=== PATIENT | female | born 1930 | race Caucasian/White ===

== ENCOUNTER 2017-02-11 23:58 | Inpatient (IN) | payer MEDICARE ==
[2017-02-12] MEDS ORDERED: Ondansetron HCl/PF 4 MG/2 ML Vial ONE (01:25)
[2017-02-12] MEDS ORDERED: Ondansetron ODT 4 MG TAB SL PRN (04:33)
[2017-02-12] MEDS ORDERED: Sodium Chloride 0.9% 1,000 ML IV SCH ×2 (04:33→06:07)
[2017-02-12] MEDS ORDERED: Acetaminophen 325 MG TAB PO PRN (04:33)
[2017-02-12] MEDS ORDERED: Ondansetron HCl/PF 4 MG/2 ML Vial IVP PRN ×2 (04:33→06:07)
[2017-02-12] MEDS ORDERED: cefTRIAXone\\ROCEPHIN 2 GM in Sodium Chloride 0.9% 100 ML IVPB SCH (08:00)
[2017-02-12] MEDS: Famotidine/PF 20 mg/2ml Vial SLOW IVP SCH ×2 (09:55→22:27)
[2017-02-12] MEDS ORDERED: Ketorolac Tromethamine 30 MG/ML VIAL IVP PRN (11:08)
[2017-02-12] MEDS ORDERED: Promethazine HCl 25 MG/ML VIAL IM/IV PRN (11:08)
[2017-02-12] MEDS ORDERED: Phytonadione 10 MG/ML AMP PO SCH (11:15)
[2017-02-12] MEDS ORDERED: ISOVUE-370 76%-LOCM 1 ML ONE (11:17)
--- NOTE | 2017-02-12 11:57 | CON ---
DATE OF CONSULTATION: 02/12/2017 GENERAL SURGERY CONSULTATION CHIEF COMPLAINT: Midepigastric pain. HISTORY OF PRESENT ILLNESS: This is an 86-year-old female with a 2-week history of epigastric and ri ght upper quadrant pain radiating to the back and shoulder, associated with nausea. She had fever la st night and pain got worse, came to the emergency room. She had gone to the emergency room in [facility] on the day after Jessica, 02/06/2017. There, they gave her oral antibiotics and she develo ped a rash afterwards, which she felt it was from the antibiotics. PAST MEDICAL HISTORY: Significant for coronary artery disease, hypertension, morbid obesity and hype rlipidemia. PAST SURGICAL HISTORY: Include a hysterectomy and aortic valve replacement with a bovine graft. She has had a laparoscopic hiatal hernia repair in [place] and left inguinal hernia repair. ALLERGIES: She has no known drug allergies. SOCIAL HISTORY: She lives alone. No tobacco or alcohol. FAMILY HISTORY: Noncontributory. PHYSICAL EXAMINATION: VITAL SIGNS: Temperature 98, pulse 62, blood pressure 128/68. GENERAL: She is an obese female lying still, in no apparent distress. HEENT: No jaundice. LUNGS: Clear. HEART: Regular rate and rhythm. ABDOMEN: She has petechiae across her abdomen, primarily in her lower extremities on the skin. Her abdomen is soft, very minimal tenderness. No peritoneal signs, no Tenorio's sign. LABORATORY AND X-RAY FINDINGS: She has a white count of 6.5, H&H 12 and 35, platelet count 132. Her PT is 40 with an INR of 4, PTT is 69.2. Electrolytes show an elevated glucose of 130. Her creatini ne is 1.22. Her liver function tests are normal. Amylase normal, lipase normal. Ultrasound shows a distended gallbladder with a 5 mm thickened wall, questionable sludge, questionable tiny gallstones, common bile duct is 7 mm. Pancreas was poorly defined. ASSESSMENT: Possible cholecystitis. PLAN: I would recommend a HIDA scan, IV antibiotics and we need to get her coags reverse.
[2017-02-12 12:06] LABS: #Monocytes 0.6 thou/uL (0.11-0.59); #Neutrophils 2.7 thou/uL (1.40-6.50); %Basophils 0.9 % (0.0-1.0); %Eosinophils 0.8 % (0.0-10.0); %Lymphocytes 22.3 % (21.0-51.0); %Monocytes 13.4 % (0.0-10.0); %Neutrophils 62.6 % (42.0-75.0); Hemoglobin 11.7 g/dL (12.0-16.0); Mean Platelet Volume 8.5 fL (7.4-10.4); Platelet Count 120 thou/uL (130-400); RBC Distribution Width 11.7 % (11.5-14.5); Red Blood Cell (RBC) Count 3.54 mill/uL (4.20-5.40); White Blood Cell (WBC) Count 4.4 thou/uL (4.8-10.8)
[2017-02-12 12:13] LABS: Fibrinogen 398 mg/dL (253-463)
[2017-02-12 12:14] LABS: D-Dimer Test 0.77 *mcg/mL (0.27-0.43); Prothrombin Time 48.6 SEC (12.0-14.7)
[2017-02-12 12:16] LABS: ALT (SGPT) 259 U/L (8-55); AST (SGOT) 615 U/L (5-34); Albumin 3.7 g/dL (3.4-4.8); Alkaline Phosphatase 313 U/L (40-150); Anion Gap 12 mmol/L (10-20); BUN (Urea Nitrogen) 13 mg/dL (9.8-20.1); Bilirubin, Total 0.3 mg/dL (0.2-1.2); Calc. Creatinine Clearance 46 mL/min (70-130); Carbon Dioxide 25 mmol/L (23-31); Chloride 104 mmol/L (98-107); Estimated GFR-MDRD 48; Globulin 2.7 g/dL (2.4-3.5); Glucose 126 mg/dL (83-110); Potassium 4.1 mmol/L (3.5-5.1); Protein, Total 6.4 g/dL (6.0-8.3); Sodium 137 mmol/L (136-145)
[2017-02-12 12:17] LABS: INR-International Normal Ratio 4.9
--- NOTE | 2017-02-12 12:26 | ULT ---
PRELIMINARY REPORT/[facility]/EMERGENCY AFTER HOURS PROCEDURE: EXAM: US Abdomen Limited, Right Upper Quadrant EXAM DATE/TIME: Exam ordered 02/12/2017 12:34 AM CLINICAL HISTORY: 86 years old, female; Pain; Other: Upper abd pain, abnormal gb seen on 02/07/[address] TECHNIQUE: Real-time ultrasound of the right upper quadrant with image documentation. COMPARISON: No relevant prior studies available. FINDINGS: Liver: Unremarkable. No mass. No intrahepatic bile duct dilation. Gallbladder: Gallbladder is substantially distended. Small amount of sludge and cholelithiasis. Gall bladder wall is mildly and diffusely thickened. Equivocal pericholecystic fluid. Sonographic Tenorio s ign reported as "slightly positive." Common bile duct: Common bile duct is at the upper limits of normal at 7 mm in caliber. The lumen daniel ears echogenic rather than fluid attenuation which raises the possibility of choledocholithiasis. No dilation. Pancreas: Suboptimally visualized pancreas. Right kidney: Unremarkable. No stones. No solid mass. No hydronephrosis. IMPRESSION: 1. Distended gallbladder with mild wall thickening, possible pericholecystic fluid, and "slightly pos itive" sonographic Tenorio's is compatible with acute cholecystitis. There is sludge and cholelithiasi s. 2. Common bile duct is at the upper limits of normal at 7 mm in caliber. The lumen appears echogenic rather than fluid attenuation which raises the possibility of choledocholithiasis. Recommend correla tion with CT scan. Thank you for allowing us to participate in the care of your patient. Dictated and Authenticated by: Cooper Medeiros MD 02/12/2017 1:37 AM Central Time ([place] & [place]) FINAL REPORT EMERGENT AFTER HOURS STUDY ULTRASOUND ABDOMEN LIMITED: (RIGHT UPPER QUADRANT) DATE: 02/12/17. TIME: 1:00 a.m. HISTORY: An 86-year-old female with upper abdominal pain. FINDINGS: Gallbladder: Distended. Mural thickening up to 5 mm. Positive tenderness over the gallbladder. Sma ll amount of sludge. Questionable 1 or 2 tiny mobile gallstones, a few millimeters in size each, adj acent to each other. Common duct: 7 mm. There is a small hyperechoic focus apparently within the lumen of the common bile duct, which may represent a calculus. The fluid contents of the lumen of the common duct are diffus kar mildly increased in echogenicity, which may represent sludge. Liver: No hepatomegaly. Echogenicity within normal limits. Pancreas: Very poorly visualized. Right kidney: No hydronephrosis. This report agrees with preliminary report by [employer]. IMPRESSION: 1. Possible acute cholecystitis: mural thickening of a distended gallbladder with a few questionabl e tiny gallstones, plus a small amount of sludge. 2. Probable choledocholithiasis. LESLIE Menchaca POS: TATIANA
[2017-02-12 12:45] LABS: FSP-Qualitative Normal (Normal)
[2017-02-12 12:46] LABS: Platelet Count 120 thou/uL (130-400)
[2017-02-12] MEDS ORDERED: Furosemide 40 MG/4 ML VIAL SLOW IVP SCH (13:00)
[2017-02-12] MEDS ORDERED: VANCOMYCIN IVPB PRN (13:23)
[2017-02-12] MEDS: Meropenem 1 GM in Sterile Water 20 ML SLOW IVP SCH ×2 (13:48→22:27)
[2017-02-12] MEDS ORDERED: Vancomycin HCl 1 GM in Premix Bag 1 BAG IVPB SCH (14:00)
[2017-02-12] MEDS ORDERED: Meropenem 1 GM in Sodium Chloride 0.9% 100 ML IVPB SCH (14:00)
--- NOTE | 2017-02-12 14:19 | PDOC.PN ---
- Subjective Encounter Start Date: 02/12/17 Encounter Start Time: 08:50 Subjective: sob+, no abd pain -: nausea++ - Objective Resuscitation Status: Resuscitation Status FULL:Full Resuscitation MAR Reviewed: Yes Vital Signs & Weight: Vital Signs (12 hours) Temp Pulse Resp BP Pulse Ox 02/12/17 12:00 91 L 02/12/17 11:06 98.2 F 63 16 149/73 H 89 L 02/12/17 09:45 98.2 F 63 16 91 L 02/12/17 07:49 98 F 62 14 128/68 91 L Weight Admit Weight 169 lb Weight 169 lb Result Diagrams: 02/12/17 11:33 02/12/17 11:32 Phys Exam - Physical Examination HEENT: PERRLA, moist MMs Neck: no JVD, supple Respiratory: no wheezing, no rales rhonchi++ Cardiovascular: RRR, no significant murmur Gastrointestinal: soft, non-tender, no distention, positive bowel sounds Musculoskeletal: no edema, pulses present Neurological: non-focal, moves all 4 limbs Psychiatric: A&O x 3 -: petechiae++ over abd wall and lower extremities Dx/Plan (1) Acute cholecystitis Code(s): K81.0 - ACUTE CHOLECYSTITIS Status: Acute (2) Choledocholithiasis Code(s): K80.50 - CALCULUS OF BILE DUCT W/O CHOLANGITIS OR CHOLECYST W/O OBST Status: Acute (3) CHF exacerbation Code(s): I50.9 - HEART FAILURE, UNSPECIFIED Status: Acute Qualifiers: Congestive heart failure type: unspecified congestive heart failure type Qualified Code(s): I50.9 - Heart failure, unspecified (4) H/O aortic valve replacement with porcine valve Code(s): Z98.890 - OTHER SPECIFIED POSTPROCEDURAL STATES; Z95.3 - PRESENCE OF XENOGENIC HEART VALVE Status: Chronic (5) Warfarin-induced coagulopathy Code(s): D68.9 - COAGULATION DEFECT, UNSPECIFIED; T45.515A - ADVERSE EFFECT OF ANTICOAGULANTS, INITIAL ENCOUNTER Status: Acute (6) Atrial fibrillation Code(s): I48.91 - UNSPECIFIED ATRIAL FIBRILLATION Status: Chronic Qualifiers: Atrial fibrillation type: paroxysmal Qualified Code(s): I48.0 - Paroxysmal atrial fibrillation (7) CAD (coronary artery disease) Code(s): I25.10 - ATHSCL HEART DISEASE OF [place] CORONARY ARTERY W/O ANG PCTRS Status: Chronic Qualifiers: Coronary Disease-Associated Artery/Lesion type: [place] artery [place] vs. transplanted heart: [place] heart Associated angina: without angina Qualified Code(s): I25.10 - Atherosclerotic heart disease of [place] coronary artery without angina pectoris (8) Hypertension Code(s): I10 - ESSENTIAL (PRIMARY) HYPERTENSION Status: Chronic Qualifiers: Hypertension type: essential hypertension Qualified Code(s): I10 - Essential (primary) hypertension - Plan change antibiotics to meropenem and vanc, blood cs stat -: platelets are chronically around 130's -: reverse coumadin, 3 units ffp, vit k -: one dose lasix iv now, npo -: tx to imcu, d/w and Deejay * . echo to r/o veg consult ?sepsis, petechiae, prosth valve d/w son and family in room HIDA when more stable reduce iv fluids to 50mls/hr as pt is npo Review of Systems - Medications/Allergies Allergies/Adverse Reactions: Allergies Allergy/AdvReac Type Severity Reaction Status Date / Time Penicillins Allergy Verified 02/12/17 09:09 Medications: Current Medications Albuterol/Ipratropium (Duoneb) 3 ml NEB [id number] [facility] Famotidine (Pepcid) 20 mg SLOW IVP Q12HR [facility] Last Admin: 02/12/17 09:55 Dose: 20 mg Furosemide (Lasix) 40 mg SLOW IVP 1300 [facility] Stop: 02/12/17 14:30 Last Admin: 02/12/17 13:47 Dose: 40 mg Sodium Chloride (Normal Saline 0.9%) 1,000 mls @ 75 mls/hr IV .[id number] [facility] Last Admin: 02/12/17 08:26 Dose: 1,000 mls Meropenem 1 gm/ Sterile Water 20 mls @ 240 mls/hr SLOW IVP Q8HR [facility] Last Admin: 02/12/17 13:48 Dose: 20 mls Vancomycin HCl 1 gm/ Device 200 mls @ 200 mls/hr IVPB 1400 [facility] Last Admin: 02/12/17 13:46 Dose: 200 mls Ketorolac Tromethamine (Toradol) 15 mg IVP Q6H PRN PRN Reason: Pain Stop: 02/17/17 11:09 Miscellaneous Medication (Pharmacy To Dose) 0 each IVPB DAILYPRN PRN PRN Reason: LABS Ondansetron HCl (Zofran) 4 mg IVP Q6H PRN PRN Reason: Nausea/Vomiting Last Admin: 02/12/17 09:54 Dose: 4 mg Phytonadione (Aquamephyton) 10 mg PO DAILY [facility] Stop: 02/14/17 07:00 Promethazine HCl (Phenergan) 25 mg IM/IV Q6H PRN PRN Reason: Nausea/Vomiting Sodium Chloride (Flush - Normal Saline) 10 ml IVF PRN PRN PRN Reason: Saline Flush
[2017-02-12] MEDS ORDERED: Dextrose 5 % And 0.9 % NaCl 1,000 ML IV SCH (14:30)
--- NOTE | 2017-02-12 15:57 | RAD ---
PORTABLE CHEST 1 VIEW: DATE: 02/12/17. TIME: 12:55 p.m. HISTORY: Nausea, upper abdominal pain, cholecystitis. FINDINGS: Comparison is made with the exam of previous day. There are changes of median sternotomy. The heart is enlarged. The aorta is tortuous. A left-sided pacing device is present. There is a suggestion of small bilateral pleural effusions. No pneumotho races or lobar consolidation are seen. POS: STEFFEN
--- NOTE | 2017-02-12 16:46 | CT ---
CT ABDOMEN WITH CONTRAST CT PELVIS WITH CONTRAST: DATE: 02-12-2017 TIME: 12:21 p.m. HISTORY: 86-year-old female with upper abdominal pain, nausea, and cholecystitis with sepsis. Rule out abscess . COMPARISON: 02-07-17 TECHNIQUE: IV injection of iodinated contrast media: Administered. Oral contrast media: Not administered. FINDINGS: Gallbladder is distended, has mural thickening, and mild pericholecystic edema, all suspicious for ac dangelo cholecystitis. There is no abscess within the abdominal cavity or pelvic cavity. There are new sm all bilateral pleural effusions. Again noted is the herniation of much of the stomach superior to the diaphragm, surrounded by multiple surgical clips. New mild interstitial and streaky densities at the bases of the bilateral lower lobes. Cardiomegaly. No evidence of pneumoperitoneum. Fat-containing le ft inguinal hernia, also containing a 3 x 2.5 x 2.5 cm focal fluid collection within it, probably rep resenting trapped intraperitoneal fluid which has herniated along with the fat. This does not contain any bowel loop. Small amount of free fluid flanking the rectum bilaterally, has slightly increased i n volume since the previous CT. There has been no other significant interval change. The oral contras t material from the previous CT is now only in the colon, with the greatest volume in the rectosigmoi d colon. No hydronephrosis bilaterally. One or two small left renal calculi again noted. Liver has sl ightly lower attenuation now than before. No splenomegaly. Atherosclerotic calcifications without ane urysm of the abdominal aorta. No small bowel dilatation. No acute pancreatitis. No adrenal mass. No s plenomegaly. No acute colonic diverticulitis. IMPRESSION: 1. New bilateral small pleural effusions. 2. Distended gallbladder with mural thickening and pericholecystic edema, concerning for acute cholec ystitis, similar to previous CT. 3. No evidence of abscess within the abdominal cavity or pelvic cavity. 4. Moderate to large hiatal hernia with surrounding surgical clips. 5. New finding of hepatic steatosis. 6. Minimal ascites, slightly increased in volume since the previous CT. 7. Incidental finding of fat containing left inguinal hernia, also containing a collection of intrape ritoneal fluid. 8. Left nephrolithiasis without obstructive uropathy. LESLIE Menchaca POS: TATIANA
--- NOTE | 2017-02-12 18:17 | CON ---
DATE OF CONSULTATION: 02/12/2017 CHIEF COMPLAINT: Abdominal pain. HISTORY OF PRESENT ILLNESS: Ms. Ventura is an 86-year-old woman, who has had intermittent epigastric pain over the last couple of weeks. She complains of aching pain, initially would not last very tigre g, but starting the day after [place] the pain became more constant and has remained there ever sin ce. She complains of epigastric to right upper quadrant pain. There is some radiation to her right back. However, she always has back pain, so this makes as difficult to distinguish. She went to the emergency room on 02/07/[address] scan performed. This showed gallbladder distention and wa ll thickening and possibly inflammatory fat stranding around the gallbladder. She was started on ant ibiotics and was discharged. Again the pain persisted, so she came back to the emergency room last n ight. She has had persistent nausea over the last several days with dry heaves. She has only had so me liquids over the last several days. She had an ultrasound performed in the emergency room last ni ght which showed mild wall thickening and pericholecystic fluid. Sludge and cholelithiasis was repor marin as present. The bile duct was noted to be 7 mm. The lumen was reported as more echogenic and fl uid density. She subsequently underwent CT scan of the abdomen and pelvis. This showed some pleural effusion and gallbladder wall thickening and gallbladder distention and possible inflammatory change s around the gallbladder. A fat containing inguinal hernia and a large hiatal hernia were noted. Kylee ramirez developed worsening respiratory status and her BNP was noted to increase from 800-1700. She requir ed a 50% Ventimask for oxygenation. She was subsequently given Lasix and her breathing immediately i mproved. Her oxygen requirement went back down to just nasal cannula and she was much more comfortab le overall. Currently, she is pain free since receiving the Lasix. PAST MEDICAL HISTORY: Atrial fibrillation, on chronic anticoagulation; history of pacemaker placemen t; coronary artery disease; hypertension. She had EGD and colonoscopy in 2014, which were negative. PAST SURGICAL HISTORY: Appendectomy, coronary artery bypass graft, bioprosthetic aortic valve replac ement, hiatal hernia repair, hysterectomy. FAMILY HISTORY: Negative for GI malignancy. SOCIAL HISTORY: No alcohol, tobacco or drugs. ALLERGIES: No known drug allergies. CURRENT MEDICATIONS: Prior to admission, warfarin, omeprazole, Multaq, aspirin, calcium carbonate, f ken oil, multiple vitamin, furosemide 20 mg daily, amlodipine, metoprolol, simvastatin, lamotrigine. Here in the hospital, she is receiving meropenem. She did receive a dose of vitamin K 10 mg orally. REVIEW OF SYSTEMS: Positive for a new petechial rash on her legs and lower abdomen. PHYSICAL EXAMINATION: VITAL SIGNS: Temperature 100.1, pulse 64, blood pressure 115/42. GENERAL: She is in no acute distress. She is awake and alert. Her son is at the bedside and her da [id number]. EYES: Her eyes have no scleral icterus. OROPHARYNX: Clear, without lesions. NECK: No cervical or supraclavicular lymphadenopathy. LUNGS: Have a few expiratory wheezes, some crackles in the lower lungs. HEART: Regular rate and rhythm. ABDOMEN: Soft, minimal tenderness in the upper abdomen. Negative Tenorio sign. No guarding. Her nettei wel sounds are present. EXTREMITIES: Trace lower extremity edema. She does have a petechial rash over the lower extremities below the knees and in the lower abdomen. LABORATORY DATA: Creatinine 1.09 down from 1.22 last night. Bilirubin 0.3. Her AST jumped to 615 t helen from 33 at 10:00 p.m. last night. Her ALT increased to 259 from 18. Her alkaline phosphatase i ncreased at 313 from 59. Her bilirubin remain stable at 0.3. Albumin 3.7. BNP last night was 843 a nd this morning 1788. INR was 4.9 today. Her white blood cell count was 4.4, hemoglobin 11.7, plate lets 120. She has had low platelets in the past back in 2014 that was 112, yesterday her platelets w ere 132 and on 02/07/2017 that were 150. IMPRESSION: 1. Likely cholecystitis. She presents with upper abdominal pain radiates toward the back and worsen s with eating. This has progressively been worsening over the last several days and is associated wi th nausea and vomiting. CT scan and ultrasound showed gallbladder wall thickening and distention and pericholecystic fluid. Gallstones and sludge were suggested by the most recent ultrasound. The nikolai e duct was mildly dilated at 7 mm, which is not very large for an 86-year-old. 2. Abnormal liver function tests. Her liver tests primarily transaminases and alkaline phosphatase jumped from last night to this morning. At the same time, she developed increased respiratory sympto ms from congestive heart failure. I suspect that the elevated liver tests are due to congestive hepa topathy with ischemia rather than choledocholithiasis. 3. Atrial fibrillation on warfarin. Her INR is increased to 4.9 and she has developed a petechial r shanell. This could be rule out related to infection. We will need to follow the trend of the coags and platelets. She has received vitamin K and we will give an opportunity for this to reverse her warfa rin. RECOMMENDATIONS: 1. Follow trend of the coags after vitamin K. 2. HIDA scan is planned for further evidence of acute cholecystitis. She symptomatically is greatly improved after receiving Lasix and if HIDA scan does confirm cholecystitis, then she will likely nee d cardiac followup for surgical risks. If she ultimately requires cholecystectomy, then intraoperati ve cholangiogram could be performed at the same time to rule out choledocholithiasis. 3. Follow the trend of the LFTs. 4. We will hold the FFP for now is that she does not appear to have immediate need for surgery and f luid overload seems to be a bigger problem for her currently. We will give a chance with vitamin K t o work and use FFP if it becomes necessary.
--- NOTE | 2017-02-12 21:18 | NM ---
HIDA SCAN: Indication: Concern for cholecystitis. Comparison: CT abdomen and pelvis, 02-12-17 and right upper quadrant ultrasound dated 02-12-17. Radiopharmaceutical: 5.4 mCi Technetium 99M MDP IV. FINDINGS: There is expected uptake of the radiotracer within the liver. Bowel activity is seen by the 6 minute time jesus. There is a faint focal collection seen adjacent to the region of the common bile duct, bet ween the left and right hepatic lobe, that increases in time through the one hour time jesus. The amou nt of activity appears to diminish slightly at the 38 minute time jesus through the 60 minute time mar k. Lateral projection demonstrates faint activity seen within the region of the anterior hepatic outl ine. There is prominent bowel activity on the lateral projection. IMPRESSION: Equivocal HIDA scan for cystic duct obstruction. There is a faint collection seen between the right a nd left hepatic lobe that accumulates throughout the 60 minute time jesus that may reflect partial grady ling of a distended gallbladder. Would recommend a repeat evaluation with pretreatment with CCK for a dditional evaluation. Findings were discussed with Dr. Villalba at 8:22 p.m. on 02-12-2017. Code CR. POS: [facility]
[2017-02-12] MEDS ORDERED: Acetaminophen 650 MG Suppository PR PRN (21:51)
[2017-02-12] MEDS: Acetaminophen 325 MG TAB PO PRN (22:28)
--- NOTE | 2017-02-12 22:57 | HP ---
DATE OF ADMISSION: 02/12/2017 TIME OF SERVICE: 0530 hours. CHIEF COMPLAINT: Abdominal pain. HISTORY OF PRESENT ILLNESS: Ms. Ventura is a pleasant 86-year-old white female with history of coron kristin artery disease, seizure disorder, atrial fibrillation, hyperlipidemia, hypertension as well as CK D, who presents to the emergency department again in [place] for ongoing abdominal pain. She presented initially on 02/07/2017 for abdominal pain, nausea, and vomiting. Workup revealed what looks like acute cholecystitis. Per the notes, her symptoms were mild and she was discharged home w [facility] outpatient followup. She returns on the night 02/11/2017 for the same symptoms. LABORATORY DATA: Largely unremarkable except for creatinine up from her baseline was around 0.8-1.22 . She was sent here for surgical evaluation. On arrival, Surgery was contacted, they agreed to consult, but told the ER to have her admit. The pa vonda denies any fevers or chills. No chest pain, shortness of breath noted. No nausea, vomiting at present. No current abdominal pain. PAST MEDICAL HISTORY: 1. Coronary artery disease. 2. Seizure disorder. 3. Hyperlipidemia, primary cholesterol. 4. Atrial fibrillation, paroxysmal. 5. Hiatal hernia. 6. Hypertension. 7. Chronic kidney disease, stage 2-3. 8. Congestive heart failure. PAST SURGICAL HISTORY: Include, 1. Pacemaker placement. 2. Appendectomy. 3. Coronary artery bypass grafting. 4. Left inguinal hernia repair with hiatal hernia repair. 5. Bioprosthetic aortic valve replacement. HOME MEDICATIONS: 1. Zanaflex 4 mg p.o. t.i.d. p.r.n. spasms. 2. Zocor 20 mg p.o. at bedtime. 3. Omeprazole 20 mg daily. 4. Multaq 400 mg p.o. b.i.d. 5. Amlodipine 5 mg daily. 6. Toprol-XL 100 mg daily. 7. Fish oil 1000 mg daily. 8. Lasix 20 mg daily. 9. Multivitamin daily. 10. Vitamin C 500 mg daily. 11. Calcium plus D daily. 12. Nitroglycerin sublingual p.r.n. ALLERGIES: To ASPIRIN, AMOXICILLIN causes rash, BACTRIM-DS causes rash. SOCIAL HISTORY: Negative for habits x3. FAMILY HISTORY: Negative for clotting or bleeding disorder. No immune dysfunction. REVIEW OF SYSTEMS: A 10-point review of systems was performed, negative for all systems except as pe r HPI. PHYSICAL EXAMINATION: VITAL SIGNS: Temperature on arrival 100.7, pulse 64, blood pressure 140/75, respiratory rate 22, sat ting 95% on room air. GENERAL: She is awake. She is alert. She is oriented x3. She is an obese elderly white female, ap pears to be in no distress. HEENT: Normocephalic, atraumatic. Pupils equal and reactive to light bilaterally. Mucous membranes are moist. She has no visible lesions. No thrush. NECK: Supple, without lymphadenopathy, JVD, or thyromegaly. CHEST: Lungs are clear. She has good air movement, symmetrical chest excursion. No wheezes or rale s. CARDIOVASCULAR: She is regular with normal rate. She has normal S1, S2. I do not appreciate holosy stolic murmurs. She does have faint 2/6 systolic ejection murmur, best heard at the right upper ster nal border. Pacer site on the left chest, incision is well healed. The pacemaker generator has good mobility. Previous sternotomy incision is well healed without any abnormalities. ABDOMEN: Obese. It is nontender and nondistended. She has no Tenorio sign. She has no rebound, rig idity or guarding. There is normoactive bowel sounds present in all x4 quadrants. EXTREMITIES: No cyanosis or clubbing. She has trace pedal edema. SKIN: Warm, moist, and well perfused. NEUROLOGIC: Cranial nerves II through XII grossly intact. She has no focal deficits. Normal speech and 5/5 strength. MUSCULOSKELETAL: Normal to inspection. She has no joints that are inflamed, no palpable effusions. LABORATORY DATA: CMP is normal except for creatinine of 1.22 of her baseline around 0.8. CBC showed a white count of 6.5 with normal differential, hemoglobin 12.1, hematocrit 35.7, platelet count 132, 000. RADIOGRAPHIC STUDIES: On 02/11/2017, she had chest x-ray that was negative for acute cardiopulmonary disease. On 02/07/2017, she has CT abdomen and pelvis with acute cholecystitis. ASSESSMENT AND PLAN: 1. Acute cholecystitis: We will admit her to inpatient. Surgery was then consulted. We will keep her n.p.o. and anticipate the possible surgery. 2. Coronary artery disease, without symptoms. Continue home medications. 3. Seizure disorder, no seizure since the first one that she had recently. She is not on any anti-s eizure medications. 4. Hyperlipidemia, primary cholesterol on Zocor, we will continue. 5. Hypertension. Continue home medications. 6. Chronic kidney disease with acute kidney injury, creatinine 1.22. We will give her IV fluids and re-evaluate in the morning. 7. Paroxysmal atrial fibrillation, and she is on Multaq. We will continue.
[2017-02-13 04:57] LABS: #Eosinphils 0.1 thou/uL (0.0-0.7); #Lymphocytes 1.2 thou/uL (1.20-3.40); #Monocytes 0.6 thou/uL (0.11-0.59); %Basophils 0.1 % (0.0-1.0); %Eosinophils 1.7 % (0.0-10.0); %Lymphocytes 24.2 % (21.0-51.0); %Monocytes 12.6 % (0.0-10.0); %Neutrophils 61.3 % (42.0-75.0); Hemoglobin 11.3 g/dL (12.0-16.0); Mean Corpuscular HGB CONC 32.4 g/dL (32.0-36.0); Mean Corpuscular Hemoglobin 33.5 pg (27.0-31.0); Mean Platelet Volume 8.6 fL (7.4-10.4); Platelet Count 111 thou/uL (130-400); RBC Distribution Width 11.6 % (11.5-14.5); Red Blood Cell (RBC) Count 3.38 mill/uL (4.20-5.40); White Blood Cell (WBC) Count 4.9 thou/uL (4.8-10.8)
[2017-02-13 04:58] LABS: ALT (SGPT) 159 U/L (8-55); AST (SGOT) 282 U/L (5-34); Albumin 3.1 g/dL (3.4-4.8); Alkaline Phosphatase 233 U/L (40-150); Anion Gap 11 mmol/L (10-20); BUN (Urea Nitrogen) 16 mg/dL (9.8-20.1); Bilirubin, Total 0.4 mg/dL (0.2-1.2); Calc. Creatinine Clearance 42 mL/min (70-130); Calcium 8.6 mg/dL (7.8-10.44); Carbon Dioxide 29 mmol/L (23-31); Chloride 100 mmol/L (98-107); Estimated GFR-MDRD 42; Globulin 2.5 g/dL (2.4-3.5); Glucose 85 mg/dL (83-110); Potassium 3.8 mmol/L (3.5-5.1); Protein, Total 5.6 g/dL (6.0-8.3); Sodium 136 mmol/L (136-145)
[2017-02-13 05:55] LABS: INR-International Normal Ratio 2.1; Prothrombin Time 24.7 SEC (12.0-14.7)
[2017-02-13] MEDS: Meropenem 1 GM in Sterile Water 20 ML SLOW IVP SCH ×3 (06:35→22:04)
[2017-02-13] MEDS ORDERED: Furosemide 40 MG/4 ML VIAL SLOW IVP SCH (08:15)
[2017-02-13] MEDS: Famotidine/PF 20 mg/2ml Vial SLOW IVP SCH ×2 (08:52→22:04)
[2017-02-13] MEDS ORDERED: Phytonadione 10 MG/ML AMP PO SCH (09:00)
--- NOTE | 2017-02-13 12:47 | PDOC.PN ---
- Subjective Encounter Start Date: 02/13/17 Encounter Start Time: 11:20 Subjective: is sitting in chair, feels good -: no abd pain or sob -: no nausea/chest pain/palp - Objective Resuscitation Status: Resuscitation Status FULL:Full Resuscitation MAR Reviewed: Yes Vital Signs & Weight: Vital Signs (12 hours) Temp Pulse Resp BP Pulse Ox 02/13/17 12:00 98.1 F 65 20 95/51 L 99 02/13/17 08:36 98 02/13/17 08:08 68 22 H 98 02/13/17 08:00 98.6 F 68 22 H 107/42 L 98 02/13/17 05:04 116/53 L 02/13/17 04:33 98.6 F 60 16 98/40 L 97 Weight Admit Weight 169 lb Weight 168 lb 14.4 oz I&O: 02/12/17 02/13/17 02/14/17 06:59 06:59 06:59 Intake Total 322 120 Output Total 2050 Balance -1728 120 Result Diagrams: 02/13/17 04:24 02/13/17 04:24 Phys Exam - Physical Examination HEENT: PERRLA, moist MMs Neck: no JVD, supple Respiratory: no wheezing, no rales Cardiovascular: RRR, no significant murmur Gastrointestinal: soft, non-tender, no distention, positive bowel sounds Musculoskeletal: no edema, pulses present Neurological: non-focal, moves all 4 limbs Psychiatric: A&O x 3 Dx/Plan (1) Acute cholecystitis Code(s): K81.0 - ACUTE CHOLECYSTITIS Status: Acute (2) Choledocholithiasis Code(s): K80.50 - CALCULUS OF BILE DUCT W/O CHOLANGITIS OR CHOLECYST W/O OBST Status: Suspected (3) CHF exacerbation Code(s): I50.9 - HEART FAILURE, UNSPECIFIED Status: Acute Qualifiers: Congestive heart failure type: unspecified congestive heart failure type Qualified Code(s): I50.9 - Heart failure, unspecified (4) H/O aortic valve replacement with porcine valve Code(s): Z98.890 - OTHER SPECIFIED POSTPROCEDURAL STATES; Z95.3 - PRESENCE OF XENOGENIC HEART VALVE Status: Chronic (5) Warfarin-induced coagulopathy Code(s): D68.9 - COAGULATION DEFECT, UNSPECIFIED; T45.515A - ADVERSE EFFECT OF ANTICOAGULANTS, INITIAL ENCOUNTER Status: Acute (6) Atrial fibrillation Code(s): I48.91 - UNSPECIFIED ATRIAL FIBRILLATION Status: Chronic Qualifiers: Atrial fibrillation type: paroxysmal Qualified Code(s): I48.0 - Paroxysmal atrial fibrillation (7) CAD (coronary artery disease) Code(s): I25.10 - ATHSCL HEART DISEASE OF [place] CORONARY ARTERY W/O ANG PCTRS Status: Chronic Qualifiers: Coronary Disease-Associated Artery/Lesion type: [place] artery [place] vs. transplanted heart: [place] heart Associated angina: without angina Qualified Code(s): I25.10 - Atherosclerotic heart disease of [place] coronary artery without angina pectoris (8) Hypertension Code(s): I10 - ESSENTIAL (PRIMARY) HYPERTENSION Status: Chronic Qualifiers: Hypertension type: essential hypertension Qualified Code(s): I10 - Essential (primary) hypertension - Plan inr is 2 this am, is getting vit k -: kcentra if any plans for surgery -: has diuresed well, total of 2 doses of lasix from yesterday -: oral lasix from am, LFT's are trending down, likely cause passive congestio -: clinically is much better today, to amb as tolerated, meropenem iv * . Review of Systems - Medications/Allergies Allergies/Adverse Reactions: Allergies Allergy/AdvReac Type Severity Reaction Status Date / Time Penicillins Allergy Verified 02/12/17 09:09 Medications: Current Medications Acetaminophen (Tylenol) 650 mg PO Q4H PRN PRN Reason: Headache/Fever or Pain Last Admin: 02/12/17 22:28 Dose: 650 mg Acetaminophen (Tylenol) 650 mg AL Q4H PRN PRN Reason: Headache/Fever or Pain Albuterol/Ipratropium (Duoneb) 3 ml NEB H3AO-LB BAYRON Last Admin: 02/13/17 08:08 Dose: 3 ml Famotidine (Pepcid) 20 mg SLOW IVP Q12HR B[place] Last Admin: 02/13/17 08:52 Dose: 20 mg Furosemide (Lasix) 40 mg PO DAILY-AC B[place] Meropenem 1 gm/ Sterile Water 20 mls @ 240 mls/hr SLOW IVP Q8HR BAYRON Last Admin: 02/13/17 06:35 Dose: 20 mls Ketorolac Tromethamine (Toradol) 15 mg IVP Q6H PRN PRN Reason: Pain Stop: 02/17/17 11:09 Miscellaneous Medication (Pharmacy To Dose) 0 each IVPB DAILYPRN PRN PRN Reason: LABS Ondansetron HCl (Zofran) 4 mg IVP Q6H PRN PRN Reason: Nausea/Vomiting Last Admin: 02/12/17 09:54 Dose: 4 mg Phytonadione (Aquamephyton) 10 mg PO DAILY BAYRON Stop: 02/14/17 07:00 Last Admin: 02/13/17 09:48 Dose: 10 mg Promethazine HCl (Phenergan) 25 mg IM/IV Q6H PRN PRN Reason: Nausea/Vomiting Sodium Chloride (Flush - Normal Saline) 10 ml IVF PRN PRN PRN Reason: Saline Flush Last Admin: 02/13/17 08:53 Dose: 10 ml
--- NOTE | 2017-02-13 12:59 | CON ---
DATE OF CONSULTATION: 02/13/2017 REASON FOR CONSULTATION: Skin rash. HISTORY OF PRESENT ILLNESS: An 86-year-old patient who has a history of coronary disease and ischemic cardiomyopathy with previous bioprosthetic valve replacement, aortic valve, as well as atrial fibrillation, on chronic Coumadin, who developed abdominal pain for the past 2 weeks, initially seen in [place] and diagnosed with acute cholecystitis and given antimicrobials, but due to persistence of pain, she eventually was admitted. Initial findings included temperature 100.7, pulse 64, BP 140/75, respiratory rate 22. She was awake, alert, and oriented. Pertinent findings on exam, lung exam was normal. Heart examination was normal except for 2/6 systolic murmur. Abdomen is nondistended and nontender. Initial labs with white cell count 4.4, hemoglobin 11, platelets 120,000 with 62 % neutrophils. INR was 4.9. Sodium 137, creatinine 1.09 and 1.21, AST 615 and 282, ALT 259 and 159, alkaline phosphatase 313 and 233. BNP 1700, albumin 3.7 and 3.1. Microbiology thus far we have negative blood cultures and urine culture. The imaging studies included abdomen and pelvis CT from yesterday which showed pleural effusions, distended gallbladder with mural thickening and pericholecystic edema, no abscess, minimal ascites, nephrolithiasis without obstruction. Currently, Ms. Ventura is sitting up in bed. She denies headaches, visual symptoms, sore throat, odynophagia, dysphagia, no dyspnea or back pain, no chest pain, no abdominal pain, no dysuria. PHYICAL EXAMINATION: SKIN: Petechial lesions in the lower extremities only. The patient has peripheral IV access. No [place] catheter. No lymphadenopathy. HEENT: Ocular movements are conjugate. Oral cavity, still quite a few teeth in place, some decay. NECK: Supple. No jugular venous distention. LUNGS: With symmetric air entry with faint basilar crackles. HEART: S1, S2 regular rate, soft aortic murmur. Pacer site okay. ABDOMEN: Soft and not distended or tender. No ascites. No bladder distention. No organomegaly. No tenderness. EXTREMITIES: No joint inflammatory activity. Pulses are 1+ in dorsalis pedis, 1+ edema in lower extremities. NEUROLOGIC: Plantar responses are flexor. Moves all extremities equally. Cognitive function appears intact. LABORATORY AND X-RAY FINDINGS: Lab data has been discussed above as well as imaging studies. She had hepatobiliary scan done yesterday which showed a possible cystic duct obstruction. ASSESSMENT: Acute cholecystitis in the setting of cardiomyopathy with pacemaker and prior aortic valve replacement. There might be obstructing of the cystic duct associated with this. The patient has petechial rash lower extremities only. DISCUSSION: The patient is on proper treatment and I do not think the vancomycin is necessary. Since the petechial rash is limited to the lower extremities, this seems to have an element of hydrostatic pressure plus platelet dysfunction and thrombocytopenia, all contributing to the finding. Bacteremic associated with leukocytoclastic vasculitis, but I do not think she has evidence to suggest that since most of the petechial rash is limited to the lower extremities. Therefore, again hydrostatic phenomenon plus the combination of platelet dysfunction and thrombocytopenia are contributing to this. Coumadin can be associated with vasculitis and obstructive arteriopathy, which can be associated with petechia, but she does not have the other manifestations, typical of it. Vitamin deficiencies such as vitamin C deficiency can be associated with purpura, but does not look like she has any nutritional issues at least until the development of cholecystitis. I would not recommend any active management of this thrombocytopenia as long as there is no progression with it. She will eventually require cholecystostomy, which is not deemed to be a candidate for cholecystectomy. TUSHAR
--- NOTE | 2017-02-13 18:11 | PRG ---
DATE OF SERVICE: 02/13/2017 SUBJECTIVE: She has no acute complaints today. She is breathing better and does not have any abdomi nal pain currently. OBJECTIVE: VITAL SIGNS: Temperature 99.0, pulse 92, blood pressure 100/43. GENERAL: She is in no acute distress, awake and alert. LUNGS: Clear to auscultation bilaterally. HEART: Regular rate and rhythm. ABDOMEN: Minimal tenderness in the epigastric region. There is no guarding and her bowel sounds are present. EXTREMITIES: No lower extremity edema. LABORATORY DATA: INR is down to 2.1. AST improved to 282, ALT improved to 159, alkaline phosphatase improved to 233, bilirubin remains 0.4. IMPRESSION: 1. Likely cholecystitis. The HIDA scan was not definitive. 2. Abnormal liver function test. I do not think that she has choledocholithiasis. Her elevated tra nsaminases and alkaline phosphatase acutely were likely due to congestive hepatopathy. Sepsis also c ould cause cholestasis and transaminitis, but the high AST with the sudden rise and drop is most cons istent with ischemic etiology. RECOMMENDATIONS: 1. Continue to follow the trend of the liver function tests. 2. She remains on meropenem. 3. Repeat HIDA scan has been scheduled for tomorrow.
[2017-02-14 05:25] LABS: ALT (SGPT) 106 U/L (8-55); AST (SGOT) 146 U/L (5-34); Albumin 3.1 g/dL (3.4-4.8); Alkaline Phosphatase 190 U/L (40-150); Anion Gap 11 mmol/L (10-20); BUN (Urea Nitrogen) 15 mg/dL (9.8-20.1); Bilirubin, Total 0.4 mg/dL (0.2-1.2); Calc. Creatinine Clearance 54 mL/min (70-130); Calcium 8.6 mg/dL (7.8-10.44); Carbon Dioxide 29 mmol/L (23-31); Chloride 99 mmol/L (98-107); Estimated GFR-MDRD 57; Globulin 2.4 g/dL (2.4-3.5); Glucose 87 mg/dL (83-110); Potassium 3.3 mmol/L (3.5-5.1); Protein, Total 5.5 g/dL (6.0-8.3); Sodium 136 mmol/L (136-145)
[2017-02-14] MEDS: Meropenem 1 GM in Sterile Water 20 ML SLOW IVP SCH ×3 (05:27→21:32)
[2017-02-14 05:29] LABS: INR-International Normal Ratio 1.3; Prothrombin Time 16.2 SEC (12.0-14.7)
[2017-02-14 06:01] LABS: Eosinophils 4 % (0-10); Lymphocytes 31 % (21-51); MDiff Complete? YES; Mean Corpuscular HGB CONC 32.1 g/dL (32.0-36.0); Mean Corpuscular Hemoglobin 32.9 pg (27.0-31.0); Mean Platelet Volume 8.7 fL (7.4-10.4); Monocytes 19 % (0-10); Neutrophil 43 % (42-75); PLT Morphology Comment Appears Decreased; Platelet Count 110 thou/uL (130-400); RBC Distribution Width 11.6 % (11.5-14.5); RBC Morphology Normal; Reactive Lymphocytes 3 % (0-10); Red Blood Cell (RBC) Count 3.65 mill/uL (4.20-5.40); White Blood Cell (WBC) Count 4.9 thou/uL (4.8-10.8)
[2017-02-14] MEDS ORDERED: Morphine 2 MG/ML SYRINGE SLOW IVP SCH (10:45)
[2017-02-14] MEDS: Furosemide 40 MG TAB PO SCH (12:05)
[2017-02-14] MEDS: Famotidine/PF 20 mg/2ml Vial SLOW IVP SCH ×2 (12:05→21:32)
--- NOTE | 2017-02-14 13:28 | NM ---
HIDA SCAN: CLINICAL HISTORY: Cholecystitis. RADIOPHARMACEUTICAL: Technetium 99m mebrofenin 5.1 millicuries IV. MEDICATION: Cholecystokinin 1.5 mg thirty minutes prior to injection. Morphine sulfate 2 mg IV. FINDINGS: There is absence of activity within the gallbladder with 60 minutes of imaging. Subsequent to the in jection of morphine, there is scintigraphic activity localizing to the expected confines of the gallb ladder lumen. IMPRESSION: Nonvisualization of the gallbladder by 60 minutes of imaging. Subsequent to morphine injection, ther e is evidence to indicate scintigraphic activity within the gallbladder lumen. Findings indicate chr onic cholecystitis. Correlate clinically. POS: TATIANA
[2017-02-14 15:29] VITALS: BMI 26.0
[2017-02-14] MEDS: Dronedarone HCl 400 MG TAB PO SCH (16:43)
--- NOTE | 2017-02-14 18:30 | CON ---
DATE OF CONSULTATION: 02/14/2017 HISTORY OF PRESENT ILLNESS: Hawa Ventura is a pleasant 86-year-old white female who follows since 12/2002. At that time, she explained about her chest discomfort that occurred sitting right in a car ; however, she started to have that while walking at work, relieved in 3 minutes with rest. She serjio ed any shortness of breath, nausea, vomiting or diaphoresis. Echo revealed ejection fraction of 60-6 5% with aortic valvular fibrosis, mild aortic insufficiency, mild tricuspid regurgitation and moderat e mitral regurgitation. She underwent stress echo testing, exercised for 6 minutes and had her usual upper chest discomfort with [address] segment depression in II, III and aVF, which resolved in 1 mi nute and then later became downsloping during recovery. Echo revealed ischemia in the inferoposterio r wall. She underwent catheterization and had ejection fraction of 55-60% with mild mitral regurgita tion. There was 30% proximal LAD. It was felt that her chest pain was not cardiac in nature. She a lso complained of a tremor and was placed on Inderal and her tremor improved. I did not see her again until 8 years later in April 2010. She complained of chest tightness after w alking 500 yards, resolved in 2-3 minutes with rest. This has been occurring for 3 or 4 months. She also occasionally would have discomfort at night. She denied any shortness of breath, nausea, vomit ing or diaphoresis. She had since stopped the Inderal and her tremor was not bothering her much. Ec hocardiogram revealed a somewhat hyperdynamic left ventricle with ejection fraction of 65%-70%, moder ate concentric left ventricular hypertrophy, moderate mitral regurgitation, mitral annular calcificat ion, mild aortic regurgitation and severe aortic stenosis with peak gradient of 96 mm, mean gradient of 67 mm, moderate tricuspid regurgitation, and mild pulmonic regurgitation. She underwent cardiac c atheterization. The mean left ventricular - aortic gradient was 50 mm with an aortic valve area of 0 .82 cm2. There was mild aortic insufficiency. Left ventricular ejection fraction was 70-75%. There was a 40-50% proximal LAD, 30% proximal circumflex. She then underwent aortic valve replacement by Dr. Lyle Curran with placement of a #21 Magna bioprosthetic aortic valve. Postoperatively, she had atrial fibrillation, controlled with Cardizem drip. She was placed back on her beta harsha and ult imately was placed on Cardizem and amiodarone. Ultimately amiodarone was discontinued. In 03/2012, she presented with a seizure, also complains of left-sided chest discomfort. She was fou nd to have atrial fibrillation at that time. She had been on anticoagulation at the time of admissio n for paroxysmal atrial fibrillation. Echo revealed left atrial enlargement, normal left ventricular systolic function and a bioprosthetic aortic valve. She underwent Cardiolite testing which was norm al. She was then placed on Coumadin. She would have episodes where she became extremely bradycardic with heart rates in the 30s and had greater than four second pauses. A dual chamber pacemaker was t hen placed. She was also placed on Multaq 400 mg b.i.d. due to her paroxysmal atrial fibrillation. On her pacemaker time, she has been seen to have increased episodes of atrial fibrillation. Her meto prolol dose has been gradually increased to 100 mg b.i.d. and this in combination with the Multaq. I t has pretty much kept her out of atrial fibrillation for the past year or two. Also in 09/2015, she complained of exertional chest discomfort and she underwent Lexiscan Cardiolite testing which was pr obably normal with ejection fraction of 76%. Echocardiogram also at that time revealed ejection frac tion of 60-65%, mild left atrial enlargement, severe mitral annular calcification, moderate mitral re gurgitation, bioprosthetic aortic valve with normal function, moderate tricuspid regurgitation and mo derate pulmonic insufficiency. She has been relatively asymptomatic for the last 2 visits to the office, the last of which was in . She now presents with 2-3 days of abdominal pain. Abdominal and pelvis CT in [place] re vealed gallbladder distention following with gallbladder wall thickening and possible pericholecystic inflammatory fat stranding, and small amount of pelvic fluid. Abdominal ultrasound revealed a stent in gallbladder with mild wall thickening, possible pericholecystic fluid, and slightly positive Murp hy's sign. There is sludge and cholelithiasis, bile duct was at the upper limits were normal. She w as then placed on antibiotics and her Coumadin has been held. She denies any recent chest discomfort , shortness of breath, PND, orthopnea, or leg edema. PAST MEDICAL HISTORY: Hypertension, hypercholesterolemia. No history of diabetes, mild coronary art sunday disease, seizure disorder which may in reality have been due to sinus pause and syncope, paroxysm al atrial fibrillation, chronic kidney disease. OPERATIONS: Aortic valve replacement with bioprosthetic valve, dual-chamber pacemaker placement, dainel endectomy, hiatal hernia repair, left inguinal herniorrhaphy. HOME MEDICATIONS: Include Zanaflex 4 mg t.i.d. p.r.n., simvastatin 20 at bedtime, omeprazole 20 vicente y, Multaq 400 mg b.i.d., amlodipine 5 mg daily, metoprolol 100 daily, warfarin, Lasix 20 daily, multi vitamin daily, calcium plus D, and nitroglycerin p.r.n. ALLERGIES: Include AMOXICILLIN causing rash, BACTRIM causing a rash and ASPIRIN will be avoided with WARFARIN. SOCIAL HISTORY: She does not smoke or drink. FAMILY HISTORY: Brother had CABG. REVIEW OF SYSTEMS: Twelve point review of systems otherwise unremarkable. PHYSICAL EXAMINATION: VITAL SIGNS: Blood pressure 99/51, pulse 72. HEENT: PERRL. NECK: Supple. CHEST: Clear. CARDIAC: S1 and S2 are normal, without any S3 or S4. There is a 2/6 systolic ejection murmur in the aortic area along the left sternal border. Carotid upstrokes are normal without bruits. ABDOMEN: Normal bowel sounds without tenderness, organomegaly except for slight tenderness in the ri ght upper quadrant. EXTREMITIES: Revealed no clubbing, cyanosis or edema. NEUROLOGIC: Grossly intact. SKIN: Warm and dry. LABORATORY DATA: EKG revealed atrial pacing, but otherwise unremarkable. X-ray findings as noted ab ove. Hemoglobin 12.0, hematocrit 37.3, white count 4900, platelets 110,000. INR on admission was 4. 0, went up to 4.9, but now is down to 1.3. Sodium 136, potassium 3.3, chloride 99, carbon dioxide 29 , BUN 11, creatinine 0.93. AST on admission was 615, ALT 259, alkaline phosphatase 313 and these hav e fallen to 146, 106 and 190 respectively. BNP 1788.1. IMPRESSION: 1. Acute cholecystitis with probable passing of stone. 2. Minimal coronary artery disease on catheterization in May 2010 with 40-50% proximal left anteri or descending and 30% proximal circumflex. She also had probably normal Cardiolite in 09/2015. 3. Status post aortic valve replacement. 4. Normal left ventricular function. 5. Status post pacemaker placement for 4-second pauses and history of syncope with seizure. 6. Paroxysmal atrial fibrillation, which appears to be under good control with beta harsha and Mult aq. 7. Hypercholesterolemia. 8. Seizures, which may have been due to sinus pause. 9. Hypertension. 10. Positive family history. 11. Venous insufficiency. PLAN: The patient will be maintained on her usual medicines except holding the warfarin. She is cur rently being treated with antibiotics and pressure was somewhat low and metoprolol also will be held. This should be restarted as soon as her pressure will allow to help keep her from developing atrial fibrillation. Multaq will also be resumed. Ms. Ventura appears to be an acceptable cardiac risk fo r general anesthesia and laparoscopic cholecystectomy with minimal coronary artery disease and cathet erization 7 years ago and normal Cardiolite one and a half years ago. I will follow the patient with you.
[2017-02-15] MEDS: Dronedarone HCl 400 MG TAB PO SCH ×2 (06:21→18:52)
[2017-02-15] MEDS: Meropenem 1 GM in Sterile Water 20 ML SLOW IVP SCH ×3 (07:01→21:27)
[2017-02-15] MEDS ORDERED: Midazolam HCl 2 mg/2 ml Vial ONE (07:33)
[2017-02-15] MEDS ORDERED: Fentanyl 100 MCG/2 ML VIAL ONE (07:33)
[2017-02-15] MEDS ORDERED: Bupivacaine 0.25% HCL 30 ML VIAL ONE (07:45)
[2017-02-15] MEDS ORDERED: Iothalamate Meglumine 60% 50 ML VIAL FS ONE (07:45)
[2017-02-15] MEDS ORDERED: Levofloxacin 500 mg/D5W 100 ml Premix Bag ONE (07:52)
[2017-02-15] MEDS ORDERED: Meperidine HCl/PF 25 MG/ML VIAL SLOW IVP PRN (07:53)
[2017-02-15] MEDS ORDERED: Promethazine HCl 25 MG/ML VIAL SLOW IVP PRN (07:53)
[2017-02-15] MEDS ORDERED: Morphine Sulfate 2 MG/ML SYRINGE SLOW IVP PRN (07:53)
[2017-02-15] MEDS ORDERED: Promethazine HCl 25 MG/ML VIAL IM PRN ×2 (07:53→09:23)
[2017-02-15] MEDS ORDERED: Ondansetron HCl/PF 4 MG/2 ML Vial IVP PRN ×2 (07:53→09:23)
[2017-02-15] MEDS ORDERED: HYDROcodone/Acetaminophen 10/325 mg Tablet PO PRN ×2 (09:23)
[2017-02-15] MEDS ORDERED: Morphine 4 MG/ML Carpuject SLOW IVP PRN (09:23)
[2017-02-15] MEDS ORDERED: Mag-Al 1200 mg/1200 mg/30 ML UDCUP PO PRN (09:23)
[2017-02-15] MEDS ORDERED: hydrALAZINE 20 MG/ML VIAL SLOW IVP PRN (09:23)
[2017-02-15] MEDS ORDERED: Calcium Carbonate 500 MG ChewTAB PO PRN (09:23)
[2017-02-15] MEDS ORDERED: Dextrose 50% Abboject 50 ML SYRINGE SLOW IVP PRN (09:23)
[2017-02-15] MEDS ORDERED: Dextrose 5% in Water 1,000 ML IV PRN (09:23)
[2017-02-15] MEDS ORDERED: Sodium Chloride 0.9% 1,000 ML IV SCH (09:30)
[2017-02-15] MEDS ORDERED: Naloxone HCl 0.4 mg/ml Vial ONE (09:36)
[2017-02-15] MEDS ORDERED: Morphine 4 MG/ML VIAL SLOW IVP PRN ×2 (09:41→09:45)
[2017-02-15] MEDS ORDERED: Glycopyrrolate 0.2 MG/ML 5 ML SYRINGE ONE ×2 (09:41→13:31)
--- NOTE | 2017-02-15 10:11 | OP ---
DATE OF PROCEDURE: 02/15/2017 PREOPERATIVE DIAGNOSIS: Acute cholecystitis. SURGEON: Fer Villalba M.D. PROCEDURE PERFORMED: Laparoscopic cholecystectomy with intraoperative cholangiogram. INDICATIONS: The patient is an 86-year-old female who presented with severe epigastric and right upp er quadrant pain. She was over anticoagulated. She was on Coumadin. She had an ultrasound that ini tially showed a questionable stone. CT did show the stones. HIDA scan showed a faint amount of cont rast within the gallbladder. She did have elevated liver functions. FINDINGS: Thickened gallbladder wall, normal cholangiogram. PROCEDURE: After informed consent was obtained, the patient was taken to the operating room and give n general endotracheal anesthesia. She was placed in the supine position, abdomen was prepped and dr aped in the usual fashion. Local anesthesia infiltrated subcutaneously and deep and a subumbilical i ncision was performed. The subcu divided sharply. The fascia grasped and 2 stay sutures of 0 Vicryl placed to either side of midline. Midline incised. Digital palpation revealed no local adhesions. A blunt 10/12 mm trocar inserted. Pneumoperitoneum was created to a pressure of 15 mmHg. A 0 degre e laparoscope inserted. Under direct vision, three 5 mm ports placed subcostally. The gallbladder g rasped and advanced superiorly. The peritoneum lysed to expose the cystic duct, cystic artery and cr itical view. A clip was placed at the base of the gallbladder. Incision made in the cystic duct. A n Arrow cholangiocatheter inserted. Intraoperative cholangiogram was performed utilizing fluoroscopy , showed free flow into the duodenum, no filling defects. The catheter removed. The duct triply lig ated with Hemoclips and divided. The artery triply ligated with Hemoclips and divided. The gallblad aldo was removed from its fossa utilizing electrocautery, removed from the abdomen through the umbilic al port. Hemostasis was assured. Trocars and retractors removed. The fascia closed with interrupte d 0 Vicryl suture. The skin closed with interrupted 4-0 Rapide. Dermabond applied. The patient roberto erated the procedure well and transferred to recovery in good condition. Sponge and needle count les ified correct x2.
--- NOTE | 2017-02-15 10:35 | RAD ---
INTRAOPERATIVE CHOLANGIOGRAM: Date: 02-15-17 History: Cholecystectomy. Intraoperative cholangiogram requested to evaluate for biliary filling defe ct. FINDINGS: Two intraoperative images are provided during intraoperative cholangiogram. There is a possible subcentimeter filling defect noted on both images within the distal CBD just prox imal to the region of the ampulla of Vater. IMPRESSION: Findings suspicious for a subcentimeter filling defect within the distal CBD just proximal to the amp eddy of Vater. Correlation with real-time imaging required. This could be on the basis of choledochol ithiasis, air bubble or potentially blood clot. POS: TATIANA
[2017-02-15] MEDS: Famotidine/PF 20 mg/2ml Vial SLOW IVP SCH (10:50)
[2017-02-15] MEDS: Furosemide 40 MG TAB PO SCH (10:50)
[2017-02-15] MEDS ORDERED: Dexamethasone 20 MG/5 ML VIAL ONE (13:31)
[2017-02-15] MEDS ORDERED: PROPOFOL 200 MG/20 ML VIAL ONE (13:31)
[2017-02-15] MEDS ORDERED: ePHEDrine/0.9% NaCl/PF SYRINGE 50 mg/10 ml ONE (13:31)
[2017-02-15] MEDS ORDERED: Lidocaine 1% PF 5 ML VIAL ONE (13:31)
[2017-02-15] MEDS ORDERED: Ondansetron HCl/PF 4 MG/2 ML Vial ONE (13:31)
--- NOTE | 2017-02-15 14:35 | PDOC.PN ---
- Subjective Encounter Start Date: 02/15/17 Encounter Start Time: 14:33 Subjective: feels much better. no new complaints. -: s/p Lap salv[place] this morning.no AP,no N/V/D - Objective Resuscitation Status: Resuscitation Status FULL:Full Resuscitation MAR Reviewed: Yes Vital Signs & Weight: Vital Signs (12 hours) Temp Pulse Resp BP Pulse Ox 02/15/17 14:33 96 02/15/17 14:27 74 24 H 96 02/15/17 12:21 98.2 F 71 16 108/57 L 97 02/15/17 10:35 99.1 F 73 16 101/50 L 94 L 02/15/17 07:00 98.4 F 73 18 104/53 L 94 L 02/15/17 04:30 93 L 02/15/17 04:00 98.9 F 80 18 102/48 L 93 L Weight Admit Weight 169 lb Weight 166 lb 4.8 oz I&O: 02/14/17 02/15/17 02/16/17 06:59 06:59 06:59 Intake Total 1661 742 Output Total 2150 300 Balance -489 442 Result Diagrams: 02/14/17 04:27 02/14/17 04:27 Additional Labs: Microbiology 02/12/17 Unknown Urine voided Urine Culture - Final 02/12/17 13:15 Venous blood - Left Hand Blood Culture - Preliminary NO GROWTH AT 48 HOURS 02/12/17 13:08 Venous blood - Left Arm Blood Culture - Preliminary NO GROWTH AT 48 HOURS Laboratory Tests 02/11/17 02/11/17 02/12/17 22:10 22:10 11:32 Creatinine 1.22 H 1.09 AST 615 H ALT 259 H Alkaline Phosphatase 313 H B-Natriuretic Peptide 843.8 H 02/12/17 02/13/17 02/14/17 11:33 04:24 04:27 Creatinine 1.21 H 0.93 AST 282 H 146 H ALT 159 H 106 H Alkaline Phosphatase 233 H 190 H B-Natriuretic Peptide 1788.1 H Phys Exam - Physical Examination Constitutional: NAD pale HEENT: PERRLA, moist MMs, sclera anicteric, oral pharynx no lesions Neck: no nodes, no JVD, supple, full ROM Respiratory: no wheezing, no rales, no rhonchi, clear to auscultation bilateral Cardiovascular: RRR, no significant murmur Gastrointestinal: soft, non-tender, no distention, positive bowel sounds surgical sites look Ok Musculoskeletal: no edema, pulses present Neurological: non-focal, normal sensation, moves all 4 limbs Psychiatric: normal affect, A&O x 3 Skin: no rash Dx/Plan (1) Transaminitis Code(s): R74.0 - NONSPEC ELEV OF LEVELS OF TRANSAMNS & LACTIC ACID DEHYDRGNSE Status: Acute (2) Acute cholecystitis Code(s): K81.0 - ACUTE CHOLECYSTITIS Status: Acute (3) Warfarin-induced coagulopathy Code(s): D68.9 - COAGULATION DEFECT, UNSPECIFIED; T45.515A - ADVERSE EFFECT OF ANTICOAGULANTS, INITIAL ENCOUNTER Status: Acute (4) H/O aortic valve replacement with porcine valve Code(s): Z98.890 - OTHER SPECIFIED POSTPROCEDURAL STATES; Z95.3 - PRESENCE OF XENOGENIC HEART VALVE Status: Chronic (5) SIRS (systemic inflammatory response syndrome) Code(s): R65.10 - SIRS OF NON-INFECTIOUS ORIGIN W/O ACUTE ORGAN DYSFUNCTION Status: Acute (6) Atrial fibrillation Code(s): I48.91 - UNSPECIFIED ATRIAL FIBRILLATION Status: Chronic Qualifiers: Atrial fibrillation type: paroxysmal Qualified Code(s): I48.0 - Paroxysmal atrial fibrillation (7) CAD (coronary artery disease) Code(s): I25.10 - ATHSCL HEART DISEASE OF [place] CORONARY ARTERY W/O ANG PCTRS Status: Chronic Qualifiers: Coronary Disease-Associated Artery/Lesion type: [place] artery [place] vs. transplanted heart: [place] heart Associated angina: without angina Qualified Code(s): I25.10 - Atherosclerotic heart disease of [place] coronary artery without angina pectoris (8) Hypertension Code(s): I10 - ESSENTIAL (PRIMARY) HYPERTENSION Status: Chronic Qualifiers: Hypertension type: essential hypertension Qualified Code(s): I10 - Essential (primary) hypertension (9) Chronic diastolic CHF (congestive heart failure) Code(s): I50.32 - CHRONIC DIASTOLIC (CONGESTIVE) HEART FAILURE Status: Chronic Comment: ECHO with NL EF (10) Pacemaker Code(s): Z95.0 - PRESENCE OF CARDIAC PACEMAKER Status: Chronic - Plan plan discussed w/ family, continue antibiotics, PT/OT, respiratory therapy, incentive spirometry, out of bed/ambulate, DVT proph w/SCDs cont meropenam.Post-op care. am labs. -: BNP high.cont Lasix.check CXR.repeat BNP in am -: HR controlled.cont Multaq.cardiology following. -: INR improved.coumadin on hold.Restart w Ok w GS. -: Metoprolol on hold for low BP .monitor & restart if BP better * .DC IVF to prevent fluid OL. * add OT,PT. * likley home in next 24 hours w HH.refuses rehab * am labs Review of Systems - Review of Systems Constitutional: weakness, malaise. negative: fever, chills, sweats, other ENT: negative: Ear Pain, Ear Discharge, Nose Pain, Nose Discharge, Nose Congestion, Mouth Pain, Mouth Swelling, Throat Pain, Throat Swelling, Other Respiratory: negative: Cough, Dry, Shortness of Breath, Hemoptysis, SOB with Excertion, Pleuritic Pain, Sputum, Wheezing Cardiovascular: negative: chest pain, palpitations, orthopnea, paroxysmal nocturnal dyspnea, edema, light headedness, other Gastrointestinal: negative: Nausea, Vomiting, Abdominal Pain, Diarrhea, Constipation, Melena, Hematochezia, Other Genitourinary: negative: Dysuria, Frequency, Incontinence, Hematuria, Retention , Other Musculoskeletal: negative: Neck Pain, Shoulder Pain, Arm Pain, Back Pain, Hand Pain, Leg Pain, Foot Pain, Other Neurological: negative: Weakness, Numbness, Incoordination, Change in Speech, Confusion, Seizures, Other - Medications/Allergies Allergies/Adverse Reactions: Allergies Allergy/AdvReac Type Severity Reaction Status Date / Time amoxicillin Allergy Verified 02/15/17 08:01 Penicillins Allergy Verified 02/12/17 09:09 Medications: Current Medications Acetaminophen (Tylenol) 650 mg PO Q4H PRN PRN Reason: Headache/Fever or Pain Last Admin: 02/12/17 22:28 Dose: 650 mg Acetaminophen (Tylenol) 650 mg [place] Q4H PRN PRN Reason: Headache/Fever or Pain Hydrocodone Bitart/Acetaminophen ([place] 10/325) 1 tab PO Q6H PRN PRN Reason: Moderate Pain (4-6) Hydrocodone Bitart/Acetaminophen ([place] 10/325) 2 tab PO Q6H PRN PRN Reason: Severe Pain (7-10) Al Hydroxide/Mg Hydroxide (Maalox) 15 ml PO Q6H PRN PRN Reason: Dyspepsia Albuterol/Ipratropium (Duoneb) 3 ml NEB G1DH-MH [facility] Last Admin: 02/15/17 14:27 Dose: 3 ml Albuterol/Ipratropium (Duoneb) 3 ml NEB Q4H PRN PRN Reason: Wheezing Calcium Carbonate (Tums) 1,000 mg PO Q4H PRN PRN Reason: Dyspepsia Dextrose/Water (Dextrose 50%) 25 gm SLOW IVP PRN PRN PRN Reason: Hypoglycemia Dronedarone (Multaq) 400 mg PO BID-[facility] Last Admin: 02/15/17 06:21 Dose: 400 mg Enoxaparin Sodium (Lovenox) 40 mg SC 0900 [facility] Famotidine (Pepcid) 20 mg SLOW IVP Q12HR [facility] Last Admin: 02/15/17 10:50 Dose: 20 mg Famotidine (Pepcid) 20 mg PO Q12HR [facility] Famotidine (Pepcid) 20 mg SLOW IVP Q12HR [facility] Fish Oil (Fish Oil) 1,000 mg PO DAILY [facility] Furosemide (Lasix) 40 mg PO DAILY-AC [facility] Last Admin: 02/15/17 10:50 Dose: 40 mg Glucagon (Glucagon) 1 mg IM PRN PRN PRN Reason: Hypoglycemia Hydralazine HCl (Apresoline) 10 mg SLOW IVP Q4H PRN PRN Reason: SBP > 170 or DBP > 100 Meropenem 1 gm/ Sterile Water 20 mls @ 240 mls/hr SLOW IVP Q8HR [facility] Last Admin: 02/15/17 14:32 Dose: 20 mls Dextrose/Water (D5w) 1,000 mls @ 0 mls/hr IV .Q0M PRN; As Directed PRN Reason: Hypoglycemia Sodium Chloride (Normal Saline 0.9%) 1,000 mls @ 120 mls/hr IV .Q8H20M [facility] Last Admin: 02/15/17 10:51 Dose: 1,000 mls Lamotrigine (Lamictal) 100 mg PO DAILY [facility] Morphine Sulfate (Morphine) 2 mg SLOW IVP Q2H PRN PRN Reason: MILD PAIN 1.3 Morphine Sulfate (Morphine) 4 mg SLOW IVP Q2H PRN PRN Reason: MOD PAIN 4-6 Ondansetron HCl (Zofran) 4 mg IVP Q6H PRN PRN Reason: Nausea/Vomiting Last Admin: 02/12/17 09:54 Dose: 4 mg Ondansetron HCl (Zofran) 4 mg IVP Q6H PRN PRN Reason: Nausea/Vomiting Pantoprazole Sodium (Protonix) 40 mg PO DAILY [facility] Promethazine HCl (Phenergan) 25 mg IM/IV Q6H PRN PRN Reason: Nausea/Vomiting Promethazine HCl (Phenergan) 12.5 mg IM Q4H PRN PRN Reason: Nausea/Vomiting Simvastatin (Zocor) 20 mg PO HS [facility] Sodium Chloride (Flush - Normal Saline) 10 ml IVF PRN PRN PRN Reason: Saline Flush Last Admin: 02/14/17 21:33 Dose: 10 ml
[2017-02-15] MEDS ORDERED: Simvastatin 20 MG TAB PO SCH (21:00)
[2017-02-15] MEDS: Famotidine 40 MG/4 ML VIAL SLOW IVP SCH (21:28)
[2017-02-15] MEDS: Famotidine 20 MG TAB PO SCH (21:29)
[2017-02-15] MEDS: Acetaminophen 325 MG TAB PO PRN (23:15)
[2017-02-16 06:45] LABS: #Lymphocytes 0.9 thou/uL (1.20-3.40); #Monocytes 0.8 thou/uL (0.11-0.59); #Neutrophils 3.9 thou/uL (1.40-6.50); %Basophils 0.6 % (0.0-1.0); %Eosinophils 0.2 % (0.0-10.0); %Lymphocytes 15.4 % (21.0-51.0); %Monocytes 13.9 % (0.0-10.0); Hemoglobin 11.4 g/dL (12.0-16.0); Mean Corpuscular HGB CONC 33.2 g/dL (32.0-36.0); Mean Corpuscular Hemoglobin 33.7 pg (27.0-31.0); Mean Platelet Volume 9.1 fL (7.4-10.4); Platelet Count 120 thou/uL (130-400); RBC Distribution Width 11.4 % (11.5-14.5); Red Blood Cell (RBC) Count 3.37 mill/uL (4.20-5.40); White Blood Cell (WBC) Count 5.5 thou/uL (4.8-10.8)
[2017-02-16] MEDS: Meropenem 1 GM in Sterile Water 20 ML SLOW IVP SCH (06:46)
[2017-02-16 06:53] LABS: ALT (SGPT) 64 U/L (8-55); AST (SGOT) 71 U/L (5-34); Albumin 3.1 g/dL (3.4-4.8); Alkaline Phosphatase 140 U/L (40-150); Anion Gap 12 mmol/L (10-20); BUN (Urea Nitrogen) 15 mg/dL (9.8-20.1); Bilirubin, Total 0.6 mg/dL (0.2-1.2); Calc. Creatinine Clearance 52 mL/min (70-130); Calcium 8.6 mg/dL (7.8-10.44); Carbon Dioxide 31 mmol/L (23-31); Chloride 96 mmol/L (98-107); Estimated GFR-MDRD 57; Globulin 2.4 g/dL (2.4-3.5); Glucose 139 mg/dL (83-110); Potassium 3.7 mmol/L (3.5-5.1); Protein, Total 5.5 g/dL (6.0-8.3); Sodium 135 mmol/L (136-145)
[2017-02-16] MEDS ORDERED: Warfarin Sodium 5 MG TAB PO SCH (08:30)
[2017-02-16] MEDS: Dronedarone HCl 400 MG TAB PO SCH (08:55)
[2017-02-16] MEDS: Furosemide 40 MG TAB PO SCH (08:55)
[2017-02-16] MEDS: Famotidine 20 MG TAB PO SCH (08:55)
[2017-02-16] MEDS: Famotidine 40 MG/4 ML VIAL SLOW IVP SCH (08:57)
[2017-02-16] MEDS: Acetaminophen 325 MG TAB PO PRN (08:57)
[2017-02-16] MEDS ORDERED: Enoxaparin Sodium 40 MG/0.4 ML SYRINGE SC SCH (09:00)
[2017-02-16] MEDS ORDERED: lamoTRIgine 100 MG TAB PO SCH (09:00)
[2017-02-16] MEDS ORDERED: Fish Oil 1,000 MG CAP PO SCH (09:00)
[2017-02-16 12:09] VITALS: BP 97/60; TEMP 98.6
--- NOTE | 2017-02-16 20:00 | DIS ---
DATE OF ADMISSION: 02/12/2017 DATE OF DISCHARGE: 02/16/2017 DISCHARGE DISPOSITION: Home with home health. PRIMARY CARE PHYSICIAN: Alberto Roberts M.D. DISCHARGE FOLLOWUP: 1. Followup with PCP. 2. Neurosurgery, Dr. Villalba. DISCHARGE DIAGNOSES: 1. Acute cholecystitis, status post laparoscopic cholecystectomy. 2. Transaminitis secondary to #1. 3. Warfarin-induced coagulopathy, resolved. 4. Chronic atrial fibrillation on chronic anticoagulation. 5. Coronary artery disease. 6. Hypertension. 7. History of aortic valve replacement. 8. Chronic diastolic congestive heart failure. 9. Pacemaker in place. DISCHARGE MEDICATIONS: Coumadin 5 mg daily, omeprazole 20 mg daily, multivitamin daily, fish oil thierry ly, Multaq 400 mg p.o. b.i.d., calcium carbonate with vitamin D daily, aspirin 81 mg daily, vitamin C 500 mg daily, Lasix 20 mg daily, amlodipine 2.5 mg daily, metoprolol succinate 200 mg daily, simvast atin 20 mg daily, lamotrigine 100 mg daily, new medication Flagyl 500 mg every 8 hours for 5 more day s, levofloxacin 500 mg daily for 5 more days, and Florastor 250 mg p.o. daily for 10 days. PROCEDURES DONE IN THE HOSPITAL: 1. Transthoracic echocardiogram, which showed EF of 60-65% and diastolic dysfunction, moderate devante l regurgitation and tricuspid regurgitation. 2. Abdominal ultrasound upon presentation, which shows a distended gallbladder with mild wall thicke teri, possible pericholecystic fluid. CBD upper limit of normal. 3. CT scan of the abdomen and pelvis on admission, which shows small bilateral pleural effusion and distended gallbladder with mural wall thickening and pericholecystic edema concerning for acute salvador cystitis. No abscess. Framsolu-fy-ltiny hiatal hernia also seen along with hepatic steatosis and mi ld ascites. 4. HIDA scan on admission, which is inconclusive for cystic duct obstruction. 5. Repeat HIDA scan 2 days later on 02/14/2017 which once again has nonvisible visualization of the gallbladder. Findings indicate chronic cholecystitis. 6. Laparoscopic cholecystectomy with intraoperative cholangiogram on 02/15/2017. CONSULTATIONS INHOUSE: 1. General Surgery, Dr. Villalba. 2. Gastroenterology, Dr. Lyle Muniz. 3. Cardiology, Dr. Oliva. HISTORY OF PRESENT ILLNESS: Ms. Ventura is an 86-year-old female with past medical history of coronary artery disease, dyslipidemia, chronic atrial fibrillation on Coumadin, as well as hypert ension and chronic kidney disease who presented to ER with complaints of abdominal pain. She was see n initially on 02/07/2017 in the emergency room for similar complaints and was diagnosed with mild ac [place] cholecystitis and was discharged. Her symptoms returned on the night of 02/11/2017 and this time , she was admitted for further evaluation. Ultrasound of the abdomen and CT scan of the abdomen and pelvis was done upon admission with the results mentioned above. She was admitted on empiric antibio tic with a presumptive diagnosis of acute cholecystitis. She was hemodynamically stable. Cardiology was consulted for preoperative evaluation as well as GI and General Surgery were consulted given her transaminitis on presentation. Please see admission history and physical for further details. HOSPITAL COURSE: She was seen by Dr. Villalba and Dr. Muniz from General Surgery and [facility]. HIDA scan was ordered which was inconclusive, so it was repeated. Her transaminitis did not re solve, so decision was made for her to undergo laparoscopic cholecystectomy, which she tolerated very well. Antibiotics were continued and later changed to oral. She had INR of 4 upon presentation, so Coumadin was reversed with vitamin K and her INR prior to disc harge was 1.3 and she was restarted on Coumadin. She is status post day #2 from laparoscopic cholecy stectomy. She was started on Lasix orally 40 mg a day for BNP of 1788. BNP improved to 559 with oral Lasix. H er transaminitis improved and her kidney function also improved which was mildly abnormal upon presen tation. Overall, the patient did very well after laparoscopic cholecystectomy and was discharged by [facility] earlier this morning. She was seen and examined by myself prior to discharge. Home health has been arranged for her. PHYSICAL EXAMINATION: VITAL SIGNS: Temperature 98.6, pulse of 71, respirations 17, saturating 96% on room air, blood press ure 97/60. GENERAL: Distress. CHEST: Clear to auscultation. Rate and rhythm is regular. ABDOMEN: Soft, nontender, nondistended. Surgical site looks clean without dehiscence, erythema or d ischarge. LABORATORY DATA: Total bilirubin 0.6, AST 71, which was 615 on presentation, ALT of 64, which was 25 9 on presentation and alkaline phosphatase 140, which was 313 on presentation. She is instructed to follow with general surgeon and primary care physician as an outpatient. Discha rge plan was discussed with the patient and medication reconciliation was done. She verbalized under standing. Total time spent in the discharge of this patient 32 minutes.
--- NOTE | 2017-03-15 20:55 | PRG ---
DATE OF SERVICE: 02/14/2017 ATTENDING PHYSICIAN: Dr. Rory Malone. SUBJECTIVE: The patient was seen and assessed this morning. She reports that the chest pressure is better this morning. She denies shortness of breath or any other review of systems at this time. PHYSICAL EXAMINATION: HEAD: Normocephalic, atraumatic. EYES: PERRL. NECK: Supple. CHEST: Clear. CARDIAC: S1, S2 were normal, without S3 or S4. She does have a systolic ejection murmur in the aort ic area. ABDOMEN: Nontender, nondistended. EXTREMITIES: No clubbing, cyanosis or edema. NEUROLOGIC: Cranial nerves II-XII grossly intact. LABORATORY DATA: WBC is 4.9, hemoglobin 12.0, hematocrit 37.3, platelets 110 these are lab values fo r 02/14/2017. Her PT on 02/14/2017 was 16.2, INR 1.3, PTT 41.0. CMP on 02/14/2017 sodium 136, potas sium 3.3, chloride 99, CO2 of 29, BUN 15, creatinine 0.93, glucose 87, AST 146, ALT 106, alkaline gareth sphatase 190. ASSESSMENT AND PLAN: 1. Acute transaminitis. 2. Acute cholecystitis. 3. Warfarin induced coagulopathy. 4. History of aortic valve disease. 5. Systemic inflammatory response syndrome. 6. Atrial fibrillation. 7. Coronary artery disease. PLAN: The patient will be continued her antibiotics. We will be providing PT, OT respiratory therap y and encouraging the patient to ambulate. We will continue Lasix. Cardiology is on the case and th ey are controlling her arrhythmia with Multaq. Her INR had improved since we are holding her Coumadi n. The patient is progressing well on the current regimen.
== END 2017-02-16 14:14 | disposition home health service (06) | DRG 417 ==
LOC: ERS 23:58 → SURG A 02-12 04:12 → IMCU/EMU 02-12 14:13 → 2NO 02-14 18:00 → SURG B 02-15 22:39
PROVIDERS: ADMIT Internal Medicine Infectious Disease; ATTEND Internal Medicine Infectious Disease
PROC: 0FT44ZZ Resection of Gallbladder, Percutaneous Endoscopic Approach (ICD-10-PCS; principal; 2017-02-15)
PROC: BF13YZZ Fluoroscopy of Gallbladder and Bile Ducts using Other Contrast (ICD-10-PCS; 2017-02-15)
DX: K81.0 Acute cholecystitis (principal); I50.33 Acute on chronic diastolic (congestive) heart failure; N17.9 Acute kidney failure, unspecified; D68.9 Coagulation defect, unspecified; I48.0 Paroxysmal atrial fibrillation; R65.10 Systemic inflammatory response syndrome (SIRS) of non-infectious origin without acute organ dysfunction; I13.0 Hypertensive heart and chronic kidney disease with heart failure and stage 1 through stage 4 chronic kidney disease, or unspecified chronic kidney disease; I48.2 Chronic atrial fibrillation; G40.909 Epilepsy, unspecified, not intractable, without status epilepticus; N18.3 Chronic kidney disease, stage 3 (moderate); E78.5 Hyperlipidemia, unspecified; E78.00 Pure hypercholesterolemia, unspecified; I25.10 Atherosclerotic heart disease of native coronary artery without angina pectoris; R74.0 Nonspecific elevation of levels of transaminase and lactic acid dehydrogenase [LDH]; T45.515A Adverse effect of anticoagulants, initial encounter; Z79.01 Long term (current) use of anticoagulants; Z95.0 Presence of cardiac pacemaker; Z95.1 Presence of aortocoronary bypass graft; I87.2 Venous insufficiency (chronic) (peripheral); R23.3 Spontaneous ecchymoses; I25.5 Ischemic cardiomyopathy; Z90.710 Acquired absence of both cervix and uterus; E66.9 Obesity, unspecified; Z68.26 Body mass index [BMI] 26.0-26.9, adult; Z95.3 Presence of xenogenic heart valve; K81.1 Chronic cholecystitis
CPT/HCPCS: 36415; 36416; 47532; 71045; 74177; 76705; 78226; 78227; 80053; 83690; 83880; 85025; 85049; 85300; 85362; 85379; 85384; 85610; 85730; 86850; 86900; 86901; 87040; 87086; 88304; 93306; 94640; 96374; A4216; A9537; G8978-GP-CK; G8979-GP-CJ; J0131; J0696; J1100; J1940; J1956; J2001; J2185; J2250; J2310; J2405; J2704; J3010; J3370; J3430; J7050; J7620; Q9961; S0020; S0028

== ENCOUNTER 2017-04-06 05:48 | Day surgery (SDC) | payer MEDICARE ==
[2017-04-05 13:35] VITALS: BMI 25.8
[2017-04-06 06:30] LABS: #Eosinphils 0.5 thou/uL (0.0-0.7); #Lymphocytes 2.3 thou/uL (1.20-3.40); #Monocytes 0.8 thou/uL (0.11-0.59); #Neutrophils 2.3 thou/uL (1.40-6.50); %Basophils 0.7 % (0.0-1.0); %Eosinophils 8.6 % (0.0-10.0); %Lymphocytes 38.2 % (21.0-51.0); %Monocytes 13.7 % (0.0-10.0); %Neutrophils 38.9 % (42.0-75.0); Hemoglobin 12.3 g/dL (12.0-16.0); Mean Corpuscular HGB CONC 33.3 g/dL (32.0-36.0); Mean Corpuscular Hemoglobin 33.7 pg (27.0-31.0); Mean Platelet Volume 8.3 fL (7.4-10.4); Platelet Count 132 thou/uL (130-400); RBC Distribution Width 12.1 % (11.5-14.5); Red Blood Cell (RBC) Count 3.66 mill/uL (4.20-5.40)
[2017-04-06 06:36] LABS: INR-International Normal Ratio 1.1; PTT 28.4 SEC (22.9-36.1); Prothrombin Time 14.2 SEC (12.0-14.7)
[2017-04-06 06:55] LABS: ALT (SGPT) 16 U/L (8-55); AST (SGOT) 23 U/L (5-34); Albumin 3.9 g/dL (3.4-4.8); Alkaline Phosphatase 63 U/L (40-150); Anion Gap 9 mmol/L (10-20); BUN (Urea Nitrogen) 18 mg/dL (9.8-20.1); Bilirubin, Total 1.2 mg/dL (0.2-1.2); Calc. Creatinine Clearance 39 mL/min (70-130); Calcium 9.5 mg/dL (7.8-10.44); Carbon Dioxide 30 mmol/L (23-31); Chloride 103 mmol/L (98-107); Estimated GFR-MDRD 42; Globulin 2.9 g/dL (2.4-3.5); Glucose 105 mg/dL (83-110); Potassium 3.6 mmol/L (3.5-5.1); Protein, Total 6.8 g/dL (6.0-8.3); Sodium 138 mmol/L (136-145)
[2017-04-06] MEDS ORDERED: Lidocaine 2% w/Epinephrine 1:200K 20 ML VIAL ONE (06:55)
[2017-04-06] MEDS ORDERED: CEFAZOLIN/Water 2 GM/20 ML SYRINGE ONE (06:55)
[2017-04-06] MEDS ORDERED: Bupivacaine 0.25% HCL 30 ML VIAL ONE (06:55)
[2017-04-06] MEDS ORDERED: Fentanyl 100 MCG/2 ML VIAL ONE (07:25)
[2017-04-06] MEDS ORDERED: Levofloxacin 500 mg/D5W 100 ml Premix Bag ONE (07:51)
--- NOTE | 2017-04-06 10:25 | OP ---
PREOPERATIVE DIAGNOSIS: Left inguinal hernia. SURGEON: Fer Villalba M.D. PROCEDURE PERFORMED: Left inguinal hernia repair with mesh. INDICATIONS: This is an 86-year-old female who developed a left inguinal bulge and was found to have a hernia. FINDINGS: Left direct inguinal hernia. PROCEDURE IN DETAIL: After informed consent was obtained, patient was taken to the operating room an d given general endotracheal anesthesia. She was placed in the supine position. The left groin was prepped and draped in the usual fashion. Local anesthesia infiltrated subcutaneously and deep. A le ft inguinal incision was performed. Subcu divided sharply. The fascia of the external oblique was i ncised in the direction of its fibers through the external ring. The floor was inspected. A bulge w as found. This was opened and entered the preperitoneal space. A digital dissection was performed i n the preperitoneal space. The femoral canal was inspected. There was no internal femoral hernia. The hernia was reduced and reduction maintained utilizing a PHS hernia system. The posterior layer w as placed in the preperitoneal space. Anterior, it was laid out, sutured to the pubic tubercle with a 2-0 Prolene suture, tucked under the external oblique fascia laterally. Then, the external oblique fascia closed over the mesh with a running 3-0 Vicryl. Then, Meredith's closed with interrupted 3-0 V icryl after hemostasis assured and the skin closed with a running subcuticular 4-0 Rapide. Steri-Str ips applied. Sterile bandage applied. The patient tolerated the procedure well and transferred to [facility] in good condition. Sponge and needle count verified correct x2.
[2017-04-06] MEDS ORDERED: HYDROcodone/Acetaminophen 5/325 mg Tablet ONE (10:59)
--- NOTE | 2017-04-06 13:23 | EKG ---
Test Reason : PREOP Blood Pressure : / mmHG Vent. Rate : 061 BPM Atrial Rate : 061 BPM P-R Int : 124 ms QRS Dur : 110 ms QT Int : 466 ms P-R-T Axes : -07 021 -15 degrees QTc Int : 469 ms Electronic atrial pacemaker T wave abnormality, consider inferior ischemia Abnormal ECG Confirmed by CHANCE VALADEZ ([id number]) on 04/06/2017 1:23:05 PM Referred By: HEATHER Confirmed By:CHANCE VALADEZ
== END 2017-04-06 11:02 | disposition home or self-care (01) ==
LOC: SDC 05:48
PROVIDERS: ATTEND Surgery
PROC: 0YU60JZ Supplement Left Inguinal Region with Synthetic Substitute, Open Approach (ICD-10-PCS; principal; 2017-04-06)
DX: K40.90 Unilateral inguinal hernia, without obstruction or gangrene, not specified as recurrent (principal); Z88.0 Allergy status to penicillin; Z88.1 Allergy status to other antibiotic agents; Z98.890 Other specified postprocedural states
CPT/HCPCS: 49505; 80053; 85025; 85610; 85730; 93005; C1781; 36415; 93010; J1956; J3010; S0020

== ENCOUNTER 2017-06-13 23:44 | Inpatient (IN) | payer MEDICARE ==
[2017-06-14] MEDS ORDERED: Ondansetron ODT 4 MG TAB ONE ×2 (00:12→01:03)
[2017-06-14 00:20] LABS: #Eosinphils 0.4 thou/uL (0.0-0.7); #Lymphocytes 1.8 thou/uL (1.20-3.40); #Monocytes 0.7 thou/uL (0.11-0.59); #Neutrophils 6.5 thou/uL (1.40-6.50); %Basophils 0.1 % (0.0-1.0); %Eosinophils 3.7 % (0.0-10.0); %Lymphocytes 19.2 % (21.0-51.0); %Monocytes 7.6 % (0.0-10.0); %Neutrophils 69.3 % (42.0-75.0); Hemoglobin 13.2 g/dL (12.0-16.0); Mean Corpuscular HGB CONC 34.9 g/dL (32.0-36.0); Mean Corpuscular Hemoglobin 34.7 pg (27.0-31.0); Mean Corpuscular Volume 99.4 fl (81.0-99.0); Mean Platelet Volume 7.7 fL (7.4-10.4); Platelet Count 135 thou/uL (130-400); RBC Distribution Width 11.9 % (11.5-14.5); White Blood Cell (WBC) Count 9.4 thou/uL (4.8-10.8)
[2017-06-14 00:33] LABS: Bilirubin Negative (Negative); Blood, Urine Negative (Negative); Clarity CLEAR (Clear); Glucose, Urine (Dipstick) Negative (Negative); Leukocyte Small (Negative); Nitrite Negative (Negative); Protein, Urine (Dipstick) Trace mg/dL (Neg-Trace); Specific Gravity, Urine 1.017 (1.002-1.036)
[2017-06-14 00:36] LABS: Bacteria/HPF None Seen HPF (None Seen); Hyaline Casts/LPF 0-3 HYALINE CAST LPF (0-3 Hyaline); RBC/HPF 0-3 HPF (0-3); Squamous Epithelial 0-3 HPF (0-3)
[2017-06-14 00:42] LABS: ALT (SGPT) 19 U/L (8-55); AST (SGOT) 29 U/L (5-34); Albumin 4.1 g/dL (3.4-4.8); Alkaline Phosphatase 85 U/L (40-150); Anion Gap 11 mmol/L (10-20); BUN (Urea Nitrogen) 22 mg/dL (9.8-20.1); Bilirubin, Total 0.8 mg/dL (0.2-1.2); CK (CPK) 110 U/L (29-168); Calc. Creatinine Clearance 0 mL/min (70-130); Calcium 9.2 mg/dL (7.8-10.44); Carbon Dioxide 30 mmol/L (23-31); Chloride 101 mmol/L (98-107); Estimated GFR-MDRD 41; Globulin 2.9 g/dL (2.4-3.5); Glucose 138 mg/dL (83-110); Potassium 3.9 mmol/L (3.5-5.1); Sodium 138 mmol/L (136-145)
[2017-06-14 00:44] LABS: CKMB 1.4 ng/mL (0-6.6); Troponin I Less than 0.010 ng/mL (< 0.028)
[2017-06-14] MEDS ORDERED: Morphine 4 MG/ML VIAL ONE (00:55)
[2017-06-14] MEDS ORDERED: Ondansetron HCl/PF 4 MG/2 ML Vial IVP PRN ×2 (04:40→09:31)
[2017-06-14] MEDS ORDERED: Ondansetron ODT 4 MG TAB SL PRN ×2 (04:40→09:31)
[2017-06-14] MEDS ORDERED: Morphine 4 MG/ML VIAL SLOW IVP PRN (04:40)
[2017-06-14] MEDS ORDERED: D5 1/2 NS w/20 mEq KCL 1,000 ML IV SCH (04:45)
[2017-06-14 08:03] LABS: Anion Gap 9 mmol/L (10-20); BUN (Urea Nitrogen) 19 mg/dL (9.8-20.1); Calc. Creatinine Clearance 48 mL/min (70-130); Calcium 8.3 mg/dL (7.8-10.44); Carbon Dioxide 26 mmol/L (23-31); Chloride 105 mmol/L (98-107); Estimated GFR-MDRD 52; Glucose 150 mg/dL (83-110); Lipase 24 U/L (8-78); Magnesium 2.3 mg/dL (1.6-2.6); Phosphorus 2.8 mg/dL (2.3-4.7); Potassium 4.6 mmol/L (3.5-5.1); Sodium 135 mmol/L (136-145)
--- NOTE | 2017-06-14 08:49 | RAD ---
SINGLE VIEW OF THE CHEST: COMPARISON: None. HISTORY: Diffuse abdominal pain. FINDINGS: A single view of the chest shows an enlarged but stable cardiomediastinal silhouette. The patient is status post sternotomy. An NG tube is seen with its tip in the stomach. The pacemaker is unchanged in position. Opacity is seen in the left lower lobe which may represent atelectasis or an infiltrat e. IMPRESSION: Left lower lobe atelectasis versus infiltrate. POS: CET
[2017-06-14] MEDS ORDERED: Eucerin (Mineral Oil/Petrolatum,White) 30 gm Jar TOP PRN (09:31)
[2017-06-14] MEDS ORDERED: Acetaminophen 650 MG Suppository PR PRN (09:31)
[2017-06-14] MEDS ORDERED: Chloraseptic Spray 180 ml Bottle PO PRN (09:31)
[2017-06-14] MEDS ORDERED: hydrALAZINE 20 MG/ML VIAL SLOW IVP PRN (09:31)
[2017-06-14] MEDS ORDERED: Sodium Chloride 0.65% Nasal 44 ML BOT EA NARE PRN (09:31)
[2017-06-14] MEDS ORDERED: Artificial Tears 18 DROP/0.9 ML EA EYE PRN (09:31)
[2017-06-14 10:02] LABS: INR-International Normal Ratio 1.7; Prothrombin Time 20.9 SEC (12.0-14.7)
--- NOTE | 2017-06-14 10:08 | CON ---
DATE OF CONSULTATION: 06/14/2017 CHIEF COMPLAINT: Groin pain. HISTORY OF PRESENT ILLNESS: This is an 87-year-old female who underwent a left inguinal hernia repai r with mesh in March who developed a recurrent painful left groin bulge and vomiting. CT scan harriett wed a recurrent left inguinal hernia with a small-bowel obstruction. Last flatus was last night. PAST MEDICAL HISTORY: Coronary artery disease, seizure disorder, hyperlipidemia, atrial fibrillation , hypertension, renal insufficiency, congestive heart failure. PAST SURGICAL HISTORY: Pacemaker, appendectomy, CABG, left inguinal hernia repair, hiatal hernia rep air, aortic valve repair. MEDICATIONS: She is on Coumadin, simvastatin, aspirin, Lasix. ALLERGIES: PENICILLIN. PHYSICAL EXAMINATION: VITAL SIGNS: Temperature 98.4, pulse 78, blood pressure 129/70. GENERAL: She is currently in no apparent distress. She has an NG tube in, only 100 mL out. HEENT: Otherwise unremarkable. LUNGS: Clear. HEART: Irregular, irregular. ABDOMEN: Soft, nondistended, nontender. I do not feel a palpable bulge or hernia, at this time. It is not tender. LABORATORY AND X-RAY FINDINGS: Her white count is 9.4, H&H 13 and 37, platelet count 135. Electroly yonny are fine. EKG shows atrial fibrillation at 61. ASSESSMENT: Possible recurrent left inguinal hernia with a small-bowel obstruction. PLAN: Repeat KUB, check PT, PTT, because she is on Coumadin.
--- NOTE | 2017-06-14 10:42 | CT ---
PRELIMINARY REPORT/[facility]/EMERGENTY AFTER-HOURS PROCEDURE CT Abdomen and Pelvis Without Intravenous Contrast EXAM DATE/TIME: Exam ordered 06/14/2017 1:28 AM CLINICAL HISTORY: 87 years old, female; Pain; Abdominal pain; Generalized; Patient HX: Er5; F85 presents to ed C/O diff use abdominal pain onset before 1999. Pt reports it started in her lower abdomen. This does feel geraldine lar to when her hernia was incarcerated. She had surgery on it 2 months ago. Pt has passed some gas TECHNIQUE: Axial computed tomography images of the abdomen and pelvis without intravenous contrast. Coronal refo rmatted images were created and reviewed. COMPARISON: No relevant prior studies available. FINDINGS: Lung bases: Unremarkable. No mass. No consolidation. Mediastinum: Large hiatal hernia. ABDOMEN: Liver: Unremarkable. Gallbladder and bile ducts: Prior cholecystectomy. No ductal dilation. Pancreas: Unremarkable. No ductal dilation. Spleen: Unremarkable. No splenomegaly. Adrenals: Unremarkable. No mass. Kidneys and ureters: Nonobstructive nephrolithiasis left kidney. Stomach and bowel: High-grade distal small bowel obstruction with transition point in the left lower quadrant/left pelvis, near the orifice of a small persistent left inguinal hernia which contains fat and a trace pocket of fluid. The fluid tracks up to small bowel near the transition point. It is conc eivable that the patient was obstructed secondary to a small bowel containing left inguinal hernia up on presentation but has subsequently been reduced. There is a small chance that this pocket of fluid in the left lower hernia is actually a small residual herniated portion of the small bowel, resulting in persistent obstruction. No bowel thickening. PELVIS: Appendix: Appendix not visualized. No evidence of appendicitis. Bladder: Unremarkable. No stones. Reproductive: Prior hysterectomy. ABDOMEN and PELVIS: Intraperitoneal space: Unremarkable. No free air. No significant fluid collection. Bones/joints: No acute fracture. No dislocation. Soft tissues: Prior left inguinal hernia repair. Vasculature: Unremarkable. No abdominal aortic aneurysm. Lymph nodes: Unremarkable. No enlarged lymph nodes. IMPRESSION: High-grade distal small bowel obstruction with transition point in the left lower quadrant/left pelvi s, near the orifice of a small persistent left inguinal hernia which contains fat and a trace pocket of fluid. The fluid tracks up to small bowel near the transition point. It is conceivable that the patient was obstructed secondary to a small bowel containing left inguinal hernia upon presentation but has subse quently been reduced. There is a small chance that this pocket of fluid in the left lower hernia is a ctually a small residual herniated portion of the small bowel, resulting in persistent obstruction. Thank you for allowing us to participate in the care of your patient. Dictated and Authenticated by: Cooper Medeiros MD 06/14/2017 2:45 AM Central Time ([place] & [place]) FINAL REPORT CT ABDOMEN AND PELVIS NONCONTRAST: DATE: 06/14/17. TIME: Performed on an emergency basis at 0129 hours. HISTORY: Bilateral flank pain. FINDINGS: The findings agree with the preliminary report by Dr. Medeiros from [facility]. Nonobstructing left renal calculi are stable. Lack of contrast limits evaluation for other abnormalities. Partial distal small bowel obstruction i s confirmed. Fluid in the left inguinal hernia has increased slightly since a 03/19/17 exam. POS: [facility]
[2017-06-14] MEDS ORDERED: Morphine 4 MG/ML VIAL IV PRN (10:59)
--- NOTE | 2017-06-14 11:30 | RAD ---
FRONTAL VIEW ABDOMEN/KUB SERIES: INDICATION: Small bowel obstruction. FINDINGS: Enteric catheter traverses to the medial left upper quadrant. There are air-filled distended loops o f bowel in the abdomen and pelvis. No obvious free air visualized, although portions of the upper ab domen are excluded which limits evaluation. IMPRESSION: Air-filled distended loops of bowel of the abdomen and pelvis correlative to the prior history of bow el obstruction. Recommend continued followup. POS: [facility]
--- NOTE | 2017-06-14 11:37 | HP ---
PRIMARY CARE PHYSICIAN: Dr. Alberto Roberts. REASON FOR ADMISSION: Small-bowel obstruction. HISTORY OF PRESENT ILLNESS: An 87-year-old female who has previous history of coronary artery diseas e with CABG as well as inguinal hernia repair who presented to emergency room with a complaint of lef t-sided abdominal pain. Predominantly, she was hurting in her left lower quadrant and subsequently p ain started diffusely along with abdominal distention. She felt nausea, but no vomiting. The patien t was having a 4/10 in intensity abdominal pain, which was intermittent, crampy, associated with naus ea. She was passing gas. She reported that she had exactly similar symptoms when her hernia was inc arcerated and required surgery about 2 months ago. With these symptoms, she went to emergency room and in the emergency room, patient had a CT of the ab domen and pelvis which showed high grade distal small-bowel obstruction with transition point in left lower quadrant and left pelvis. The patient was admitted under Sound team and Dr. Villalba was consult ed. This patient denies any chest pain, palpitation, dizziness, syncope. She denies any UTI symptoms. S he denies any melena or hematochezia. She denies any headache, focal motor or sensory symptoms. In the past, this patient had a surgery by Dr. Villalba in 03/2017 and that was for left inguinal hernia repair with mesh. REVIEW OF SYSTEMS: The following complete review of systems was negative, unless otherwise mentioned in the HPI or below: Constitutional: Weight loss or gain, ability to conduct usual activities. Skin: Rash, itching. Eyes: Double vision, pain. ENT/Mouth: Nose bleeding, neck stiffness, pain, tenderness. Cardiovascular: Palpitations, dyspnea on exertion, orthopnea. Respiratory: Shortness of breath, wheezing, cough, hemoptysis, fever or night sweats. Gastrointestinal: Poor appetite, abdominal pain, heartburn, nausea, vomiting, constipation, or diarr hea. Genitourinary: Urgency, frequency, dysuria, nocturia. Musculoskeletal: Pain, swelling. Neurologic/Psychiatric: Anxiety, depression. Allergy/Immunologic: Skin rash, bleeding tendency. Please see my HPI for pertinent positive and negative. All other review of systems reviewed and nega tive except as mentioned in the HPI. ALLERGIES: AMOXICILLIN, PENICILLIN. CURRENT HOME MEDICATIONS: Amlodipine 2.5 mg p.o. daily, vitamin C 500 mg p.o. daily, aspirin 81 mg p .o. daily, calcium with vitamin D 1 tablet p.o. daily, Multaq 400 mg p.o. b.i.d., fish oil 1000 mg p. o. daily, Lasix 20 mg p.o. daily, lamotrigine 100 mg p.o. daily, Toprol-XL 200 mg p.o. daily, multivi tamin 1 tablet p.o. daily, omeprazole 20 mg p.o. daily, Zocor 20 mg p.o. at bedtime, warfarin 6 mg p. o. daily. PAST MEDICAL HISTORY: Generalized seizure disorder, hypertension, dyslipidemia, history of hiatal he rnia, paroxysmal atrial fibrillation, coronary artery disease, chronic kidney disease stage 3, histor y of pacemaker. PAST SURGICAL HISTORY: Pacemaker surgery, hysterectomy, appendicectomy, CABG, valve replacement with a bovine valve, left inguinal hernia repair, hiatal hernia surgery. PAST PSYCHIATRIC HISTORY: Reviewed and negative. SOCIAL HISTORY: Patient lives at home alone. She denies any tobacco, alcohol or illicit drug abuse history. FAMILY HISTORY: No strong family history of premature coronary artery disease, stroke or cancer. EMERGENCY ROOM COURSE: Patient was given Zofran 4 mg sublingual, morphine 4 mg, IV fluid. PHYSICAL EXAMINATION: VITAL SIGNS: On arrival, blood pressure is 160/57, pulse 70, respiratory rate 16, temperature 97.9, saturation 96% on room air, weight 74.8 kilograms. GENERAL: Patient is currently alert, awake, in no obvious acute distress. HEENT: Head: Normocephalic, atraumatic. Eyes: Pupils round, reactive to light. Extraocular muscl e intact. ENT: NG tube in place with low intermittent suction. Oropharynx within normal limits. M oist mucous membrane. No oral lesion, no pharyngeal erythema, no exudate. NECK: Supple, no JVD, no thyromegaly, no carotid bruit, no jugular venous distention. LUNGS: Clear to auscultation without any rhonchi or rales. CARDIAC: S1, S2 regular. Systolic murmur present. No gallop, no rub. ABDOMEN: Slightly distended. Diffuse, vague discomfort noted. Bowel sounds present. Surgical scar is well healed. No peritoneal sign, no guarding, no rigidity, no rebound. BACK: Unremarkable, no CVA tenderness. EXTREMITIES: Upper extremity, passive movement of all joints are normal. Lower extremity, no edema. Good peripheral pulsation. SKIN: No skin rash. HEMATOLOGICAL: No lymphadenopathy. NEUROLOGIC: The patient is currently alert, oriented x3. Cranial nerves II through XII intact. Mot or and sensation within normal limits. No focal neurological deficit noted. SIGNIFICANT LABORATORY DATA AND IMAGIN. EKG done in the emergency room showing pacemaker rhythm. 2. CT of the abdomen and pelvis reported as high grade distal small-bowel obstruction with transitio n point in the left lower quadrant. CBC: WBC 9.4, hemoglobin 13.2, platelet 135. INR 1.7. BMP: Sodium 138, potassium 3.9, chloride 10 1, carbon dioxide 30, anion gap 11, BUN 22, creatinine 1.23, glucose 138, calcium 9.2, phosphorus 2.8 , magnesium 2.3. LFT: AST 29, ALT 19, alkaline phosphatase 85, albumin 4.1, CK 110, CK-MB 1.4, trop onin I less than 0.010. Lipase 24. Urinalysis consistent with leukocyte esterase small. ASSESSMENT AND PLAN: 1. Small-bowel obstruction. The patient does have radiologically proven left-sided distal small-bow el obstruction with transition point on the left hemipelvis. Dr. Villalba already evaluated this patien t and he is suspecting recurrent left inguinal hernia with small-bowel obstruction. X-ray KUB is ord ered. Patient already has NG tube with low intermittent suction. The patient is already on IV fluid . She is n.p.o. We will defer further management to General Surgery. We will try to treat conserva tively. Currently, she does have bowel sound. 2. History of a bovine prosthetic valve. Based on echocardiography in 02/2017, the patient has norm al functioning bioprosthetic valve in aortic position and at the same time, the patient does have mod erate mitral regurgitation and moderate tricuspid regurgitation. As the patient is n.p.o. and the swati ferrari is already on chronic anticoagulation therapy with warfarin, we will continue Lovenox 40 mg sub cu daily while in hospital. When the patient is able to take p.o. and at that time, we will resume w arfarin therapy and monitor PT/INR on daily basis. 3. Hypertension. Currently, the patient's blood pressure is well controlled. She is n.p.o. We buddy l use p.r.n. basis hydralazine for blood pressure if needed. Upon oral intake, we will resume amlodi pine 2.5 mg p.o. daily. 4. Paroxysmal atrial fibrillation. Currently, the patient appears to be in sinus rhythm. She has p acemaker rhythm. She is on Multaq 400 mg twice daily and she is on chronic anticoagulation therapy w ith warfarin. Upon starting oral intake, we will resume Multaq, warfarin as well as aspirin therapy. 5. Gastroesophageal reflux disease. At this point, the patient is n.p.o. and we will start Protonix 40 mg IV daily. 6. Dyslipidemia. We will continue Zocor 20 mg p.o. at bedtime when the patient able to start p.o. i ntake. 7. Coronary artery disease. She will continue aspirin, Toprol-XL 200 mg p.o. daily upon starting or al intake along with the Zocor 20 mg p.o. at bedtime. 8. Deep venous thrombosis prophylaxis. At this point, we are giving her Lovenox 40 mg subcu daily, but then we will start warfarin therapy. 9. Gastrointestinal prophylaxis. Patient is already on Protonix therapy. 10. Code status: The patient is FULL CODE. Patient does not have any surrogate decision maker. Disposition plan based on clinical course and General Surgery recommendation. It is unclear whether this patient will need surgery at this point or not. We will monitor clinically while in hospital an d we will decide accordingly based on clinical course. Plan of care discussed with the patient in de tail.
[2017-06-14] MEDS: Dextrose 5 % And 0.9 % NaCl 1,000 ML IV SCH ×2 (15:17→22:55)
[2017-06-15 04:46] LABS: INR-International Normal Ratio 1.7; PTT 32.2 SEC (22.9-36.1); Prothrombin Time 20.1 SEC (12.0-14.7)
[2017-06-15 04:56] LABS: Anion Gap 6 mmol/L (10-20); BUN (Urea Nitrogen) 9 mg/dL (9.8-20.1); Calc. Creatinine Clearance 59 mL/min (70-130); Calcium 8.1 mg/dL (7.8-10.44); Carbon Dioxide 27 mmol/L (23-31); Chloride 110 mmol/L (98-107); Estimated GFR-MDRD 66; Glucose 136 mg/dL (83-110); Magnesium 2.3 mg/dL (1.6-2.6); Phosphorus 2.1 mg/dL (2.3-4.7); Potassium 4.1 mmol/L (3.5-5.1); Sodium 139 mmol/L (136-145)
[2017-06-15 05:43] LABS: #Eosinphils 0.4 thou/uL (0.0-0.7); #Lymphocytes 1.8 thou/uL (1.20-3.40); #Monocytes 0.5 thou/uL (0.11-0.59); #Neutrophils 1.8 thou/uL (1.40-6.50); %Basophils 0.5 % (0.0-1.0); %Eosinophils 8.1 % (0.0-10.0); %Lymphocytes 39.9 % (21.0-51.0); %Monocytes 12.2 % (0.0-10.0); %Neutrophils 39.4 % (42.0-75.0); Hemoglobin 11.6 g/dL (12.0-16.0); MDiff Complete? YES; Macrocytosis SLIGHT = 6-15 cells (100X) (0-5/hpf); Mean Corpuscular HGB CONC 32.9 g/dL (32.0-36.0); Mean Corpuscular Hemoglobin 33.5 pg (27.0-31.0); Mean Platelet Volume 8.3 fL (7.4-10.4); PLT Morphology Comment Appears Decreased; Platelet Count 116 thou/uL (130-400); RBC Distribution Width 12.1 % (11.5-14.5); Red Blood Cell (RBC) Count 3.45 mill/uL (4.20-5.40); White Blood Cell (WBC) Count 4.4 thou/uL (4.8-10.8)
[2017-06-15] MEDS: Dextrose 5 % And 0.9 % NaCl 1,000 ML IV SCH ×4 (06:30→21:34)
--- NOTE | 2017-06-15 07:50 | RAD ---
KUB: INDICATION: History of small bowel obstruction. COMPARISON: Prior exam dated 06/14/17. FINDINGS: The extent of the air-filled small bowel distention is improved from the comparison examination. Gas tric catheter has been withdrawn to the level of the gastroesophageal junction. Again seen is a mode rate-sized hiatal hernia. Cholecystectomy clips are seen within the right upper quadrant. Chronic o sseous changes are similar. IMPRESSION: 1. Improvement in the distention of the small bowel since the comparison examination. Gas is presen t to the level of the rectum. 2. Gastric catheter withdrawn to the level of the gastroesophageal junction. Recommend advancement if clinically indicated. 3. Moderate hiatal hernia. POS: [facility]
[2017-06-15] MEDS ORDERED: Enoxaparin Sodium 40 MG/0.4 ML SYRINGE SC SCH (09:00)
--- NOTE | 2017-06-15 11:08 | RAD ---
SMALL BOWEL FOLLOW THROUGH: INDICATION: Small bowel obstruction. TECHNIQUE: Gastrografin contrast is administered through the patient's gastric catheter and subsequent overhead spot images were obtained through 1 hour to evaluate the small bowel transit time and to evaluate for possible small bowel obstruction. FINDINGS: Activity Aide images demonstrate a gastric catheter within the region of the gastric body. Bowel gas pattern is not obstructed. Subsequent images demonstrate contrast opacification of multiple nondilated loop s of small bowel. There is contrast transit to the level of the large bowel by 15 minutes. No defin ite acute osseous abnormality is evident. IMPRESSION: 1. No evidence of small bowel obstruction. 2. Slightly accelerated small bowel transit time of 15 minutes. POS: [facility]
--- NOTE | 2017-06-15 11:58 | PDOC.PN ---
- Subjective Encounter Start Date: 06/15/17 Encounter Start Time: 07:40 -: old records requested/rev Patient seen and examined for SBO. No new complaints. Noted overnight events - Objective Resuscitation Status: Resuscitation Status FULL:Full Resuscitation MAR Reviewed: Yes Vital Signs & Weight: Vital Signs (12 hours) Temp Pulse Resp BP Pulse Ox 06/15/17 11:48 97.8 F 63 16 161/78 H 98 06/15/17 07:30 97.6 F 63 15 148/77 H 96 06/15/17 07:19 98.2 F 68 18 96 06/15/17 04:39 98.2 F 68 18 169/85 H 96 06/15/17 00:12 97.9 F 67 16 158/74 H 95 Weight Weight 164 lb 14.492 oz I&O: 06/14/17 06/15/17 06/16/17 06:59 06:59 06:59 Output Total 825 Balance -825 Result Diagrams: 06/15/17 03:07 06/15/17 03:07 Radiology Reviewed by me: Yes (small bowel xray, xray abdomen) Phys Exam - Physical Examination Constitutional: NAD HEENT: PERRLA, moist MMs, sclera anicteric Neck: no JVD, supple Respiratory: no wheezing, no rales, no rhonchi Cardiovascular: RRR, no significant murmur, no rub Gastrointestinal: soft, non-tender, no distention, positive bowel sounds Musculoskeletal: no edema, pulses present Neurological: non-focal, normal sensation, moves all 4 limbs Lymphatic: no nodes Psychiatric: normal affect, A&O x 3 Skin: no rash, normal turgor Dx/Plan (1) Acute kidney injury Code(s): N17.9 - ACUTE KIDNEY FAILURE, UNSPECIFIED Status: Resolved (2) SBO (small bowel obstruction) Code(s): K56.609 - UNSP INTESTNL OBST, UNSP TO PARTIAL VERSUS COMPLETE OBST Status: Resolved (3) Atrial fibrillation Code(s): I48.91 - UNSPECIFIED ATRIAL FIBRILLATION Status: Chronic Qualifiers: Atrial fibrillation type: chronic Qualified Code(s): I48.2 - Chronic atrial fibrillation (4) CAD (coronary artery disease) Code(s): I25.10 - ATHSCL HEART DISEASE OF [place] CORONARY ARTERY W/O ANG PCTRS Status: Chronic Qualifiers: (5) Chronic diastolic CHF (congestive heart failure) Code(s): I50.32 - CHRONIC DIASTOLIC (CONGESTIVE) HEART FAILURE Status: Chronic Comment: (6) H/O aortic valve replacement with porcine valve Code(s): Z98.890 - OTHER SPECIFIED POSTPROCEDURAL STATES; Z95.3 - PRESENCE OF XENOGENIC HEART VALVE Status: Chronic (7) Hiatal hernia Code(s): K44.9 - DIAPHRAGMATIC HERNIA WITHOUT OBSTRUCTION OR GANGRENE Status: Chronic (8) Hypertension Code(s): I10 - ESSENTIAL (PRIMARY) HYPERTENSION Status: Chronic Qualifiers: (9) Macrocytic anemia Code(s): D53.9 - NUTRITIONAL ANEMIA, UNSPECIFIED Status: Chronic (10) Pacemaker Code(s): Z95.0 - PRESENCE OF CARDIAC PACEMAKER Status: Chronic - Plan cont current plan of care * Dc Lovenox * restart her home medication * NG tube discontinued and started on clear liquid diet * today will advance diet to see how she tolerated * possible discharge tomorrow * medication reviewed as below * symptomatic treatment. Review of Systems - Review of Systems Constitutional: negative: fever, chills, sweats, weakness, malaise, other ENT: negative: Ear Pain, Ear Discharge, Nose Pain, Nose Discharge, Nose Congestion, Mouth Pain, Mouth Swelling, Throat Pain, Throat Swelling, Other Respiratory: negative: Cough, Dry, Shortness of Breath, Hemoptysis, SOB with Excertion, Pleuritic Pain, Sputum, Wheezing Cardiovascular: negative: chest pain, palpitations, orthopnea, paroxysmal nocturnal dyspnea, edema, light headedness, other Gastrointestinal: negative: Nausea, Vomiting, Abdominal Pain, Diarrhea, Constipation, Melena, Hematochezia, Other Genitourinary: negative: Dysuria, Frequency, Incontinence, Hematuria, Retention , Other Musculoskeletal: negative: Neck Pain, Shoulder Pain, Arm Pain, Back Pain, Hand Pain, Leg Pain, Foot Pain, Other Skin: negative: Rash, Lesions, Biju, Bruising, Other - Medications/Allergies Allergies/Adverse Reactions: Allergies Allergy/AdvReac Type Severity Reaction Status Date / Time amoxicillin Allergy Verified 04/05/17 13:21 Penicillins Allergy Verified 04/05/17 13:21 Medications: Current Medications Acetaminophen (Tylenol) 650 mg DC Q4H PRN PRN Reason: Headache/Fever or Pain Albuterol/Ipratropium (Duoneb) 3 ml NEB [id number] PRN PRN Reason: SOB &/or Wheezing Artificial Tears (Tears Naturale) 0 drop EA EYE PRN PRN PRN Reason: Dry Eyes Enoxaparin Sodium (Lovenox) 40 mg SC 0900 [facility] Last Admin: 06/15/17 10:30 Dose: 40 mg Hydralazine HCl (Apresoline) 10 mg SLOW IVP Q4H PRN PRN Reason: Systolic BP > 180 Dextrose/Sodium Chloride (D5 0.9% Ns) 1,000 mls @ 125 mls/hr IV .Q8H [facility] Last Admin: 06/15/17 06:30 Dose: 1,000 mls Mineral Oil/White Petrolatum (Eucerin Cream) 0 gm TOP BIDPRN PRN PRN Reason: Dry Skin Morphine Sulfate (Morphine) 2 mg IV Q4H PRN PRN Reason: Pain Ondansetron HCl (Zofran Odt) 4 mg SL Q6H PRN PRN Reason: Nausea/Vomiting Ondansetron HCl (Zofran) 4 mg IVP Q6H PRN PRN Reason: Nausea/Vomiting Phenol (Chloraseptic [place] 180 Ml Bot) 0 ml PO PRN PRN PRN Reason: Sore Throat Sodium Chloride ([place] Nasal [place] 0.65%) 0 ml EA NARE QIDPRN PRN PRN Reason: Nasal Congestion Sodium Chloride (Flush - Normal Saline) 10 ml IVF Q12HR [facility] Last Admin: 06/15/17 10:30 Dose: Not Given Sodium Chloride (Flush - Normal Saline) 10 ml IVF PRN PRN PRN Reason: Saline Flush
[2017-06-15 13:08] VITALS: BMI 26.6
[2017-06-15] MEDS: Dronedarone HCl 400 MG TAB PO SCH (17:00)
[2017-06-15] MEDS ORDERED: Warfarin Sodium 3 MG TAB PO SCH (17:00)
[2017-06-15] MEDS ORDERED: MD-Gastroview 120 ML BOT ONE (20:24)
[2017-06-15] MEDS ORDERED: Simvastatin 20 MG TAB PO SCH (21:00)
[2017-06-16] MEDS: Dronedarone HCl 400 MG TAB PO SCH (08:48)
[2017-06-16] MEDS ORDERED: Ascorbic Acid 500 mg Chewable Tablet PO SCH (09:00)
[2017-06-16] MEDS ORDERED: Amlodipine 5 MG TAB PO SCH (09:00)
[2017-06-16] MEDS ORDERED: Aspirin 81 mg Enteric Coated Tablet PO SCH (09:00)
[2017-06-16] MEDS ORDERED: Fish Oil 1,000 MG CAP PO SCH (09:00)
[2017-06-16] MEDS ORDERED: Multivit, Therapeutic 1 TAB PO SCH (09:00)
[2017-06-16] MEDS ORDERED: lamoTRIgine 100 MG TAB PO SCH (09:00)
[2017-06-16] MEDS ORDERED: Calcium Carbonate + Vit D 1 TAB PO SCH (09:00)
[2017-06-16] MEDS ORDERED: Furosemide 20 MG TAB PO SCH (09:00)
[2017-06-16 09:20] VITALS: TEMP 97.5
--- NOTE | 2017-06-16 09:54 | PDOC.PN ---
- Subjective Encounter Start Date: 06/16/17 Encounter Start Time: 07:40 Patient seen and examined. No new complaints. No overnight events - Objective Resuscitation Status: Resuscitation Status FULL:Full Resuscitation MAR Reviewed: Yes Vital Signs & Weight: Vital Signs (12 hours) Temp Pulse Resp BP BP BP Pulse Ox 06/16/17 08:50 97.5 F L 65 16 98 06/16/17 08:48 65 110/67 06/16/17 07:33 97.8 F 65 16 110/67 98 06/16/17 04:10 93 L 06/16/17 04:00 98.6 F 61 16 132/60 95 06/16/17 00:51 98.6 F 62 15 114/65 93 L Weight Admit Weight 164 lb 14.48 oz Weight 164 lb 14.48 oz I&O: 06/15/17 06/16/17 06/17/17 06:59 06:59 06:59 Intake Total 1500 1989 Output Total 825 Balance -825 1500 1989 Result Diagrams: 06/15/17 03:07 06/15/17 03:07 Phys Exam - Physical Examination Constitutional: NAD HEENT: PERRLA, moist MMs, sclera anicteric, oral pharynx no lesions Neck: no nodes, no JVD, supple, full ROM Respiratory: no wheezing, no rales, no rhonchi Cardiovascular: RRR, no significant murmur, no rub Gastrointestinal: soft, non-tender, no distention, positive bowel sounds Musculoskeletal: no edema, pulses present Neurological: non-focal, normal sensation, moves all 4 limbs Lymphatic: no nodes Psychiatric: normal affect, A&O x 3 Skin: no rash, normal turgor Dx/Plan (1) Acute kidney injury Code(s): N17.9 - ACUTE KIDNEY FAILURE, UNSPECIFIED Status: Resolved (2) SBO (small bowel obstruction) Code(s): K56.609 - UNSP INTESTNL OBST, UNSP TO PARTIAL VERSUS COMPLETE OBST Status: Resolved (3) Atrial fibrillation Code(s): I48.91 - UNSPECIFIED ATRIAL FIBRILLATION Status: Chronic Qualifiers: Atrial fibrillation type: chronic Qualified Code(s): I48.2 - Chronic atrial fibrillation (4) CAD (coronary artery disease) Code(s): I25.10 - ATHSCL HEART DISEASE OF CIRCLE CORONARY ARTERY W/O ANG PCTRS Status: Chronic Qualifiers: (5) Chronic diastolic CHF (congestive heart failure) Code(s): I50.32 - CHRONIC DIASTOLIC (CONGESTIVE) HEART FAILURE Status: Chronic Comment: (6) H/O aortic valve replacement with porcine valve Code(s): Z98.890 - OTHER SPECIFIED POSTPROCEDURAL STATES; Z95.3 - PRESENCE OF XENOGENIC HEART VALVE Status: Chronic (7) Hiatal hernia Code(s): K44.9 - DIAPHRAGMATIC HERNIA WITHOUT OBSTRUCTION OR GANGRENE Status: Chronic (8) Hypertension Code(s): I10 - ESSENTIAL (PRIMARY) HYPERTENSION Status: Chronic Qualifiers: (9) Macrocytic anemia Code(s): D53.9 - NUTRITIONAL ANEMIA, UNSPECIFIED Status: Chronic (10) Pacemaker Code(s): Z95.0 - PRESENCE OF CARDIAC PACEMAKER Status: Chronic - Plan cont current plan of care * medication reviewed as below * symptomatic treatment * advance diet * will discharge later today. Review of Systems - Review of Systems Constitutional: negative: fever, chills, sweats, weakness, malaise, other Eyes: negative: Pain, Vision Change, Conjunctivae Inflammation, Eyelid Inflammation, Redness, Other ENT: negative: Ear Pain, Ear Discharge, Nose Pain, Nose Discharge, Nose Congestion, Mouth Pain, Mouth Swelling, Throat Pain, Throat Swelling, Other Respiratory: negative: Cough, Dry, Shortness of Breath, Hemoptysis, SOB with Excertion, Pleuritic Pain, Sputum, Wheezing Cardiovascular: negative: chest pain, palpitations, orthopnea, paroxysmal nocturnal dyspnea, edema, light headedness, other Gastrointestinal: negative: Nausea, Vomiting, Abdominal Pain, Diarrhea, Constipation, Melena, Hematochezia, Other Genitourinary: negative: Dysuria, Frequency, Incontinence, Hematuria, Retention , Other Musculoskeletal: negative: Neck Pain, Shoulder Pain, Arm Pain, Back Pain, Hand Pain, Leg Pain, Foot Pain, Other Skin: negative: Rash, Lesions, Biju, Bruising, Other - Medications/Allergies Allergies/Adverse Reactions: Allergies Allergy/AdvReac Type Severity Reaction Status Date / Time amoxicillin Allergy Verified 04/05/17 13:21 Penicillins Allergy Verified 04/05/17 13:21 Medications: Current Medications Acetaminophen (Tylenol) 650 mg MT Q4H PRN PRN Reason: Headache/Fever or Pain Albuterol/Ipratropium (Duoneb) 3 ml NEB [id number] PRN PRN Reason: SOB &/or Wheezing Amlodipine Besylate (Norvasc) 2.5 mg PO DAILY [facility] Last Admin: 06/16/17 08:48 Dose: 2.5 mg Artificial Tears (Tears Naturale) 0 drop EA EYE PRN PRN PRN Reason: Dry Eyes Ascorbic Acid (Vitamin C) 500 mg PO DAILY [facility] Last Admin: 06/16/17 08:49 Dose: 500 mg Aspirin (Ecotrin) 81 mg PO DAILY [facility] Last Admin: 06/16/17 08:49 Dose: 81 mg Calcium/Vitamin D (Caltrate 600 + Vit D) 1 tab PO DAILY [facility] Last Admin: 06/16/17 08:48 Dose: 1 tab Dronedarone (Multaq) 400 mg PO BID-[facility] Last Admin: 06/16/17 08:48 Dose: 400 mg Fish Oil (Fish Oil) 1,000 mg PO DAILY [facility] Last Admin: 06/16/17 08:49 Dose: 1,000 mg Furosemide (Lasix) 20 mg PO DAILY [facility] Last Admin: 06/16/17 08:48 Dose: 20 mg Hydralazine HCl (Apresoline) 10 mg SLOW IVP Q4H PRN PRN Reason: Systolic BP > 180 Lamotrigine (Lamictal) 100 mg PO DAILY [facility] Last Admin: 06/16/17 08:48 Dose: 100 mg Metoprolol Succinate (Toprol Xl) 200 mg PO DAILY [facility] Last Admin: 06/16/17 08:49 Dose: 200 mg Mineral Oil/White Petrolatum (Eucerin Cream) 0 gm TOP BIDPRN PRN PRN Reason: Dry Skin Morphine Sulfate (Morphine) 2 mg IV Q4H PRN PRN Reason: Pain Multivitamins (Theragran) 1 tab PO DAILY [facility] Last Admin: 06/16/17 08:48 Dose: 1 tab Ondansetron HCl (Zofran Odt) 4 mg SL Q6H PRN PRN Reason: Nausea/Vomiting Ondansetron HCl (Zofran) 4 mg IVP Q6H PRN PRN Reason: Nausea/Vomiting Phenol (Chloraseptic [place] 180 Ml Bot) 0 ml PO PRN PRN PRN Reason: Sore Throat Simvastatin (Zocor) 20 mg PO HS [facility] Last Admin: 06/15/17 21:24 Dose: 20 mg Sodium Chloride ([place] Nasal [place] 0.65%) 0 ml EA NARE QIDPRN PRN PRN Reason: Nasal Congestion Sodium Chloride (Flush - Normal Saline) 10 ml IVF Q12HR [facility] Last Admin: 06/16/17 08:52 Dose: 10 ml Sodium Chloride (Flush - Normal Saline) 10 ml IVF PRN PRN PRN Reason: Saline Flush Warfarin Sodium (Coumadin) 6 mg PO 1700 [facility] Last Admin: 06/15/17 17:01 Dose: 6 mg
--- NOTE | 2017-06-16 11:05 | DIS ---
PRIMARY CARE PHYSICIAN: Dr. Alberto Roberts. DATE OF ADMISSION: 06/14/2017 DATE OF DISCHARGE: 06/16/2017 DISCHARGE DISPOSITION: Home. PRIMARY DISCHARGE DIAGNOSES: 1. Small-bowel obstruction, improved. 2. Acute kidney injury, improved. SECONDARY DISCHARGE DIAGNOSES: Chronic atrial fibrillation, coronary artery disease, chronic diastol ic heart failure, history of aortic valve replacement with porcine valve, moderate hiatal hernia, hyp ertension, macrocytic anemia, and history of pacemaker. PRIMARY PROCEDURE/OPERATION: None. RADIOLOGICAL INVESTIGATION: Abdomen and pelvis CT scan showed findings suggestive of small-bowel obs truction with transition point in the left hemipelvis. Chest x-ray was unremarkable. Abdomen x-ray and small bowel x-ray showed resolution of small-bowel obstruction. SIGNIFICANT LABORATORY DATA: WBC 4.4, hemoglobin 11.6, platelet 116. INR 1.7. Sodium 139, creatini ne 0.82. LFT normal. Cardiac enzymes negative. Lipase 24. Urinalysis unremarkable. Urine culture negative. DISCHARGE MEDICATIONS: The patient will continue all her previous medication. Amlodipine 2.5 mg p.o . daily, vitamin C 500 mg p.o. daily, aspirin 81 mg p.o. daily, calcium with vitamin D 1 tablet p.o. daily, Multaq 400 mg p.o. b.i.d., fish oil 1000 mg p.o. daily, Lasix 20 mg p.o. daily, lamotrigine 10 0 mg p.o. daily, Toprol-XL 200 mg p.o. daily, multivitamin 1 tablet p.o. daily, omeprazole 20 mg p.o. daily, Zocor 20 mg p.o. at bedtime, and warfarin 6 mg p.o. daily. CONTRAINDICATIONS: None. CODE STATUS: FULL CODE. INPATIENT CONSULTANTS: Dr. Villalba was following while in hospital. TEST RESULTS PENDING ON DISCHARGE: None. ALLERGIES: AMOXICILLIN and PENICILLIN. DISCHARGE PLAN: Post hospital, the patient will follow up with Dr. Villalba and Dr. Alberto Roberts as in structed. HOSPITAL COURSE: An 87-year-old female, who was admitted by me. Please see my HPI for further detai ls. The patient was admitted on 06/14/2017. The patient had nausea, vomiting, abdominal pain. The patient was found with a small-bowel obstruction based on CT of the abdomen and pelvis. Subsequently , the patient was admitted to surgical floor under [facility]. We consulted Dr. Villalba, [facility]. The patient was treated conservatively with NG tube with low intermittent suction. The patie nt was given IV fluid. The patient also clinically appeared dehydrated and with IV fluid, her renal function improved to normal. Subsequently, the patient had a repeat abdomen x-ray as well as small bowel x-ray, which showed resol ution of small-bowel obstruction with conservative therapy. After that, we started clear liquid and diet was advanced. This patient does not have anymore complaints. She is doing very well. On disch arge, we continued all her previous medication. Dietary education was given. The patient is seen and examined at bedside today. Please see my progress note from today for furthe r detail.
[2017-06-16 11:37] VITALS: BP 151/72
== END 2017-06-16 15:04 | disposition home or self-care (01) | DRG 389 ==
LOC: ERS 23:44 → SURG A 06-14 03:20
PROVIDERS: ADMIT Internal Medicine; ATTEND Internal Medicine
DX: K56.609 Unspecified intestinal obstruction, unspecified as to partial versus complete obstruction (principal); N17.9 Acute kidney failure, unspecified; I50.32 Chronic diastolic (congestive) heart failure; I13.0 Hypertensive heart and chronic kidney disease with heart failure and stage 1 through stage 4 chronic kidney disease, or unspecified chronic kidney disease; I48.2 Chronic atrial fibrillation; I25.10 Atherosclerotic heart disease of native coronary artery without angina pectoris; Z95.4 Presence of other heart-valve replacement; K44.9 Diaphragmatic hernia without obstruction or gangrene; I11.0 Hypertensive heart disease with heart failure; D64.9 Anemia, unspecified; Z95.0 Presence of cardiac pacemaker; E86.0 Dehydration; Z88.0 Allergy status to penicillin; Z79.899 Other long term (current) drug therapy; Z79.82 Long term (current) use of aspirin; Z79.01 Long term (current) use of anticoagulants; E78.5 Hyperlipidemia, unspecified; N18.3 Chronic kidney disease, stage 3 (moderate); Z95.1 Presence of aortocoronary bypass graft
CPT/HCPCS: 36415; 43752; 71045; 74018; 74176; 74250; 80048; 80053; 81003; 81015; 82550; 82553; 83690; 83735; 84100; 84484; 85025; 85610; 85730; 87086; 93005; 96361; 96374; J1650; J2270; Q0162

== ENCOUNTER 2017-09-05 12:35 | Emergency (ER) | payer MEDICARE ==
--- NOTE | 2017-09-05 14:21 | RAD ---
ABDOMEN 2 VIEWS WITH 1 VIEW CHEST XRAY: HISTORY: Abdominal pain and constipation. COMPARISON: Abdomen radiograph 06/15/17. FINDINGS: Moderate-sized sliding hiatal hernia. No dilated loops of large or small bowel. No free air under t he hemidiaphragms. Mild gaseous distention of the small bowel similar to the comparison examination. Dual-lead pacer is present. No acute osseous abnormality. Moderate reverse S-shaped scoliosis. On upright view, there do appear to be a few air fluid levels in the pelvis. IMPRESSION: 1. No acute intrathoracic abnormality. 2. Some very few air fluid levels in the abdomen can be seen with ileus versus early obstruction. 3. Moderate-sized sliding hiatal hernia. POS: [facility]
[2017-09-05] MEDS ORDERED: Fleet Enema 133 ML BOT FS ONE (15:00)
== END 2017-09-05 17:15 | disposition home or self-care (01) ==
LOC: ERS 12:35
DX: K59.00 Constipation, unspecified (principal); R10.9 Unspecified abdominal pain; E78.5 Hyperlipidemia, unspecified; I25.10 Atherosclerotic heart disease of native coronary artery without angina pectoris; I10 Essential (primary) hypertension; Z79.01 Long term (current) use of anticoagulants; Z79.899 Other long term (current) drug therapy
CPT/HCPCS: 74022

== ENCOUNTER 2017-10-26 08:54 | Day surgery (SDC) | payer MEDICARE ==
[2017-10-25 10:11] VITALS: BMI 25.0
[2017-10-26 09:20] LABS: #Basophils 0.1 thou/uL (0.0-0.2); #Eosinphils 0.4 thou/uL (0.0-0.7); #Lymphocytes 1.8 thou/uL (1.20-3.40); #Monocytes 0.5 thou/uL (0.11-0.59); #Neutrophils 3.3 thou/uL (1.40-6.50); %Eosinophils 6.9 % (0.0-10.0); %Lymphocytes 30.2 % (21.0-51.0); %Monocytes 8.1 % (0.0-10.0); %Neutrophils 53.8 % (42.0-75.0); Hemoglobin 14.3 g/dL (12.0-16.0); Mean Corpuscular HGB CONC 32.6 g/dL (32.0-36.0); Mean Corpuscular Hemoglobin 33.5 pg (27.0-31.0); Mean Platelet Volume 8.1 fL (7.4-10.4); Platelet Count 159 thou/uL (130-400); RBC Distribution Width 12.2 % (11.5-14.5); Red Blood Cell (RBC) Count 4.27 mill/uL (4.20-5.40); White Blood Cell (WBC) Count 6.1 thou/uL (4.8-10.8)
[2017-10-26 09:41] LABS: ALT (SGPT) 15 U/L (8-55); AST (SGOT) 23 U/L (5-34); Alkaline Phosphatase 65 U/L (40-150); Anion Gap 10 mmol/L (10-20); BUN (Urea Nitrogen) 11 mg/dL (9.8-20.1); Bilirubin, Total 0.9 mg/dL (0.2-1.2); Calc. Creatinine Clearance 47 mL/min (70-130); Calcium 9.6 mg/dL (7.8-10.44); Carbon Dioxide 30 mmol/L (23-31); Chloride 103 mmol/L (98-107); Estimated GFR-MDRD 54; Globulin 3.2 g/dL (2.4-3.5); Glucose 99 mg/dL (83-110); Potassium 4.3 mmol/L (3.5-5.1); Protein, Total 7.2 g/dL (6.0-8.3); Sodium 139 mmol/L (136-145)
[2017-10-26] MEDS ORDERED: PROPOFOL 200 MG/20 ML VIAL ONE (09:47)
[2017-10-26] MEDS ORDERED: ePHEDrine/0.9% NaCl/PF SYRINGE 50 mg/10 ml ONE (09:47)
[2017-10-26] MEDS ORDERED: Ketorolac Tromethamine 30 MG/ML VIAL ONE (09:47)
[2017-10-26] MEDS ORDERED: Lidocaine 1% PF 5 ML VIAL ONE (09:47)
[2017-10-26] MEDS ORDERED: Ondansetron HCl/PF 4 MG/2 ML Vial ONE (09:47)
[2017-10-26] MEDS ORDERED: Bupivacaine/Epinephrine 0.25% 30 ML VIAL ONE (09:51)
[2017-10-26] MEDS ORDERED: Levofloxacin 500 mg/D5W 100 ml Premix Bag ONE (09:53)
[2017-10-26] MEDS ORDERED: Famotidine/PF 20 mg/2ml Vial ONE (09:58)
[2017-10-26] MEDS ORDERED: Fentanyl 100 MCG/2 ML VIAL ONE (09:58)
--- NOTE | 2017-10-26 12:55 | OP ---
DATE OF PROCEDURE: 10/26/2017 PREOPERATIVE DIAGNOSIS: Left femoral hernia. SURGEON: Fer Villalba M.D. PROCEDURE PERFORMED: Left femoral hernia repair with mesh. INDICATIONS: This is an 87-year-old female with a painful bulge in her left lower groin found to hav e a femoral hernia. FINDINGS: The actual defect was about a centimeter. There was about 6 centimeters of tissue in a he rnia sac. PROCEDURE: After informed consent was obtained, the patient was taken to the operating room and give n general mask anesthesia, placed in the supine position. Her groin was prepped and draped in usual fashion. Local anesthesia infiltrated subcutaneously and deep. A transverse left groin incision was performed. The subcu divided sharply. The hernia sac was dissected from surrounding subcutaneous t issue circumferentially down to the femoral canal. Then the sac was removed and its contents were re duced. Reduction was maintained utilizing a large plug which was placed in the canal and sutured cir cumferentially with a 2-0 Prolene suture. Hemostasis assured and the subcutaneous reapproximated wit h interrupted 3-0 Vicryl. Skin closed with a running subcuticular 4-0 Rapide. Steri-Strips applied. Sterile bandage applied. The patient tolerated the procedure well and was transferred to recovery in good condition. Sponge and needle count verified correct x2.
--- NOTE | 2017-10-29 10:08 | EKG ---
Test Reason : PREOP Blood Pressure : / mmHG Vent. Rate : 061 BPM Atrial Rate : 061 BPM P-R Int : 198 ms QRS Dur : 118 ms QT Int : 442 ms P-R-T Axes : 043 046 015 degrees QTc Int : 444 ms Electronic atrial pacemaker Non-specific intra-ventricular conduction delay Borderline ECG When compared with ECG of 14-JUN-2017 00:15, No significant change was found Confirmed by DR. Carlee SIMENTAL ([id number]) on 10/29/2017 10:08:15 AM Referred By: HEATHER Confirmed By:DR. Carlee SIMENTAL
== END 2017-10-26 12:37 | disposition home or self-care (01) ==
LOC: SDC 08:54
PROVIDERS: ATTEND Surgery
PROC: 0YU80JZ Supplement Left Femoral Region with Synthetic Substitute, Open Approach (ICD-10-PCS; principal; 2017-10-26)
DX: K41.90 Unilateral femoral hernia, without obstruction or gangrene, not specified as recurrent (principal); I10 Essential (primary) hypertension; K21.9 Gastro-esophageal reflux disease without esophagitis; Z79.01 Long term (current) use of anticoagulants; Z79.82 Long term (current) use of aspirin; Z79.899 Other long term (current) drug therapy; Z88.0 Allergy status to penicillin; Z95.0 Presence of cardiac pacemaker; Z95.2 Presence of prosthetic heart valve
CPT/HCPCS: 49550; 80053; 85025; 93005; C1781; 36415; 93010; J0131; J1885; J1956; J2001; J2405; J2704; J3010; S0028

== ENCOUNTER 2019-08-01 19:04 | Inpatient (IN) | payer MEDICARE ==
--- NOTE | 2019-08-01 20:09 | RAD ---
TWO VIEWS LEFT FEMUR: 08/01/19 PROVIDED CLINICAL HISTORY: Pain. FINDINGS: Mildly displaced fracture of the left femoral neck is demonstrated with associated coxa valga. No add itional fracture is evident. The left hip joint space appears preserved. IMPRESSION: Left femoral neck fracture. POS: [facility]
[2019-08-01] MEDS ORDERED: Fentanyl 100 MCG/2 ML VIAL ONE (20:13)
[2019-08-01] MEDS ORDERED: Ondansetron PF 4 MG/2 ML Vial ONE ×2 (20:13→21:05)
--- NOTE | 2019-08-01 20:13 | RAD ---
PELVIC RADIOGRAPHS 08/01/19 PROVIDED CLINICAL HISTORY: Pain, status post injury. FINDINGS: There is a mildly displaced fracture involving the left femoral neck with associated coxa valga. No a dditional fracture is evident. Hip joint spaces appear maintained. Lumbar spine degenerative changes are partially visualized. IMPRESSION: Left femoral neck fracture. POS: [facility]
[2019-08-01 20:33] LABS: #Eosinphils 0.1 thou/uL (0.0-0.7); #Lymphocytes 1.4 thou/uL (1.20-3.40); #Monocytes 0.6 thou/uL (0.11-0.59); %Eosinophils 0.9 % (0.0-10.0); %Lymphocytes 13.7 % (21.0-51.0); %Monocytes 5.7 % (0.0-10.0); %Neutrophils 79.7 % (42.0-75.0); Hemoglobin 12.2 g/dL (12.0-16.0); Mean Corpuscular HGB CONC 34.2 g/dL (32.0-36.0); Mean Corpuscular Hemoglobin 34.7 pg (27.0-31.0); Mean Platelet Volume 8.7 fL (7.4-10.4); Platelet Count 136 thou/uL (130-400); Red Blood Cell (RBC) Count 3.52 mill/uL (4.20-5.40)
--- NOTE | 2019-08-01 20:46 | RAD ---
PORTABLE CHEST: 08/01/19 PROVIDED CLINICAL HISTORY: Preop. FINDINGS: Comparison 06/14/17. Cardiac silhouette remains enlarged. Median sternotomy changes, atherosclerosis, and left subclavian cardiac pacing device are redemonstrated. No focal consolidation, pleural fluid or pneumothorax appar ent. IMPRESSION: No evidence for an acute cardiopulmonary process. POS: [facility]
[2019-08-01 20:55] LABS: ALT (SGPT) 340 U/L (8-55); AST (SGOT) 964 U/L (5-34); Albumin 3.6 g/dL (3.4-4.8); Alkaline Phosphatase 159 U/L (40-110); Anion Gap 11 mmol/L (10-20); BUN (Urea Nitrogen) 19 mg/dL (9.8-20.1); Bilirubin, Total 0.6 mg/dL (0.2-1.2); Calc. Creatinine Clearance 0 mL/min (70-130); Calcium 8.9 mg/dL (7.8-10.44); Carbon Dioxide 29 mmol/L (23-31); Chloride 100 mmol/L (98-107); Estimated GFR-MDRD 41; Globulin 2.7 g/dL (2.4-3.5); Glucose 109 mg/dL (83-110); Potassium 4.3 mmol/L (3.5-5.1); Protein, Total 6.3 g/dL (6.0-8.3); Sodium 136 mmol/L (136-145)
[2019-08-01 21:01] LABS: PTT 39.4 sec (22.9-36.1); Prothrombin Time 31.1 sec (12.0-14.7)
[2019-08-01 21:02] LABS: Magnesium 1.9 mg/dL (1.6-2.6); Phosphorus 3.6 mg/dL (2.3-4.7)
[2019-08-01] MEDS ORDERED: Morphine 2 MG/ML SYRINGE SLOW IVP PRN (21:02)
[2019-08-01] MEDS ORDERED: Ondansetron PF 4 MG/2 ML Vial IVP PRN (21:02)
[2019-08-01] MEDS ORDERED: Dextrose 50% Abboject 50 ML SYRINGE SLOW IVP PRN (21:02)
[2019-08-01] MEDS ORDERED: TETANUS AND DIPHTHERIA TOX/PF 0.5 ML DISP.SYRIN IM ONE (21:02)
[2019-08-01] MEDS ORDERED: Dextrose 5% in Water 1,000 ML IV PRN (21:02)
[2019-08-01] MEDS ORDERED: Promethazine HCl 25 MG/ML VIAL IM PRN (21:02)
[2019-08-01] MEDS ORDERED: hydrALAZINE 20 MG/ML VIAL SLOW IVP PRN (21:02)
[2019-08-01 21:03] LABS: Bilirubin Negative (Negative); Blood, Urine Negative (Negative); Clarity Clear (Clear); Glucose, Urine (Dipstick) Normal (Negative); Leukocyte Negative Leu/uL (Negative); Nitrite Negative (Negative); Protein, Urine (Dipstick) Negative (Neg-Trace); Urobilinogen Normal mg/dL (Less than 2)
[2019-08-01] MEDS ORDERED: Acetaminophen/Codeine 30-300mg Tablet ONE (21:05)
[2019-08-01] MEDS ORDERED: Cyclobenzaprine 10 MG TAB PO PRN (21:07)
[2019-08-01] MEDS ORDERED: Promethazine HCl 25 MG/ML VIAL ONE (21:27)
[2019-08-01] MEDS ORDERED: Magnesium 2 GM/50 ML 2 GM in Premix Bag 1 BAG IVPB SCH (22:30)
[2019-08-01 22:59] VITALS: BMI 26.6
[2019-08-01] MEDS: Acetaminophen 325 MG TAB PO SCH (23:13)
[2019-08-02 00:39] LABS: Bacteria/HPF None Seen HPF (None Seen); Bilirubin Negative (Negative); Blood, Urine 2+ (Negative); Clarity Extra Turbid (Clear); Glucose, Urine (Dipstick) Normal (Negative); Leukocyte Negative Leu/uL (Negative); Nitrite Negative (Negative); Protein, Urine (Dipstick) 200 mg/dL (Neg-Trace); RBC/HPF 0-3 HPF (0-3); Squamous Epithelial None Seen HPF (0-3); Urobilinogen Normal mg/dL (Less than 2)
--- NOTE | 2019-08-02 01:49 | HP ---
REQUESTING PHYSICIAN: Dr. Felder. CONSULTS: Orthopedic Surgery, Dr. Melvin. CHIEF COMPLAINT: Mechanical fall, left hip; left hip pain. HISTORY OF PRESENT ILLNESS: This is an 89-year-old female with a significant past medical history including coronary artery disease, coronary artery bypass graft, hypertension, chronic kidney disease, bovine valve replacement, pacemaker placement, atrial fibrillation, seizure disorder, and on chronic anticoagulation. The patient reports that she was sweeping her porch, standing on the very bottom step when she tripped causing her to fall, landing on her left side. The patient denies any loss of consciousness and denies hitting her head. The patient states she landed into soft dirt. The patient also reported a skin tear to her left elbow. The patient was evaluated in the emergency room and was found to have a left femoral neck fracture. The patient has been n.p.o. since approximately 3 p.m. today. The patient was given fentanyl 25 mcg and Zofran 4 mg IV in the emergency room. The patient's pain is currently controlled. The patient denies any chest pain, shortness of breath, and/or dizziness prior to tripping and falling. The patient denies any recent cough, cold, fever, or illness recently. The patient states she is able to walk approximately 1000 steps before getting short of breath. The patient's last echocardiogram was obtained in February of 2017, showing an estimated ejection fraction of 60% to 65% and some diastolic dysfunction. REVIEW OF SYSTEMS: A 10-point review of systems is negative unless otherwise indicated in the above HPI. ALLERGIES: PENICILLIN. MEDICATIONS: The patient's home medications include, 1. Simvastatin 20 mg daily. 2. Warfarin 6 mg once a day. 3. Aspirin 81 mg daily. 4. Fish oil 1000 mg daily. 5. Calcium 500+D daily. 6. Lasix 20 mg once a day. 7. Glucosamine 1500 mg daily. 8. Colace 100 mg one cap b.i.d. PAST MEDICAL HISTORY: Hypertension, coronary artery disease, chronic kidney disease stage 3, generalized seizure disorder, dyslipidemia, hiatal hernia, paroxysmal atrial fibrillation, and history of pacemaker. PAST SURGICAL HISTORY: Pacemaker, hysterectomy, appendectomy, coronary artery bypass graft, valve replacement with Bovine valve, cholecystectomy in 2018, left inguinal hernia repair x2, and hiatal hernia. SOCIAL HISTORY: The patient lives at home alone. Denies any tobacco use. Denies alcohol or illicit drug use. PHYSICAL EXAMINATION: VITAL SIGNS: Blood pressure 106/54, pulse 61, SpO2 of 94% on room air, temperature 98.3, and respirations 18. GENERAL: Well-appearing elderly female, awake, alert, in no distress. HEENT: Head is atraumatic and normocephalic. Pupils are equal bilateral. Mucous membranes are moist. Midface, stable. NECK: No cervical spine tenderness. Trachea midline. No jugular vein distention. No carotid bruits. RESPIRATORY: Equal chest rise and fall, bilateral breath sounds clear. HEART: Pacemaker in left upper chest, atrial paced rhythm, systolic murmur present. ABDOMEN: Soft, nontender, and nondistended. PELVIS: Stable, tenderness to the left hip. BACK: Unremarkable. EXTREMITIES: Moves all extremities. Distal pulses 2+ and neurovascularly intact in all extremities. Small skin tear to the left elbow, covered with bandage. NEUROLOGIC: No focal deficits. GCS 15. LABORATORY DATA: WBC 10.0, RBC 3.52, hemoglobin 12.2, hematocrit 35.7, platelets 136. PT 31.1, INR 3.0, APTT 39.4. Sodium 136, potassium 4.3, chloride 100, carbon dioxide 29, anion gap 11, BUN 19, creatinine 1.25, estimated GFR 41, glucose 109, calcium 8.9, phosphorus 3.6, magnesium 1.9, bilirubin 0.6. AST 964, ALT 340, alkaline phos 159, albumin 3.6. Urinalysis; negative leukocyte esterase, negative nitrite. DIAGNOSTIC DATA: 12-lead EKG, atrial paced. Left hip x-ray impression, left femoral neck fracture. Pelvis x-ray impression, left femoral neck fracture. Chest x-ray impression, no evidence for an acute cardiopulmonary process. IMPRESSION: 1. Mechanical fall, on Coumadin. 2. Left femoral neck fracture. 3. Acute traumatic pain secondary to above. 4. Chronic anticoagulation use. 5. Left elbow skin tear. 6. Transaminitis, unknown origin. 7. History of hypertension, coronary artery disease, chronic kidney disease stage 3, pacemaker, generalized seizure disorder, and hyperlipidemia. PLAN: Admit to the surgical floor. Hold Coumadin. Heart healthy diet. Pending Dr. Melvin's plan for OR. Most likely, it will be in the next 24 to 48 hours. We will obtain an echocardiogram as the patient has not had one in the last couple of years. Pain regimen. Normal saline 500 mL bolus. The patient has been n.p.o. for several hours. The patient will be bed rest, [place] catheter until postop. We will have Physical and Occupational Therapy evaluate and treat postop. We will place a rehab screen as the patient will need additional PT and OT before going back home. The plan was discussed with the attending who agrees. This plan was discussed with the patient who agrees. Job ID: [id number]
--- NOTE | 2019-08-02 02:12 | CON ---
DATE OF CONSULTATION: 08/01/2019 CHIEF COMPLAINT: Left hip pain. HISTORY OF PRESENT ILLNESS: Ms. Ventura is a pleasant 89-year-old female, who is a , who lives in the [place] area, presents after a fall. She was at home, sweeping, fell outside, able to walk inside. The patient continued to have pain , not getting better. Pain is currently rated as 5/10. She was nauseated and was brought down by ambulance, received pain medications on the way. The patient does has a history of reflux. She states she has some heartburn on a regular basis. She is complaining of left hip pain. Otherwise without complaints. Denies loss of consciousness. PAST MEDICAL HISTORY: Significant for generalized seizures, one of the most recent was three years ago, hyperlipidemia, high cholesterol, atrial fibrillation, coronary artery disease, hypertension with a history of a pacemaker, an artificial valve and a previous bypass. PAST SURGICAL HISTORY: Includes pacemaker, hysterectomy, appendectomy, coronary artery bypass graft with a bovine valve replacement. She has had an inguinal and a hiatal hernia. ALLERGIES: INCLUDE PENICILLINS, UNKNOWN REACTION. MEDICATIONS: Include; 1. Simvastatin. 2. Warfarin. 3. Aspirin. 4. Fish oil. 5. Calcium. 6. Lasix. 7. Glucosamine. 8. Colace. SOCIAL HISTORY: The patient denies alcohol/tobacco/drug use. She lives alone, son is currently with her. REVIEW OF SYSTEMS: Positive for nausea. Positive for history of reflux. The patient denies visual or auditory hallucinations, shortness of breath, chest pain, bowel or bladder changes, numbness or tingling to extremities, or current palpitation. PHYSICAL EXAMINATION: VITAL SIGNS: Blood pressure 140/78, heart rate 87, 19 respiratory rate, and temperature 98.3. Pain 5/10. A 95% on room air. GENERAL: Alert and oriented female, in no acute distress, resting comfortably in bed. EXTREMITIES: Left lower extremity externally rotated. Neurovascularly intact. Pain with internal and external rotation. SKIN: Clean, dry, and intact. LABORATORY DATA: The patient's H and H of 12 and 35 with platelet count of 136. The patient's INR is 3 and prothrombin time 31. The patient's UA was negative. The patient has a creatinine of 1.2. She has elevated liver enzymes. The patient' s x-ray show a left subcapital femoral neck fracture, valgus impaction. IMPRESSION: 1. Left subcapital femoral neck fracture. 2. Seizure disorder. 3. Hyperlipidemia. 4. Reflux. 5. Atrial fibrillation, coronary artery bypass grafting with history of bovine valve. 6.chronic kidney disease 7. hypertension. ASSESSMENT AND PLAN: The patient will be taken to the operative suite likely Sunday after correction of INR by Trauma. The patient will receive a left hip hemiarthroplasty as well as total hip replacement. I discussed the risks and benefits of both procedures. The patient was given Phenergan for nausea. I discussed risks and benefits for surgery to include pain, scar, bleeding, infection, damage to vital structures, fracture above or below the stem, continued pain despite surgical intervention, damage to vital structures, loss of life or limb. The patient understands risks and benefits of the procedure. We will likely plan on performing this on Sunday, but I feel likely take her greater than 24 hours to correct her INR. Job ID: [id number] MTDD
[2019-08-02] MEDS: Acetaminophen 325 MG TAB PO SCH ×4 (04:17→20:21)
[2019-08-02 04:30] LABS: Anion Gap 11 mmol/L (10-20); BUN (Urea Nitrogen) 18 mg/dL (9.8-20.1); Calc. Creatinine Clearance 38 mL/min (70-130); Calcium 8.5 mg/dL (7.8-10.44); Carbon Dioxide 28 mmol/L (23-31); Chloride 100 mmol/L (98-107); Estimated GFR-MDRD 43; Glucose 130 mg/dL (83-110); Magnesium 2.8 mg/dL (1.6-2.6); Potassium 4.9 mmol/L (3.5-5.1); Sodium 134 mmol/L (136-145)
[2019-08-02 05:25] LABS: Band 12 % (5-11); Eosinophils 3 % (0-10); Hemoglobin 11.5 g/dL (12.0-16.0); Lymphocytes 35 % (21-51); MDiff Complete? YES; Macrocytosis SLIGHT = 6-15 cells (100X) (0-5/hpf); Mean Corpuscular HGB CONC 33.9 g/dL (32.0-36.0); Mean Corpuscular Hemoglobin 34.5 pg (27.0-31.0); Mean Platelet Volume 8.7 fL (7.4-10.4); Monocytes 12 % (0-10); Neutrophil 38 % (42-75); Platelet Count 114 thou/uL (130-400); Platelet Morphology Comment Appears Decreased; RBC Distribution Width 12.1 % (11.5-14.5); Red Blood Cell (RBC) Count 3.33 mill/uL (4.20-5.40); White Blood Cell (WBC) Count 3.1 thou/uL (4.8-10.8)
[2019-08-02] MEDS: Senokot S 8.6-50 MG TAB PO SCH ×2 (08:22→20:20)
[2019-08-02] MEDS: Polyethylene Glycol 3350 17 GM Packet PO SCH (08:22)
[2019-08-02] MEDS: Propafenone HCl 150 MG TAB PO SCH ×3 (08:52→20:21)
[2019-08-02 09:18] LABS: INR-International Normal Ratio 2.9; Prothrombin Time 30.3 sec (12.0-14.7)
[2019-08-02] MEDS ORDERED: Phytonadione 10 MG/ML AMP PO SCH (09:45)
[2019-08-02] MEDS: Amlodipine 5 MG TAB PO SCH ×2 (10:44→20:30)
--- NOTE | 2019-08-02 13:12 | PRG ---
DATE OF SERVICE: 08/02/2019 HISTORY OF PRESENT ILLNESS: Ms. Ventura is an 89-year-old female, presents with a left hip fracture. The patient is currently resting in the hospital bed. She is comfortable. She is eating. The patient is waiting for an INR correction. PHYSICAL EXAMINATION: VITAL SIGNS: Temperature 97.7, pulse 61, respirations 12, saturation 98%, and blood pressure 116/60. GENERAL: Female, in no acute distress. EXTREMITIES: Left lower extremity clean, dry and intact, neurovascularly intact distally, no wounds. The patient is wiggling her toes. Pain with internal and external rotation of her hip. LABORATORY DATA: The patient's INR is 2.9. IMPRESSION: 1. Left hip subcapital femoral neck fracture. 2. Therapeutic INR, need for correction. ASSESSMENT AND PLAN: The patient will get her INR corrected by Trauma Service. The patient will receive left hip hemiarthroplasty. I discussed with the patient today at bedside again the total hip versus hip hemiarthroplasty. She understands the risks and benefits of both, understands that the hip hemiarthroplasty a little bit less risk for failure, but at 5 years may be converted to total hip arthroplasty. Discussed she should have to decrease her ambulatory status. I discussed the risks and benefits of surgery and she understands. She elects to proceed with left hip hemiarthroplasty. She will receive preoperative antibiotics Ancef tomorrow and she will be planned for tomorrow once her INR is corrected. Job ID: [id number]
--- NOTE | 2019-08-02 16:39 | HP ---
CHIEF COMPLAINT: Left hip fracture. HISTORY OF PRESENT ILLNESS: The patient is a very pleasant, 89-year-old, white female, who fell yesterday and presented to the hospital late last night and had imaging studies, which confirmed a femoral neck fracture of the left hip. She had a thorough history and physical examination performed by Sara Cheatham, nurse practitioner. She has already been seen by Dr. Melvin, who planned surgical repair of her hip fracture. She is anticoagulated chronically on Coumadin. Her INR on the day of admission was 3.0, and it is still 2.9 today. This will need to be normalized prior to surgery. I have reviewed the history and physical examination, performed physical examination myself, and reviewed the laboratory and imaging studies. My findings agree with those of Ms. Manningkenyon. Job ID: [id number]
--- NOTE | 2019-08-02 16:56 | PRG ---
DATE OF SERVICE: 08/02/2019 SUBJECTIVE: The patient was seen this morning, sitting up in bed with no signs of acute distress. She is pending OR tomorrow. She is receiving vitamin K today. Repeat INR at 5 p.m. Goal INR less than 2 for surgery tomorrow. OBJECTIVE: VITAL SIGNS: Temperature 97.9, pulse 61, respirations 12, oxygen saturation 98% on room air, blood pressure 116/60. GENERAL: Well-appearing elderly female, sitting up in bed, having lunch with no signs of acute distress. PULMONARY: Equal chest rise and fall. Clear breath sounds bilaterally. No signs of acute respiratory distress. CARDIAC: Regular rate and rhythm. GI: Abdomen is soft, nontender, and nondistended. EXTREMITIES: 2+ pulses in all extremities. Gross motor and sensation are intact. No significant swelling noted. NEUROLOGIC: GCS is 15. LABORATORY FINDINGS: White count 3.1, hemoglobin 11.5, hematocrit 33.8, platelets 114. INR 2.9. Sodium 134, potassium 4.9, chloride 100, bicarb 29, BUN 18, creatinine 1.19, glucose 130, phosphorus 4.0, magnesium 2.8. DIAGNOSTIC FINDINGS: Echo completed today demonstrates ejection fraction of 55% to 60%. Left atrium is severely dilated. Severe annular calcification without evidence of mitral valve stenosis. Sesa-in-sffxjfgy mitral regurgitation is present. Elevated PA pressure of 52. ASSESSMENT: 1. Status post mechanical fall from standing on Coumadin. 2. Left femoral neck fracture. 3. Left elbow skin tear. 4. History of bovine valve replacement, pacemaker, seizures, and chronic kidney disease, stage 3. PLAN: Continue heart-healthy diet. The patient has received 2.5 mg of vitamin K oral today. Repeat INR this afternoon. May give additional vitamin K depending on result. Repeat INR in the morning. Regardless, she is going to go to the OR tomorrow with Dr. Melvin for fixation. Restart home medications as clinically indicated with hold parameters. Job ID: [id number]
[2019-08-02 17:19] LABS: INR-International Normal Ratio 2.9; Prothrombin Time 30.3 sec (12.0-14.7)
[2019-08-02] MEDS ORDERED: Phytonadione 5 MG in Sodium Chloride 0.9% 50 ML IVPB SCH (17:45)
[2019-08-02] MEDS: Atorvastatin Calcium 10 MG TAB PO SCH (20:21)
[2019-08-02] MEDS: lamoTRIgine 100 MG TAB PO SCH (20:21)
[2019-08-02] MEDS: hydrALAZINE 10 MG TAB PO SCH (20:31)
[2019-08-03] MEDS ORDERED: Sodium Chloride 0.9% 1,000 ML IV SCH (01:00)
[2019-08-03 02:27] LABS: #Eosinphils 0.5 thou/uL (0.0-0.7); #Lymphocytes 1.6 thou/uL (1.20-3.40); #Monocytes 0.5 thou/uL (0.11-0.59); %Basophils 0.3 % (0.0-1.0); %Eosinophils 11.6 % (0.0-10.0); %Lymphocytes 34.6 % (21.0-51.0); %Monocytes 11.4 % (0.0-10.0); %Neutrophils 42.2 % (42.0-75.0); Hemoglobin 11.6 g/dL (12.0-16.0); INR-International Normal Ratio 1.7; Mean Corpuscular HGB CONC 33.7 g/dL (32.0-36.0); Mean Corpuscular Hemoglobin 34.7 pg (27.0-31.0); PTT 38.8 sec (22.9-36.1); Platelet Count 98 thou/uL (130-400); Prothrombin Time 20.2 sec (12.0-14.7); RBC Distribution Width 12.1 % (11.5-14.5); Red Blood Cell (RBC) Count 3.33 mill/uL (4.20-5.40); White Blood Cell (WBC) Count 4.7 thou/uL (4.8-10.8)
--- NOTE | 2019-08-03 02:45 | PRG ---
DATE OF SERVICE: 08/02/2019 SUBJECTIVE: The patient was seen during evening rounds, awake, alert, no distress, sitting up in bed. The patient is pending OR tomorrow. The patient did receive vitamin K earlier and her repeat INR was 2.9. The patient was given 1 unit of fresh frozen plasma and pending repeat INR 4 hours later. The patient's pain is well controlled at this time. The patient is n.p.o. for possible surgery tomorrow. OBJECTIVE: VITAL SIGNS: Stable, afebrile. GENERAL: Well-appearing elderly female, awake, alert, in no distress. PULMONARY: Equal chest rise and fall, no respiratory distress. PLAN: Continue n.p.o. status. If the patient's morning INR is greater than 1.7, we will give another unit of fresh frozen plasma. Normal saline 100 mL an hour, maintenance fluids x1 L. Pending final results of urine culture, no growth at 12 hours. Continue to hold the patient's Coumadin. Plan was discussed with the patient who agrees. Job ID: [id number]
[2019-08-03 03:00] LABS: Anion Gap 13 mmol/L (10-20); BUN (Urea Nitrogen) 16 mg/dL (9.8-20.1); Calc. Creatinine Clearance 44 mL/min (70-130); Calcium 8.3 mg/dL (7.8-10.44); Carbon Dioxide 26 mmol/L (23-31); Chloride 104 mmol/L (98-107); Estimated GFR-MDRD 51; Glucose 84 mg/dL (83-110); Magnesium 2.2 mg/dL (1.6-2.6); Phosphorus 2.8 mg/dL (2.3-4.7); Potassium 4.6 mmol/L (3.5-5.1); Sodium 138 mmol/L (136-145)
[2019-08-03] MEDS: Acetaminophen 325 MG TAB PO SCH ×4 (04:10→20:30)
[2019-08-03 08:06] LABS: INR-International Normal Ratio 1.5; PTT 34.5 sec (22.9-36.1); Prothrombin Time 17.8 sec (12.0-14.7)
[2019-08-03] MEDS ORDERED: Fentanyl 100 MCG/2 ML VIAL ONE ×4 (08:46→11:38)
[2019-08-03] MEDS: hydrALAZINE 10 MG TAB PO SCH ×2 (09:07→20:32)
[2019-08-03] MEDS: Amlodipine 5 MG TAB PO SCH ×2 (09:07→20:32)
[2019-08-03] MEDS: Propafenone HCl 150 MG TAB PO SCH ×3 (09:08→20:31)
[2019-08-03] MEDS: Senokot S 8.6-50 MG TAB PO SCH ×2 (09:08→20:31)
[2019-08-03] MEDS: Polyethylene Glycol 3350 17 GM Packet PO SCH (09:08)
[2019-08-03] MEDS ORDERED: Promethazine HCl 25 MG/ML VIAL IM PRN (10:26)
[2019-08-03] MEDS ORDERED: PACU-Morphine 4MG/ML VIAL SLOW IVP PRN (10:26)
[2019-08-03] MEDS ORDERED: HYDROmorphone 2 MG/ML VIAL SLOW IVP PRN (10:26)
[2019-08-03] MEDS ORDERED: Promethazine HCl 25 MG/ML VIAL SLOW IVP PRN (10:26)
[2019-08-03] MEDS ORDERED: Morphine Sulfate 2 MG/ML SYRINGE SLOW IVP PRN (10:26)
[2019-08-03] MEDS ORDERED: Ondansetron HCl/PF 4 MG/2 ML Vial IVP PRN (10:26)
[2019-08-03] MEDS ORDERED: SUGAMMADEX SODIUM 200 MG/2 ML VIAL ONE (10:30)
--- NOTE | 2019-08-03 11:12 | RAD ---
Exam: Single view of the pelvis HISTORY: Status post left hip arthroplasty for femoral neck fracture COMPARISON: 08/01/2019 FINDINGS: A single view the pelvis shows the patient is status post interval left hip arthroplasty wi thout perihardware lucency or fracture. No degenerative changes seen in the right hip. IMPRESSION: Status post left hip arthroplasty without evidence of complication.
--- NOTE | 2019-08-03 11:12 | RAD ---
EXAM: Single view of the left hip HISTORY: Postop hip arthroplasty COMPARISON: None FINDINGS: A single view of the left hip shows the patient is status post left hip arthroplasty withou t perihardware lucency or fracture. Evaluation is limited on this single view. IMPRESSION: Status post left hip arthroplasty without evidence of complication.
[2019-08-03] MEDS ORDERED: Morphine 4 MG/ML VIAL ONE (11:26)
[2019-08-03] MEDS ORDERED: Dexamethasone 20 MG/5 ML VIAL ONE (11:57)
[2019-08-03] MEDS ORDERED: Rocuronium Bromide 10 MG/ML (10ML VIAL) ONE (11:57)
[2019-08-03] MEDS ORDERED: Ondansetron PF 4 MG/2 ML Vial ONE (11:57)
[2019-08-03] MEDS ORDERED: PROPOFOL 200 MG/20 ML VIAL ONE (11:57)
[2019-08-03] MEDS ORDERED: Succinylcholine Chloride 20 MG/ML 10 ml SYRINGE FS ONE (11:57)
[2019-08-03 13:29] LABS: ALT (SGPT) 1466 U/L (8-55); AST (SGOT) 1511 U/L (5-34); Albumin 3.3 g/dL (3.4-4.8); Alkaline Phosphatase 180 U/L (40-110); Bilirubin, Direct 1.1 mg/dL (0.1-0.3); Bilirubin, Total 1.7 mg/dL (0.2-1.2)
[2019-08-03] MEDS: CEFAZOLIN 2 GM in Premix Bag 1 BAG IVPB SCH ×2 (15:50→23:49)
[2019-08-03] MEDS: Atorvastatin Calcium 10 MG TAB PO SCH (20:30)
[2019-08-03] MEDS: lamoTRIgine 100 MG TAB PO SCH (20:31)
[2019-08-03] MEDS ORDERED: Acetaminophen 500 MG TAB PO PRN (22:18)
--- NOTE | 2019-08-03 22:50 | PRG ---
DATE OF SERVICE: 08/03/2019 SUBJECTIVE: The patient is currently on the surgical floor. She is postop from open reduction and internal fixation of her left femoral neck fracture. The patient had a delay in her surgery due to being on Coumadin and waiting for her INR to become subtherapeutic, which it was this morning and she was taken to the operating room by Dr. Melvin for her procedure, which she tolerated well. Postoperatively, she was tolerating a diet. Her pain was controlled. She has not yet worked with Physical Therapy. The patient is from [place] and she discussed options as far as [place] for her recovery and rehab. PHYSICAL EXAMINATION: VITAL SIGNS: Temperature is 97.8, heart rate 63, blood pressure 103/58, respirations 16, oxygen saturation 92% on room air. GENERAL: The patient is resting comfortably in bed. She is awake, alert, conversant, and appropriate. Charlene Coma Scale is 15. HEENT: Unremarkable. LUNGS: Clear to auscultation with good inspiratory and expiratory effort. HEART: Regular rate and rhythm. ABDOMEN: Soft, flat, nontender with active bowel sounds. EXTREMITIES: Neurovascularly intact x4. Postop dressing is clean, dry, and intact. LABORATORY FINDINGS: White blood cell count 4.7, hemoglobin 11.6, hematocrit 34.3, platelets 98. Sodium 138, potassium 4.6, chloride 104, CO2 of 26, BUN 16, creatinine 1.03, glucose 84, magnesium 2.2, phosphorus 2.8, total bilirubin 1.7, direct bilirubin 1.1, AST 1511, ALT 1466, alkaline phosphatase 180. INR 1.5. There are no radiographs reviewed this morning. ASSESSMENT AND PLAN: 1. Status post fall from standing, on Coumadin. 2. Status post open reduction and internal fixation of left femoral neck fracture. 3. Left elbow skin tear. 4. History of bovine valve replacement, pacemaker, seizures, and chronic kidney disease stage 3. PLAN: Plan will be to continue supportive care. Begin physical and occupational therapy tomorrow. Transition to oral pain medications. Repeat INR and begin bridge for resumption of Coumadin. Job ID: [id number]
[2019-08-03] MEDS: Acetaminophen/Codeine 30-300mg Tablet PO PRN (23:54)
[2019-08-04] MEDS: Acetaminophen 325 MG TAB PO SCH (02:42)
[2019-08-04 05:31] LABS: Anion Gap 10 mmol/L (10-20); BUN (Urea Nitrogen) 24 mg/dL (9.8-20.1); Calc. Creatinine Clearance 35 mL/min (70-130); Calcium 7.6 mg/dL (7.8-10.44); Carbon Dioxide 25 mmol/L (23-31); Chloride 104 mmol/L (98-107); Estimated GFR-MDRD 39; Glucose 144 mg/dL (83-110); Phosphorus 2.6 mg/dL (2.3-4.7); Potassium 4.4 mmol/L (3.5-5.1); Sodium 135 mmol/L (136-145)
[2019-08-04 05:33] LABS: ALT (SGPT) 742 U/L (8-55); AST (SGOT) 616 U/L (5-34); Albumin 2.9 g/dL (3.4-4.8); Alkaline Phosphatase 134 U/L (40-110); Bilirubin, Direct 0.3 mg/dL (0.1-0.3); Bilirubin, Total 0.5 mg/dL (0.2-1.2); Protein, Total 5.2 g/dL (6.0-8.3)
[2019-08-04 05:35] LABS: INR-International Normal Ratio 1.2; Prothrombin Time 15.2 sec (12.0-14.7)
[2019-08-04 05:50] LABS: #Lymphocytes 1.3 thou/uL (1.20-3.40); #Monocytes 1.1 thou/uL (0.11-0.59); #Neutrophils 6.8 thou/uL (1.40-6.50); %Basophils 0.3 % (0.0-1.0); %Eosinophils 0.5 % (0.0-10.0); %Lymphocytes 14.1 % (21.0-51.0); %Monocytes 12.1 % (0.0-10.0); %Neutrophils 72.9 % (42.0-75.0); Hemoglobin 9.1 g/dL (12.0-16.0); Mean Corpuscular HGB CONC 32.7 g/dL (32.0-36.0); Mean Corpuscular Hemoglobin 33.6 pg (27.0-31.0); Mean Platelet Volume 9.2 fL (7.4-10.4); Platelet Count 103 thou/uL (130-400); Red Blood Cell (RBC) Count 2.69 mill/uL (4.20-5.40); White Blood Cell (WBC) Count 9.4 thou/uL (4.8-10.8)
--- NOTE | 2019-08-04 08:02 | PRG ---
DATE OF SERVICE: 08/04/2019 SUBJECTIVE: Ms. Ventura is a pleasant 89-year-old female, status post left hip hemiarthroplasty, cemented. The patient otherwise in bed, no acute complaints, resting comfortably. OBJECTIVE: VITAL SIGNS: Temperature 98.6, pulse 61, respiratory rate 16, and blood pressure 109/62. GENERAL: Alert and oriented female in no acute distress. EXTREMITIES: Left lower extremity is neurovascularly intact. Leg lengths seem appropriate. Brisk cap refill. LABORATORY DATA: H and H 9.1 and 27.6. Radiographs show good overall line of fixation of her hemiarthroplasty with near anatomic lengths. IMPRESSION: Left hip hemiarthroplasty. ASSESSMENT AND PLAN: The patient will weightbear as tolerated. Likely need long term placement. She will be followed inhouse along with Trauma. Job ID: [id number]
--- NOTE | 2019-08-04 08:31 | OP ---
DATE OF PROCEDURE: 08/03/2019 PREOPERATIVE DIAGNOSIS: Left femoral neck fracture. POSTOPERATIVE DIAGNOSIS: Left femoral neck fracture. PROCEDURE PERFORMED: Left hip hemiarthroplasty. INSTRUMENT CALIBRATOR: Koby Ron PA-C. ANESTHESIA: Dr. Miller. The patient received a general endotracheal intubation. ESTIMATED BLOOD LOSS: 450 cc TOURNIQUET TIME: None. IMPLANTS: [place] size 3 Accolade cemmented stem, with a -4 neck sleeve, a 46 mm endoprosthesis, an 18 mm bone plug, and a single dose Simplex bone cement. ANTIBIOTIC: 2 grams ancef COMPLICATIONS: None. INDICATIONS FOR PROCEDURE: Ms. Ventura is 89 years old, who fell and sustained a left femoral neck fracture. The patient has cardiac history, is waiting for correction of her INR. The patient received FFP, corrected to 1.7, was 1.5 intraoperative. I discussed with the patient about risks and benefits of surgery , pain, scar, bleeding, infection, damage to vital structures, continued pain despite surgical intervention, need for further surgeries, potentiel of loss of life or limb. The patient understood the risks and benefits. She understood she may need blood transfusion. She understood these risks and elected to proceed. DESCRIPTION OF PROCEDURE: Time-out was performed designating the patient's left lower extremity as the operative site based on site, consent, and markings. After time-out, the patient's left lower extremity was prepped and draped in sterile fashion, placed in lateral position with bony prominences well padded and axillary roll in place. I made a lateral incision down through skin, took down to the IT band, then took down to the gluteus medius and minimus, just a flag distally. Came down, split the capsule, challenging ability to get to the patient's head. She had a shallow acetabulum, difficulty exposing the neck. We were able to get the head out in one piece, it sized right up to about, it did not fall through a 46, therefore we chose a 46 mm head. We used our hot box operator and opened the femur and then we then broached. We started with a cementless stem, but I had to move to the cemented stem because of toggling proximally. We moved up, ultimately chose a 3 because we had version, and we could not align it in the position we liked. So we chose a size 3 stem. We placed a cement restrictor distallyr, we passed cement as a component of rolled into a lump, passed that down into the bone. We then passed our implant. We removed all excess cement, pressed it around, ensured it was completely stable. We allowed it to set for 18 minutes. When it was hardened, we trialed with the 46, -4, put in place, reduced. Still a little bit prominent, but we went back, she had a shallow acetabulum. We washed, closed the capsule, T'd capsule with #2. We closed the gluteus minimus and medius with #2, closed the IT band with 0 Stratafix, 2-0 Stratafix and glue for the skin. The patient may weightbear as tolerated. We will follow inhouse. She will receive antibiotics x24 hours and potentially need a transfusion tomorrow. Job ID: [id number] MTDD
[2019-08-04] MEDS: Acetaminophen/Codeine 30-300mg Tablet PO PRN ×2 (08:33→14:05)
[2019-08-04] MEDS: Senokot S 8.6-50 MG TAB PO SCH ×2 (08:33→20:47)
[2019-08-04] MEDS: Polyethylene Glycol 3350 17 GM Packet PO SCH (08:34)
[2019-08-04] MEDS: Propafenone HCl 150 MG TAB PO SCH ×3 (08:34→20:47)
[2019-08-04] MEDS ORDERED: Aspirin 81 mg Enteric Coated Tablet PO SCH (09:00)
[2019-08-04] MEDS ORDERED: Furosemide 20 MG TAB PO SCH (09:00)
[2019-08-04] MEDS: hydrALAZINE 10 MG TAB PO SCH ×2 (10:24→20:49)
[2019-08-04] MEDS: Amlodipine 5 MG TAB PO SCH ×2 (10:24→20:48)
[2019-08-04] MEDS: Aspirin 81 mg Enteric Coated Tablet PO SCH ×2 (10:24→20:47)
[2019-08-04] MEDS ORDERED: Acetaminophen/Codeine 30-300mg Tablet PO PRN (13:38)
[2019-08-04] MEDS: Warfarin Sodium 3 MG TAB PO SCH (17:47)
[2019-08-04] MEDS: lamoTRIgine 100 MG TAB PO SCH (20:47)
[2019-08-05 05:59] LABS: INR-International Normal Ratio 1.1; Prothrombin Time 14.6 sec (12.0-14.7)
[2019-08-05 07:26] LABS: #Eosinphils 0.3 thou/uL (0.0-0.7); #Monocytes 1.4 thou/uL (0.11-0.59); %Basophils 0.3 % (0.0-1.0); %Lymphocytes 18.9 % (21.0-51.0); %Monocytes 12.9 % (0.0-10.0); %Neutrophils 64.9 % (42.0-75.0); Hemoglobin 8.7 g/dL (12.0-16.0); Mean Corpuscular HGB CONC 33.5 g/dL (32.0-36.0); Mean Corpuscular Hemoglobin 34.5 pg (27.0-31.0); Mean Platelet Volume 8.8 fL (7.4-10.4); Platelet Count 98 thou/uL (130-400); Red Blood Cell (RBC) Count 2.53 mill/uL (4.20-5.40); White Blood Cell (WBC) Count 10.7 thou/uL (4.8-10.8)
[2019-08-05 07:47] LABS: Anion Gap 8 mmol/L (10-20); BUN (Urea Nitrogen) 12 mg/dL (9.8-20.1); Calc. Creatinine Clearance 54 mL/min (70-130); Carbon Dioxide 28 mmol/L (23-31); Chloride 101 mmol/L (98-107); Estimated GFR-MDRD 63; Glucose 138 mg/dL (83-110); Magnesium 1.9 mg/dL (1.6-2.6); Sodium 133 mmol/L (136-145)
[2019-08-05 07:51] LABS: ALT (SGPT) 311 U/L (8-55); AST (SGOT) 220 U/L (5-34); Albumin 2.8 g/dL (3.4-4.8); Alkaline Phosphatase 118 U/L (40-110); Bilirubin, Direct 0.4 mg/dL (0.1-0.3); Bilirubin, Total 0.7 mg/dL (0.2-1.2); Phosphorus 1.6 mg/dL (2.3-4.7); Protein, Total 5.3 g/dL (6.0-8.3)
--- NOTE | 2019-08-05 07:55 | PRG ---
DATE OF SERVICE: 08/05/2019 CHIEF COMPLAINT: Left hip pain. HISTORY OF PRESENT ILLNESS: Ms. Ventura is an 89-year-old female, status post left hip hemiarthroplasty. She is resting comfortably in bed. The patient ambulated 5 steps. The patient's family states she is feeling constipated. No other acute complaints or events. PHYSICAL EXAMINATION: VITAL SIGNS: Temperature 98.6, pulse 64, respirations 16, and blood pressure 117/62. EXTREMITIES: Left lower extremity wounds clean, dry, and intact. Neurovascularly intact. LABORATORY DATA: Hemoglobin and hematocrit pending. IMPRESSION: Left hip hemiarthroplasty for femoral neck fracture. ASSESSMENT AND PLAN: The patient will be weightbearing as tolerated, will need disposition. Her INR is being corrected back to normal. She will follow inhouse. Job ID: [id number]
[2019-08-05] MEDS ORDERED: PHOS-NAK 1 PKT PACK PO SCH (09:00)
[2019-08-05] MEDS: Acetaminophen/Codeine 30-300mg Tablet PO PRN ×2 (09:47→16:48)
[2019-08-05] MEDS: Propafenone HCl 150 MG TAB PO SCH ×2 (09:47→15:29)
[2019-08-05] MEDS: Senokot S 8.6-50 MG TAB PO SCH (09:48)
[2019-08-05] MEDS: Amlodipine 5 MG TAB PO SCH (09:48)
[2019-08-05] MEDS: Aspirin 81 mg Enteric Coated Tablet PO SCH (09:49)
[2019-08-05] MEDS: Polyethylene Glycol 3350 17 GM Packet PO SCH (09:49)
[2019-08-05] MEDS: hydrALAZINE 10 MG TAB PO SCH (09:52)
[2019-08-05 15:50] VITALS: BP 108/62; TEMP 98.4
--- NOTE | 2019-08-05 16:24 | PRG ---
DATE OF SERVICE: 08/04/2019 SUBJECTIVE: The patient was evaluated today during morning rounds. She was lying back in bed, in no acute distress at this time. She continues to tolerate some p.o. and work with PT at this time. PT has recommended that she has good rehab potential and recommended rehab at this time, and a post-acute screen has been placed. Dr. Melvin followed up on the patient today and recommended weightbearing as tolerated with likely long-term placement. She reports that her pain is well controlled at this time. OBJECTIVE: VITAL SIGNS: Temperature 98.3, pulse 63, respiratory rate 14, 96% on room air, blood pressure 121/70. GENERAL: Elderly female, lying in bed, in no acute distress at this time. HEENT: Normocephalic, atraumatic. LUNGS: Equal rise and fall. The patient in no acute respiratory distress. HEART: Regular rate, regular rhythm. ABDOMEN: Soft, nondistended, nontender to palpation, active bowel sounds. EXTREMITIES: Bandaging clean, dry, and intact. Neurovascularly intact x4. LABORATORY DATA: White count 9.4, hemoglobin 9.1, hematocrit 27.6, platelets 103. Coagulation; PT 15.2, INR 1.2, PTT 34.0. Sodium 135, potassium 4.4, chloride 104, carbon dioxide 25, BUN 24, creatinine 1.3, GFR 39, phosphorus 2.6, magnesium 2.0, total bilirubin 0.5, direct bilirubin 0.3 , AST 616, ALT 742, alkaline phosphatase 134. DIAGNOSTIC IMAGING: No new diagnostic imaging to report. ASSESSMENT: 1. Status post fall from standing on Coumadin. 2. Status post open reduction and internal fixation of left femoral neck fracture. 3. Left elbow skin tear. 4. History of bovine valve replacement, pacemaker, seizures, chronic kidney disease stage 3, atrial fibrillation. PLAN: We will continue supportive care at this time. The patient reports good pain control and tolerating a diet at this time. The patient was started on 81 mg of aspirin p.o. b.i.d. for VTE prophylaxis status post hip repair. The patient's warfarin was restarted again today as well and we will continue the b.i.d. aspirin dosing until the patient has therapeutic warfarin. The patient's liver enzymes were evaluated today and they have downtrended since yesterday and is likely this is due to an ischemic process and should continue to improve. However, it would be recommended to the patient upon discharge to follow up with her PCP to discuss any hepatotoxic agents she is on including statins and/or Tylenol. Case Management to continue working on placement for the patient including placement in [place] as that would be closer to home. The patient is agreeable with the plan of care and we will continue to follow until patient finds placement and/or is discharged. The case was discussed with Dr. Zuñiga during morning rounds and he is agreeable with the plan of care. Job ID: [id number] MTDD
[2019-08-05] MEDS: Warfarin Sodium 3 MG TAB PO SCH (16:46)
== END 2019-08-05 17:10 | disposition swing bed (61) | DRG 470 ==
LOC: ERS 19:04 → SJJU 20:32
PROVIDERS: ADMIT Specialist; ATTEND Specialist
PROC: 0SRS0J9 Replacement of Left Hip Joint, Femoral Surface with Synthetic Substitute, Cemented, Open Approach (ICD-10-PCS; principal; 2019-08-03)
DX: S72.002A Fracture of unspecified part of neck of left femur, initial encounter for closed fracture (principal); E78.00 Pure hypercholesterolemia, unspecified; E78.5 Hyperlipidemia, unspecified; I48.91 Unspecified atrial fibrillation; G40.909 Epilepsy, unspecified, not intractable, without status epilepticus; K21.9 Gastro-esophageal reflux disease without esophagitis; N18.3 Chronic kidney disease, stage 3 (moderate); R74.0 Nonspecific elevation of levels of transaminase and lactic acid dehydrogenase [LDH]; I25.10 Atherosclerotic heart disease of native coronary artery without angina pectoris; W01.0XXA Fall on same level from slipping, tripping and stumbling without subsequent striking against object, initial encounter; S51.012A Laceration without foreign body of left elbow, initial encounter; Z90.49 Acquired absence of other specified parts of digestive tract; Z95.0 Presence of cardiac pacemaker; Z90.710 Acquired absence of both cervix and uterus; Z88.0 Allergy status to penicillin; Z79.01 Long term (current) use of anticoagulants; Z95.1 Presence of aortocoronary bypass graft
CPT/HCPCS: 36415; 36430; 51702; 71045; 72170; 80048; 80053; 80076; 81001; 81003; 82533; 83735; 84100; 85007; 85025; 85027; 85610; 85730; 86850; 86900; 86901; 87086; 90714; 93005; 93306; 96361; 96374; 96375; 96376; C1713; G0390; J0690; J1100; J2270; J2405; J2550; J2704; J3010; J3430; J3475; P9059

== ENCOUNTER 2020-10-07 11:28 | Day surgery (SDC) | payer MEDICARE ==
[2020-10-07 12:49] LABS: Anion Gap 12 mmol/L (10-20); BUN (Urea Nitrogen) 25 mg/dL (9.8-20.1); Calc. Creatinine Clearance 0 mL/min (70-130); Calcium 9.5 mg/dL (7.8-10.44); Carbon Dioxide 29 mmol/L (23-31); Chloride 101 mmol/L (98-107); Glucose 100 mg/dL (83-110); Potassium 4.1 mmol/L (3.5-5.1); Sodium 138 mmol/L (136-145)
[2020-10-07] MEDS ORDERED: PROPOFOL 200 MG/20 ML VIAL ONE (12:54)
== END 2020-10-07 14:52 | disposition home or self-care (01) ==
LOC: CCL 11:28
PROVIDERS: ATTEND Internal Medicine Cardiovascular Disease
PROC: B24BZZ4 Ultrasonography of Heart with Aorta, Transesophageal (ICD-10-PCS; principal; 2020-10-07)
DX: I08.1 Rheumatic disorders of both mitral and tricuspid valves (principal); I70.0 Atherosclerosis of aorta; I25.10 Atherosclerotic heart disease of native coronary artery without angina pectoris; I48.0 Paroxysmal atrial fibrillation; E78.00 Pure hypercholesterolemia, unspecified; I11.0 Hypertensive heart disease with heart failure; I50.32 Chronic diastolic (congestive) heart failure; I87.2 Venous insufficiency (chronic) (peripheral); G25.0 Essential tremor; K21.9 Gastro-esophageal reflux disease without esophagitis; G40.909 Epilepsy, unspecified, not intractable, without status epilepticus; Z79.01 Long term (current) use of anticoagulants; Z79.82 Long term (current) use of aspirin; Z79.899 Other long term (current) drug therapy; Z88.0 Allergy status to penicillin; Z95.0 Presence of cardiac pacemaker; Z95.2 Presence of prosthetic heart valve
CPT/HCPCS: 80048; 93005; 93010; 93312; J2704

== ENCOUNTER 2021-07-08 14:54 | Inpatient (IN) | payer MEDICARE ==
[2021-07-08 15:59] LABS: #Eosinphils 0.3 thou/uL (0.0-0.7); #Monocytes 0.9 thou/uL (0.11-0.59); #Neutrophils 3.8 thou/uL (1.40-6.50); %Basophils 0.2 % (0.0-1.0); %Eosinophils 3.7 % (0.0-10.0); %Lymphocytes 29.1 % (21.0-51.0); %Monocytes 13.3 % (0.0-10.0); %Neutrophils 53.7 % (42.0-75.0); Hemoglobin 10.3 g/dL (12.0-16.0); Mean Corpuscular HGB CONC 31.6 g/dL (32.0-36.0); Mean Corpuscular Hemoglobin 33.5 pg (27.0-31.0); Mean Platelet Volume 7.8 fL (7.4-10.4); Platelet Count 203 thou/uL (130-400); RBC Distribution Width 11.5 % (11.5-14.5); Red Blood Cell (RBC) Count 3.06 mill/uL (4.20-5.40)
[2021-07-08] MEDS ORDERED: Iopamidol-370 76% 500 ML 1 ML ONE (16:11)
[2021-07-08 16:16] LABS: ALT (SGPT) 18 U/L (8-55); AST (SGOT) 25 U/L (5-34); Albumin 3.4 g/dL (3.4-4.8); Alkaline Phosphatase 82 U/L (40-110); Anion Gap 12 mmol/L (10-20); BUN (Urea Nitrogen) 24 mg/dL (9.8-20.1); Bilirubin, Total 0.7 mg/dL (0.2-1.2); Calc. Creatinine Clearance 0 mL/min (70-130); Calcium 8.9 mg/dL (7.8-10.44); Carbon Dioxide 32 mmol/L (23-31); Chloride 98 mmol/L (98-107); Globulin 3.5 g/dL (2.4-3.5); Glucose 107 mg/dL (83-110); Potassium 3.9 mmol/L (3.5-5.1); Protein, Total 6.9 g/dL (5.8-8.1); Sodium 138 mmol/L (136-145)
[2021-07-08 16:24] LABS: MDiff Complete? YES; Macrocytosis SLIGHT = 6-15 cells (100X) (0-5/hpf); Platelet Morphology Comment Appears Adequate; Polychromasia SLIGHT = 2-3 cells (100X) (0-2/hpf)
[2021-07-08 16:25] LABS: INR-International Normal Ratio 3.2; Prothrombin Time 33.8 sec (12.0-14.7)
[2021-07-08] MEDS ORDERED: Ondansetron PF 4 MG/2 ML Vial IVP PRN (20:45)
[2021-07-08] MEDS ORDERED: Ondansetron ODT 4 MG TAB SL PRN (20:45)
[2021-07-08] MEDS ORDERED: Acetaminophen 325 MG TAB PO PRN (20:45)
[2021-07-08 20:55] VITALS: BMI 22.2
[2021-07-08] MEDS ORDERED: Acetaminophen 650 MG Suppository PR PRN (21:07)
[2021-07-08] MEDS ORDERED: hydrALAZINE 20 MG/ML VIAL SLOW IVP PRN (21:07)
[2021-07-09] MEDS ORDERED: Sodium Chloride 0.9% 1,000 ML IV SCH (02:45)
[2021-07-09 05:25] LABS: #Eosinphils 0.3 thou/uL (0.0-0.7); #Lymphocytes 1.9 thou/uL (1.20-3.40); #Monocytes 0.9 thou/uL (0.11-0.59); #Neutrophils 3.4 thou/uL (1.40-6.50); %Basophils 0.1 % (0.0-1.0); %Eosinophils 4.4 % (0.0-10.0); %Lymphocytes 29.3 % (21.0-51.0); %Monocytes 13.6 % (0.0-10.0); %Neutrophils 52.7 % (42.0-75.0); Hemoglobin 9.7 g/dL (12.0-16.0); Mean Corpuscular HGB CONC 32.7 g/dL (32.0-36.0); Mean Corpuscular Hemoglobin 34.7 pg (27.0-31.0); Mean Platelet Volume 7.9 fL (7.4-10.4); Platelet Count 195 thou/uL (130-400); RBC Distribution Width 11.6 % (11.5-14.5); Red Blood Cell (RBC) Count 2.78 mill/uL (4.20-5.40); White Blood Cell (WBC) Count 6.4 thou/uL (4.8-10.8)
[2021-07-09 05:51] LABS: Anion Gap 12 mmol/L (10-20); BUN (Urea Nitrogen) 21 mg/dL (9.8-20.1); Calc. Creatinine Clearance 36 mL/min (70-130); Calcium 8.6 mg/dL (7.8-10.44); Carbon Dioxide 30 mmol/L (23-31); Cardiac Risk 2.6 (Less than 4.5); Chloride 101 mmol/L (98-107); Cholesterol 82 mg/dl (< 200 Desired); Glucose 103 mg/dL (83-110); HDL Cholesterol 32 mg/dL (>60 Neg Risk); LDL Cholesterol, Calculated 37 mg/dL; Potassium 3.6 mmol/L (3.5-5.1); Sodium 139 mmol/L (136-145); Triglycerides 63 mg/dL (Less than 150)
[2021-07-09] MEDS ORDERED: Furosemide 100 MG/10 ML VIAL SLOW IVP SCH (08:45)
[2021-07-09] MEDS: Aspirin 81 mg Enteric Coated Tablet PO SCH (08:57)
[2021-07-09] MEDS: Propafenone HCl 150 MG TAB PO SCH ×3 (09:22→20:21)
[2021-07-09] MEDS: lamoTRIgine 100 MG TAB PO SCH (09:22)
[2021-07-09] MEDS: Senokot S 8.6-50 MG TAB PO SCH ×2 (09:23→20:21)
[2021-07-09] MEDS ORDERED: Electrolyte Replacement Protocol FS PRN (10:00)
[2021-07-09] MEDS ORDERED: Electrolyte Replacement Protocol 1 EACH FS SCH (10:00)
[2021-07-09 10:15] LABS: INR-International Normal Ratio 2.4
[2021-07-09] MEDS: Furosemide 100 MG/10 ML VIAL SLOW IVP SCH (14:27)
[2021-07-09 15:39] LABS: SARS-CoV-2 PCR by NAA Not Detected (NotDetected)
[2021-07-09] MEDS: Warfarin Sodium 5 MG TAB PO SCH (16:16)
[2021-07-09] MEDS ORDERED: Warfarin Sodium 3 MG TAB PO SCH (17:00)
[2021-07-09] MEDS: Atorvastatin Calcium 40 MG TAB PO SCH (20:21)
[2021-07-10 05:30] LABS: #Eosinphils 0.3 thou/uL (0.0-0.7); #Lymphocytes 1.8 thou/uL (1.20-3.40); #Monocytes 0.9 thou/uL (0.11-0.59); #Neutrophils 3.7 thou/uL (1.40-6.50); %Basophils 0.1 % (0.0-1.0); %Eosinophils 4.7 % (0.0-10.0); %Neutrophils 55.2 % (42.0-75.0); Hemoglobin 10.2 g/dL (12.0-16.0); Mean Corpuscular HGB CONC 32.8 g/dL (32.0-36.0); Mean Corpuscular Hemoglobin 34.4 pg (27.0-31.0); Platelet Count 208 thou/uL (130-400); RBC Distribution Width 11.5 % (11.5-14.5); Red Blood Cell (RBC) Count 2.95 mill/uL (4.20-5.40); White Blood Cell (WBC) Count 6.7 thou/uL (4.8-10.8)
[2021-07-10 05:41] LABS: INR-International Normal Ratio 2.2; Prothrombin Time 24.4 sec (12.0-14.7)
[2021-07-10] MEDS: Furosemide 100 MG/10 ML VIAL SLOW IVP SCH ×2 (05:44→14:22)
[2021-07-10 05:52] LABS: Anion Gap 9 mmol/L (10-20); BUN (Urea Nitrogen) 18 mg/dL (9.8-20.1); Calc. Creatinine Clearance 37 mL/min (70-130); Calcium 8.7 mg/dL (7.8-10.44); Carbon Dioxide 33 mmol/L (23-31); Chloride 99 mmol/L (98-107); Glucose 105 mg/dL (83-110); Potassium 3.4 mmol/L (3.5-5.1); Sodium 138 mmol/L (136-145)
[2021-07-10] MEDS ORDERED: Potassium Chloride 20 MEQ TAB PO SCH (08:00)
[2021-07-10] MEDS: Aspirin 81 mg Enteric Coated Tablet PO SCH (09:55)
[2021-07-10] MEDS: lamoTRIgine 100 MG TAB PO SCH (09:55)
[2021-07-10] MEDS: Propafenone HCl 150 MG TAB PO SCH ×3 (09:55→20:48)
[2021-07-10] MEDS ORDERED: Polyethylene Glycol 3350 17 GM Packet PO PRN (10:15)
[2021-07-10] MEDS: Senokot S 8.6-50 MG TAB PO SCH ×2 (12:03→20:47)
[2021-07-10] MEDS: Docusate 100 MG CAP PO SCH ×3 (14:21→20:47)
[2021-07-10] MEDS: Warfarin Sodium 5 MG TAB PO SCH (16:29)
[2021-07-10] MEDS: Atorvastatin Calcium 40 MG TAB PO SCH (20:48)
[2021-07-11 04:26] LABS: INR-International Normal Ratio 2.1; Prothrombin Time 23.9 sec (12.0-14.7)
[2021-07-11 04:33] LABS: Anion Gap 12 mmol/L (10-20); BUN (Urea Nitrogen) 23 mg/dL (9.8-20.1); Calc. Creatinine Clearance 34 mL/min (70-130); Calcium 8.6 mg/dL (7.8-10.44); Carbon Dioxide 30 mmol/L (23-31); Chloride 100 mmol/L (98-107); Glucose 112 mg/dL (83-110); Potassium 3.6 mmol/L (3.5-5.1); Sodium 138 mmol/L (136-145)
[2021-07-11] MEDS: Senokot S 8.6-50 MG TAB PO SCH ×2 (07:27→21:09)
[2021-07-11] MEDS: Docusate 100 MG CAP PO SCH ×2 (07:28→21:09)
[2021-07-11] MEDS: Aspirin 81 mg Enteric Coated Tablet PO SCH (08:53)
[2021-07-11] MEDS: Furosemide 80 MG TAB PO SCH ×2 (08:53→14:37)
[2021-07-11] MEDS: Propafenone HCl 150 MG TAB PO SCH ×4 (08:53→21:07)
[2021-07-11] MEDS: lamoTRIgine 100 MG TAB PO SCH (08:53)
[2021-07-11] MEDS: Warfarin Sodium 5 MG TAB PO SCH (16:08)
[2021-07-11] MEDS: Atorvastatin Calcium 40 MG TAB PO SCH (21:07)
[2021-07-12 05:18] LABS: INR-International Normal Ratio 1.9; Prothrombin Time 21.8 sec (12.0-14.7)
[2021-07-12 05:31] LABS: Anion Gap 10 mmol/L (10-20); BUN (Urea Nitrogen) 24 mg/dL (9.8-20.1); Calc. Creatinine Clearance 32 mL/min (70-130); Calcium 8.8 mg/dL (7.8-10.44); Carbon Dioxide 33 mmol/L (23-31); Chloride 99 mmol/L (98-107); Glucose 97 mg/dL (83-110); Potassium 3.7 mmol/L (3.5-5.1); Sodium 138 mmol/L (136-145)
[2021-07-12] MEDS: Docusate 100 MG CAP PO SCH (07:25)
[2021-07-12] MEDS: Senokot S 8.6-50 MG TAB PO SCH (07:25)
[2021-07-12] MEDS: Furosemide 80 MG TAB PO SCH ×2 (08:04→14:11)
[2021-07-12] MEDS: Aspirin 81 mg Enteric Coated Tablet PO SCH (08:04)
[2021-07-12] MEDS: Propafenone HCl 150 MG TAB PO SCH ×2 (08:04→14:11)
[2021-07-12] MEDS: lamoTRIgine 100 MG TAB PO SCH (08:04)
[2021-07-12 12:18] VITALS: BP 108/57
[2021-07-12 15:44] VITALS: TEMP 98.4
[2021-07-12] MEDS ORDERED: Warfarin Sodium 3 MG TAB PO SCH (17:00)
== END 2021-07-12 17:22 | disposition home health service (06) | DRG 123 ==
LOC: ERS 14:54 → NEURO 18:39 → OBSVTOIN 18:52
PROVIDERS: ADMIT Internal Medicine; ATTEND Emergency Medicine
DX: H34.12 Central retinal artery occlusion, left eye (principal); I50.33 Acute on chronic diastolic (congestive) heart failure; I48.11 Longstanding persistent atrial fibrillation; N17.9 Acute kidney failure, unspecified; I13.0 Hypertensive heart and chronic kidney disease with heart failure and stage 1 through stage 4 chronic kidney disease, or unspecified chronic kidney disease; M19.90 Unspecified osteoarthritis, unspecified site; D63.1 Anemia in chronic kidney disease; E78.5 Hyperlipidemia, unspecified; I07.1 Rheumatic tricuspid insufficiency; E78.00 Pure hypercholesterolemia, unspecified; I25.10 Atherosclerotic heart disease of native coronary artery without angina pectoris; N18.30 Chronic kidney disease, stage 3 unspecified; K21.9 Gastro-esophageal reflux disease without esophagitis; Z20.822 Contact with and (suspected) exposure to COVID-19; Z79.01 Long term (current) use of anticoagulants; Z95.0 Presence of cardiac pacemaker; Z90.49 Acquired absence of other specified parts of digestive tract; Z90.710 Acquired absence of both cervix and uterus; Z95.1 Presence of aortocoronary bypass graft; Z95.2 Presence of prosthetic heart valve; Z88.1 Allergy status to other antibiotic agents; Z88.0 Allergy status to penicillin; Z79.82 Long term (current) use of aspirin
CPT/HCPCS: 36415; 70496; 70498; 80048; 80053; 80061; 85025; 85610; 85730; 93005; 93306; J1940; J7050; Q9967; U0003; U0005